=== PATIENT | male | born 1955 | race Caucasian/White ===

== ENCOUNTER 2019-07-25 13:03 | Emergency (ER) | payer MEDICARE, OTHER ==
[~2019-07-25] VITALS: Ht 187 cm; Wt 102.0 kg
[2019-07-25 13:08] VITALS: BP 147/78
--- OUTSIDE RECORDS SUMMARY | 2019-07-25 13:08 | XMS REPORT | Continuity of Care Document ---
Author Organization Unknown Address Unknown Phone Unavailable Allergies There is no data. Medications There is no data. Problems There is no data. Procedures There is no data. Results Test Result Range URIC ACID, SERUM - 07/14/18 12:19 URIC ACID 6.1 mg/dL 4.0-8.0 CBC w/MANUAL DIFF - 07/14/18 12:19 WHITE BLOOD CELL COUNT 7.5 Thousand/uL 3 .8-10.8 RED BLOOD CELL COUNT 4.26 Million/uL 4.2 0-5.80 HEMOGLOBIN 12.4 g/dL 13.2-17.1 HEMATOCRIT 38.5 % 38.5-50.0 MCV 90.4 fL 80.0-100.0 MCH 29.1 pg 27.0-33.0 MCHC 32.2 g/dL 32.0-36.0 RDW 13.2 % 11.0-15.0 PLATELET COUNT 257 Thousand/uL 140-400 MPV 9.8 fL 7.5-12.5 ABSOLUTE NEUTROPHILS 5460 cells/uL 1500- 7800 ABSOLUTE MONOCYTES 585 cells/uL 200-950 ABSOLUTE EOSINOPHILS 218 cells/uL 15-500 ABSOLUTE BASOPHILS 0 cells/uL 0-200 NEUTROPHILS 72.8 % NRG LYMPHOCYTES 13.6 % NRG MONOCYTES 7.8 % NRG EOSINOPHILS 2.9 % NRG BASOPHILS 0 % NRG ABSOLUTE BAND NEUTROPHILS 218 cells/uL 0 -750 ABSOLUTE LYMPHOCYTES 1020 cells/uL 850-3 900 BAND NEUTROPHILS 2.9 % NRG PLATELET ESTIMATION ADEQUATE ADEQUATE CBC MORPHOLOGY NORMAL COMMENT(S) NRG ESR/SED RATE - 07/14/18 12:19 SED RATE BY MODIFIED WESTERGREN 34 mm/h < OR = 20 CBC w/MANUAL DIFF - 07/24/18 15:07 WHITE BLOOD CELL COUNT 7.5 Thousand/uL 3 .8-10.8 RED BLOOD CELL COUNT 4.19 Million/uL 4.2 0-5.80 HEMOGLOBIN 12.2 g/dL 13.2-17.1 HEMATOCRIT 37.9 % 38.5-50.0 MCV 90.5 fL 80.0-100.0 MCH 29.1 pg 27.0-33.0 MCHC 32.2 g/dL 32.0-36.0 RDW 13.2 % 11.0-15.0 PLATELET COUNT 269 Thousand/uL 140-400 MPV 9.7 fL 7.5-12.5 ABSOLUTE NEUTROPHILS 5625 cells/uL 1500- 7800 ABSOLUTE MONOCYTES 75 cells/uL 200-950 ABSOLUTE EOSINOPHILS 158 cells/uL 15-500 ABSOLUTE BASOPHILS 158 cells/uL 0-200 NEUTROPHILS 75.0 % NRG LYMPHOCYTES 16.7 % NRG MONOCYTES 1.0 % NRG EOSINOPHILS 2.1 % NRG BASOPHILS 2.1 % NRG ABSOLUTE BAND NEUTROPHILS 233 cells/uL 0 -750 ABSOLUTE LYMPHOCYTES 1253 cells/uL 850-3 900 BAND NEUTROPHILS 3.1 % NRG PLATELET ESTIMATION ADEQUATE ADEQUATE CBC MORPHOLOGY NORMAL ESR/SED RATE - 07/24/18 15:07 SED RATE BY MODIFIED WESTERGREN 19 mm/h < OR = 20 RA (RHEUMATOID) FACTOR - 07/24/18 15:07 RHEUMATOID FACTOR <14 IU/mL <14 WOO - 07/24/18 15:07 WOO SCREEN, IFA NEGATIVE NEGATIVE LYME, TOTAL ANTIBODY/REFLEX WESTERN BLOT - 07/30/18 09:41 LYME AB SCREEN <0.90 index NRG ESR/SED RATE - 02/23/19 15:22 SED RATE BY MODIFIED WESTERGREN 9 mm/h < OR = 20 TESTOSTERONE, FREE AND TOTAL - 02/23/19 15:22 TESTOSTERONE, TOTAL, LC/MS/MS 128 ng/dL 250-1100 TESTOSTERONE, FREE 23.1 pg/mL 46.0-224.0 TESTOSTERONE,BIOAVAILABLE 42.5 ng/dL 110 .0-575.0 SEX HORMONE BINDING GLOBULIN 20 nmol/L 2 2-77 A1C - 02/23/19 15:22 HEMOGLOBIN A1c 5.1 % of total Hgb <5.7 VITAMIN B12/FOLATE, SERUM PANEL - 15:22 VITAMIN B12 >2000 pg/mL 200-1100 FOLATE, SERUM >24.0 ng/mL NRG Encounters ACCT No. Visit Date/Time Discharge Status Pt. Type Provider Facility Loc./Unit Complaint [id number] 03/26/2019 13:30:00 03/26/2019 23:59:5 9 [facility] Outpatient [facility] [id number] 02/23/2019 15:15:00 Document Registration [id number] 07/30/2018 10:00:00 Document Registration [id number] 07/24/2018 14:15:00 Document Registration [id number] 07/14/2018 11:40:00 Document Registration
--- OUTSIDE RECORDS SUMMARY | 2019-07-25 13:08 | XMS REPORT ---
Author Author Francisco BROWN [facility] MAIN Address [address] [place] [address] Care Team Providers Care Mammography Technologist Name Role Phone JAIMEE BROWN Unavailable PROBLEMS Type Condition ICD9-CM Code ARR36-ON Code Onset Dates Condition S tatus SNOMED Code Problem Situational depression F43.21 Active 63045588 Problem Hyperglyceridemia, pure E78.1 Active 000714684 Problem Other, mixed, or unspecified nondependent drug a buse, unspecified F19.10 Active 051133493 Problem Peyronie disease N48.6 Active 133 5005 Problem Exacerbation of Crohn''s disease with complication K50.919 Active 96977331 Problem Crohn''s disease with compli cation, unspecified gastrointestinal tract location K50.919 Active 81612089 Problem Other chronic pain G89.29 Active 8 5416655 Problem Left otitis externa H60.92 Active [id number] Problem Protein malnutrition E46 Active 12746798 Problem Vitamin B12 deficiency E53.8 Active 270996416 Problem Hypoglycemia E16.2 Active 1735495 03 Problem CVA (cerebral infarction) I63.9 Acti ve 064613361 Problem Chronic pain G89.29 Active 8918096 1 Problem 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 Act ag 12969631 Problem Peyronie's disease N48.6 Active 1 950580 ALLERGIES Substance Reaction Event Type Date Status Keflex rash Drug Allergy Apr, Active Cefazolin Sodium rash Drug Allergy Apr, Active Zolpidem Tartrate unknown Drug Allergy Apr, Active Butorphanol Tartrate unknown Drug Allergy Apr, Active Penicillin V Potassium swelling Drug Allergy Apr, Activ e Penicillin G Benzathine anaphylaxis Drug Allergy Apr, Acti ve Ofloxacin diarrhea Drug Allergy Apr, Active Morphine Sulfate unknown Drug Allergy Apr, Active Promethazine HCl unknown Drug Allergy Apr, Active Piperacillin Sod-Tazobactam So swelling Drug Allergy Apr, Active IBU unknown Drug Allergy Apr, Active ENCOUNTERS [facility] Date [facility] [address] [address] Feb, [facility] [place] [address] [address] Oct, Vitamin B12 deficiency E53.8 [facility] [address] [address] Oct, Crohn''s disease with complication, unsp ecified gastrointestinal tract location K50.919 ; Situational depression F43.21 and Onychomycosis of great toe B35.1 [facility] [place] [address] [address] Oct, Vitamin B12 deficiency E53.8 [facility] [address] [address] Sep, Vitamin B12 deficiency E53.[address] [address] Sep, Vitamin B12 deficiency E53.[address] for venous access device care Z45.2 [facility] [address] [address] Sep, [address] [address] Aug, [facility] [address] [address] Aug, [address] [address] Aug, Crohn''s disease with complication, unsp ecified gastrointestinal tract location K50.[address] [address] Aug, CVA (cerebral infarction) I63.[address] [address] Aug, Elevated sed rate R70.0 [facility] [address] [address] Aug, Vitamin B12 deficiency E53.8 and Crohn'' s disease with complication, unspecified gastrointestinal tract location K50.[address] [address] Jul, Arthralgia, unspecified joint M25.[address] [address] Jul, Elevated sed rate R70.0 and Chronic pain G89.[address] [address] Jul, Elevated sed rate R70.0 and Chronic pain G89.[address] [address] Jul, AK (actinic keratosis) L57.0 ; Elevated sed rate R70.0 ; Arthralgia, unspecified joint M25.50 ; Arthralgia of right wrist M25.531 and Vitamin B12 deficiency E53.[address] [address] Jul, Arthralgia of right wrist M25.[address] [address] Jul, Arthralgia of right wrist M25.[address] [address] June, Cellulitis of left lower extremity L03.1 16 ; Vitamin B12 deficiency E53.8 and Encounter for venous access device care Z45.[address] [address] June, Vitamin B12 deficiency E53.[address] [address] May, Exacerbation of Crohn''s disease with co mplication K50.[address] [address] May, [address] [address] May, CVA (cerebral infarction) I63.9 ; Perfor ation of left tympanic membrane H72.92 ; Basal cell carcinoma (BCC) of left side of nose C44.311 ; B12 deficiency E53.8 and Hyperglycemia R73.9 [facility] [address] [facility] [address] 18 Apr, 2018 Left otitis media H66.[address] [address] 15 Apr, 2018 Crohn''s disease with complication, unsp ecified gastrointestinal tract location K50.[address] [address] 13 Apr, 2018 Crohn''s disease with complication, unsp ecified gastrointestinal tract location K50.919 ; Other, mixed, or unspecified nondependent drug abuse, unspecified F19.10 ; Hypoglycemia E16.2 ; Hyperglyceridemia, pure E78.1 ; Orchitis and epididymitis, unspecified N45.3 ; Hypopotassemia E87.6 ; Prostatitis, unspecified N41.9 ; Anemia, unspecified type D64.9 ; Endocarditis, unspecified chronicity, unspecified endocarditis type I38 ; Abdominal pain, unspecified abdominal location R10.9 ; Situational depression F43.21 ; Vitamin B12 deficiency E53.8 ; Ileus K56.7 ; Protein malnutrition E46 ; Other chronic pain G89.29 ; Testosterone deficiency E34.9 ; Testicular pain N50.819 ; Exacerbation of Crohn''s disease with complication K50.919 ; Peyronie disease N48.6 and Elevated liver enzymes R74.8 IMMUNIZATIONS No Known Immunizations SOCIAL HISTORY Never Assessed REASON FOR VISIT left ear draining red, Pt presents today with drainage from left ear that starte d yesterday/ pt stated minor pain/ PLAN OF CARE Activity Details Follow Up prn Reason: VITAL SIGNS Height 73.5 in 2018-04-28 Weight 202 lbs 2018-04-28 Temperature 97.3 degrees Fahrenheit 2018-04-28 BMI 26.29 kg/m2 2018-04-28 Blood pressure systolic 142 mmHg 2018-04-28 Blood pressure diastolic 80 mmHg 2018-04-28 MEDICATIONS Medication Instructions Dosage Frequency Start Date End Date Duration S tatus Cholestyramine 4 GM/DOSE MIX AND TAKE 1 SCOOPFUL BY MOUTH TWICE DAILY DIRECTED 30 Not-Taking Spironolactone 50 MG Orally Once a day 1 tablet with food 24h 30 day(s) Active Questran Light 4 GM/DOSE Orally Twice a day 1 scoop 12h 30 day(s) Active Levothyroxine Sodium 25 MCG Orally Once a day 1 tablet on an empty stomach in the morning 24h 30 day(s) Active Azithromycin 250 MG Orally Once a day 2 tablets on the fi rst day, then 1 tablet daily for 4 days 24h Apr, 5 day(s) Active Cyanocobalamin 1000 MCG/ML Injection every 2 weeks 1 ml Apr, lifetime Active Lisinopril 5 MG Orally Once a day 1 tablet 24h 30 da y(s) Active Methadone HCl 10 MG/5ML Orally every 12 hrs 5 ml as needed 12h Active Effexor Active RESULTS No Results PROCEDURES Procedure Date Ordered Result Body Site [facility] VISIT NEW PATIENT April 28, 2018 INSTRUCTIONS MEDICATIONS ADMINISTERED No Known Medications MEDICAL (GENERAL) HISTORY Type Description Date Medical History CVA (cerebral infarction) Medical History Brain stem stroke syndrome Medical History Crohn''s disease with compli cation, unspecified gastrointestinal tract location Medical History Hypoglycemia Medical History Hyperglyceridemia, pure Medical History Situational depression Medical History Chronic pain Medical History Peyronie's disease Medical History Other, mixed, or unspecified nondependent drug abuse, unspecified Medical History Hypoglycemia Medical History Hyperglyceridemia, pure Medical History Protein malnutrition Surgical History tonsillectomy 1963 Surgical History testicle removal right Surgical History colon resection x6 Surgical History appendectomy 1976 Surgical History colon adhesion removal x5 Surgical History cholecystectomy 1988 Surgical History hernia inguinal repair (bilateral) 02/17 Surgical History insert non-tunnel cv cath 04/30/2008 Surgical History hernia repair 1963 Hospitalization History stroke Hospitalization History surgeries Hospitalization History crohns disease, several times Hospitalization History right ankle, possible infection
--- OUTSIDE RECORDS SUMMARY | 2019-07-25 13:08 | XMS REPORT ---
Author Author Francisco DAO [facility] Address [address] [place] [address] Care Team Providers Care Rn Homecare Name Role Phone HERBERT DAO Unavailable PROBLEMS Type Condition ICD9-CM Code SMD93-LS Code Onset Dates Condition S tatus SNOMED Code Problem Protein malnutrition E46 Active 36381955 Problem Crohn''s disease with compli cation, unspecified gastrointestinal tract location K50.919 Active 25924830 Problem Exacerbation of Crohn''s disease with complication K50.919 Active 97385638 Problem Peyronie disease N48.6 Active 133 5005 Problem Other, mixed, or unspecified nondependent drug a buse, unspecified F19.10 Active 034081835 Problem Hypoglycemia E16.2 Active 0404694 03 Problem Peyronie's disease N48.6 Active 1 318958 Problem Situational depression F43.21 Active 40500943 Problem Left otitis externa H60.92 Active 3074070057702963 Problem Hyperglyceridemia, pure E78.1 Active 242068387 Problem Other chronic pain G89.29 Active 8 4433091 Problem CVA (cerebral infarction) I63.9 Acti ve 478086377 Problem 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 Act ag 01194154 Problem Chronic pain G89.29 Active 8978275 1 ALLERGIES No Information ENCOUNTERS Encounter Location Date Diagnosis [address] [address] Aug, [address] [address] 24 Jul, 2018 Arthralgia, unspecified joint M25.[address] [address] Jul, Elevated sed rate R70.0 and Chronic pain G89.[address] [address] Jul, Elevated sed rate R70.0 and Chronic pain G89.[address] [address] Jul, [place] (actinic keratosis) L57.0 ; Elevated sed rate R70.0 ; Arthralgia, unspecified joint M25.50 ; Arthralgia of right wrist M25.531 and Vitamin B12 deficiency E53.[address] [address] Jul, Arthralgia of right wrist M25.[address] [address] Jul, Arthralgia of right wrist M25.[address] [address] June, Cellulitis of left lower extremity L03.1 16 ; Vitamin B12 deficiency E53.8 and Encounter for venous access device care Z45.[address] [address] June, Vitamin B12 deficiency E53.[address] [address] May, Exacerbation of Crohn''s disease with co mplication K50.[address] [address] May, [address] [address] May, CVA (cerebral infarction) I63.9 ; Perfor ation of left tympanic membrane H72.92 ; Basal cell carcinoma (BCC) of left side of nose C44.311 ; B12 deficiency E53.8 and Hyperglycemia R73.9 [facility] [address] [place] [address] Apr, Left otitis media H66.[address] [address] Apr, Crohn''s disease with complication, unsp ecified gastrointestinal tract location K50.9[address] [place] [address] 13 Apr, 2018 Crohn''s disease with complication, [...] N48.6 and Elevated liver enzymes R74.8 IMMUNIZATIONS Vaccine Route Administration Date Status B12, VITAMIN (UP TO 1000 MCG) IM Intramuscular April 25, 2018 A dministered SOCIAL HISTORY Never Assessed REASON FOR VISIT port flush/B12 PLAN OF CARE VITAL SIGNS MEDICATIONS Unknown Medications RESULTS No Results PROCEDURES Procedure Date Ordered Result Body Site [facility] April 25, 2018 THER/PROPH/DIAG INJ, SC/IM April 25, 2018 B12, VITAMIN (UP TO 1000 MCG) April 25, 2018 INSTRUCTIONS MEDICATIONS ADMINISTERED No Known Medications [...] Medical History Protein malnutrition Surgical History tonsillectomy Surgical History testicle removal right Surgical History colon resection x6 Surgical History appendectomy 1976 Surgical History colon adhesion removal x5 Surgical History cholecystectomy Hospitalization History stroke Hospitalization History surgeries Hospitalization History crohns disease, several times Hospitalization History right ankle, possible infection
--- OUTSIDE RECORDS SUMMARY | 2019-07-25 13:08 | XMS REPORT ---
Author Author Francisco DAO [facility] Address [address] [place] [address] Care Team Providers Care Manager Chinese Name Role Phone MALLY DAOWELL Unavailable PROBLEMS Type Condition ICD9-CM Code DNQ08-NU Code Onset Dates Condition S tatus SNOMED Code Problem Protein malnutrition E46 Active 50767931 Problem Crohn''s disease with compli cation, unspecified gastrointestinal tract location K50.919 Active 33363728 Problem Exacerbation of Crohn''s disease with complication K50.919 Active 11024655 Problem Situational depression F43.21 Active 76466767 Problem Hyperglyceridemia, pure E78.1 Active 252445726 Problem Other, mixed, or unspecified nondependent drug a buse, unspecified F19.10 Active 313999998 Problem Peyronie disease N48.6 Active 133 5005 Problem 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 Act ag 64773968 Problem Chronic pain G89.29 Active 4448882 1 Problem CVA (cerebral infarction) I63.9 Acti ve 712630396 Problem Type 2 diabetes mellitus wit h other specified complication, without long-term current use of insulin E11.69 Active 62868059 Problem Other chronic pain G89.29 Active 8 0784059 Problem Crohn's disease of small intestine without complications K50.00 Active 26201068 Problem Hypoglycemia E16.2 Active 9048057 03 Problem Peyronie's disease N48.6 Active 1 136787 Problem Left otitis externa H60.92 Active 1442825027965804 Problem Vitamin B12 deficiency E53.8 Active 437770296 Problem Moderate depressive disorder F32.9 A ctive 689320045 ALLERGIES Substance Reaction Event Type Date Status Ibuprofen rash Drug Allergy May, Active Cefazolin Sodium rash Drug Allergy May, Active Promethazine HCl unknown Drug Allergy May, Active Butorphanol Tartrate unknown Drug Allergy May, Active Penicillin G Benzathine anaphylaxis Drug Allergy May, Acti ve Ofloxacin diarrhea Drug Allergy May, Active Morphine Sulfate unknown Drug Allergy May, Active Keflex rash Drug Allergy May, Active Piperacillin Sod-Tazobactam So swelling Drug Allergy May, Active Penicillin V Potassium swelling Drug Allergy May, Activ e Zolpidem Tartrate unknown Drug Allergy May, Active ENCOUNTERS Encounter Location Date Diagnosis [address] [id number] [address] Aug, [address] [id number] [address] Jul, [address] [id number] [address] 14 Jun, 2019 Moderate depressive disorder F32.9 ; Pain of left eye H57.12 and Chronic pain G89.[address] [id number] [address] June, Vitamin B12 deficiency E53.8 and Encounter for care related to Port-a-Cath Z45.[address] [id number] [address] 06 Jun, 2019 CVA (cerebral infarction) I6 3.[address] [id number] [place] [address] 16 Apr, 2019 Vitamin B12 deficiency E53.8 and Encounter for venous access device care Z45.[address] [id number] [place] [address] 13 Mar, 2019 Vitamin B12 deficiency E53.8 and Encounter for venous access device care Z45.[address] [id number] [address] 10 Mar, [address] [id number] [place] [address] 07 Mar, 2019 CVA (cerebral infarction) I6 3.9 ; Moderate depressive disorder F32.9 and Chronic pain G89.[address] [id number] [place] [address] 04 Mar, 2019 CVA (cerebral infarction) I6 3.[address] [id number] [place] [address] Feb, Crohn's disease of small int estine without complications K50.00 ; Moderate depressive disorder F32.9 ; Vitamin B12 deficiency E53.8 ; Testosterone deficiency E34.9 ; Chronic pain G89.29 and Type 2 diabetes mellitus with other specified complication, without long-term current use of insulin E11.[address] [id number] [address] Feb, Hyperglycemia R73.9 ; Elevat ed sed rate R70.0 ; Vitamin B12 deficiency E53.8 and Testosterone deficiency E34.[address] [id number] [address] Feb, Encounter for venous access device care Z45.[address] [id number] [address] Jan, B12 deficiency E53.[address] [id number] [address] Dec, Vitamin B12 deficiency E53.8 ; Encounter for venous access device care Z45.2 and Encounter for immunization Z23 [address] [id number] [address] Dec, [address] [id number] [address] Nov, CVA (cerebral infarction) I6 3.[address] [id number] [place] [address] Nov, Vitamin B12 deficiency E53.8 ; Hyperglycemia R73.9 ; Testosterone deficiency E34.9 and Elevated sed rate R70.[address] [id number] [address] Nov, [facility] [address] [id number] [place] [address] Nov, Crohn''s disease with compli cation, unspecified gastrointestinal tract location K50.919 [facility] [address] [id number] [place] [address] Oct, Vitamin B12 deficiency E53.8 [facility] [address] [id number] [place] [address] Oct, Crohn''s disease with compli cation, unspecified gastrointestinal tract location K50.919 ; Situational depression F43.21 and Onychomycosis of great toe B35.1 [facility] [address] [id number] [place] [address] Oct, Vitamin B12 deficiency E53.8 [facility] [address] [id number] [place] [address] Sep, Vitamin B12 deficiency E53.8 [facility] [place] [address] [id number] [address] Sep, Vitamin B12 deficiency E53.8 and Encounter for venous access device care Z45.2 [facility] [address] [id number] [place] [address] Sep, [facility] [address] [id number] [place] [address] Aug, [facility] [address] [id number] [place] [address] Aug, [facility] [place] [address] 340[address] [id number] [address] Aug, Crohn''s disease with compli cation, unspecified gastrointestinal tract location K50.919 [facility] [address] [id number] [place] [address] Aug, CVA (cerebral infarction) I6 3.9 [facility] [address] [id number] [place] [address] Aug, Elevated sed rate R70.0 [facility] [place] [address] [id number] [address] Aug, Vitamin B12 deficiency E53.8 and Crohn''s disease with complication, unspecified gastrointestinal tract location K50.[address] [id number] [place] [address] Jul, Arthralgia, unspecified join t M25.[address] 340[address] [id number] [address] Jul, Elevated sed rate R70.0 and Chronic pain G89.29 [facility] [place] [address] 340[address] [id number] [address] Jul, Elevated sed rate R70.0 and Chronic pain G89.[address] 340[address] [id number] [address] Jul, AK (actinic keratosis) L57.0 ; Elevated sed rate R70.0 ; Arthralgia, unspecified joint M25.50 ; Arthralgia of right wrist M25.531 and Vitamin B12 deficiency E53.8 [facility] [place] R[facility] [address] 340[address] [id number] [place] [address] Jul, Arthralgia of right wrist M2 5.[address] 340[address] [id number] [address] Jul, Arthralgia of right wrist M2 5.[address] 340[address] [id number] [address] June, Cellulitis of left lower ext remity L03.116 ; Vitamin B12 deficiency E53.8 and Encounter for venous access device care Z45.2 [facility] [place] [address] 340[address] [id number] [address] June, Vitamin B12 deficiency E53.[address] [id number] [place] [address] May, Exacerbation of Crohn''s dis ease with complication K50.[address] [id number] [place] [address] May, [facility] [place] [facility] [address] [id number] [place] [address] May, CVA (cerebral infarction) I6 3.9 ; Perforation of left tympanic membrane H72.92 ; Basal cell carcinoma (BCC) of left side of nose C44.311 ; B12 deficiency E53.8 and Hyperglycemia R73.9 [facility] [place] WALK IN [facility] [address] [id number] [place] [address] Apr, Left otitis media H66.[address] 340[address] [id number] [place] [address] Apr, Crohn''s disease with compli cation, unspecified gastrointestinal tract location K50.[address] [id number] [place] [address] Apr, Crohn''s disease with compli cation, unspecified gastrointestinal tract location K50.919 ; Other, mixed, or unspecified nondependent drug abuse, unspecified F19.10 ; Hypoglycemia E16.2 ; Hyperglycerid emia, pure E78.1 ; Orchitis and epididymitis, unspecified [...] VITAMIN (UP TO 1000 MCG) IM Intramuscular May 12, 2018 A dministered SOCIAL HISTORY Never Assessed REASON FOR VISIT stroke f/u PLAN OF CARE Activity Details Follow Up 6 Months Reason:fu VITAL SIGNS Height 6'2" in 2018-05-12 Weight 198 lbs 2018-05-12 BMI 25.42 kg/m2 2018-05-12 Blood pressure systolic 136 mmHg 2018-05-12 Blood pressure diastolic 84 mmHg 2018-05-12 MEDICATIONS Medication Instructions Dosage Frequency Start Date End Date Duration S tatus Dilaudid 8 MG Orally 4 times a day 1 tablet as needed 6h Active Methadone HCl 10 MG Orally Once a day 1 tablet 24h Active Lisinopril 5 MG Orally Once a day 1 tablet 24h 30 da y(s) Active Levothyroxine Sodium 25 MCG Orally Once a day 1 tablet on an empty stomach in the morning 24h 30 day(s) Active Spironolactone 50 MG Orally Once a day 1 tablet with food 24h 30 day(s) Active Cyanocobalamin 1000 MCG/ML Injection every 2 weeks 1 ml Apr, lifetime Active Gabapentin 100 MG Orally Three times a day 1 capsule 8h 30 day(s) Active Temazepam 15 MG Orally Once a day 1-2 capsule at bedtime as needed 24h May, 30 days Active Questran Light 4 GM/DOSE Orally Twice a day 1 scoop 12h 30 day(s) Active Venlafaxine HCl ER 150 MG Orally Once a day 1 capsule with food 24h 30 day(s) Active RESULTS Name Result Date Reference Range A1C (IN HOUSE) A1C IN HOUSE 5.3 4.3 - 5.6 % Previous A1c Lot [id number] Exp date 01/2020 PROCEDURES Procedure Date Ordered Result Body Site GLYCATED HEMOGLOBIN TEST May 12, 2018 THER/PROPH/DIAG INJ, SC/IM May 12, 2018 B12, VITAMIN (UP TO 1000 MCG) May 12, 2018 [facility] VISIT ESTABLISHED PATIENT May 12, 2018 DESTROY BENIGN/PREMLG LESION May 12, 2018 LESION DESTRUCTION SINGLE (PREMALG) 2018-05-12 N/A INSTRUCTIONS MEDICATIONS ADMINISTERED No Known Medications MEDICAL [...] cath 04/30/2008 Surgical History hernia repair 1963 Surgical History cataract removal on both eyes 11/2018 Hospitalization History stroke Hospitalization History surgeries Hospitalization History crohns disease, several times Hospitalization History right ankle, possible infection
--- NOTE | 2019-07-25 13:33 | ED EENT ---
History of Present Illness General Chief Complaint: Eye Problems Stated Complaint: BLOOD IN RIGHT EYE Nursing Triage Note: ARRIVED VIA AMB WITH COMPLAINTS OF BLOOD SHOT RIGHT EYE THAT IS NOW LEAKING OUT THE SIDE OF THE EYE. DENIES INJURY. Source: patient Exam Limitations: no limitations History of Present Illness Date Seen by Provider: Jul 25, 2019 Time Seen by Provider: 13:30 Initial Comments To ER with reports of blood on the right eye. He states that he will have a blood vessel break on his eye about every 2 weeks. He has no discomfort and no visual changes. He had cataract surgery by Dr. Hines last year and has seen him a few times since then. He takes a baby aspirin daily. He takes prednisone daily for Crohn's disease. He has been using Plantain which is apparently a weed in his yard to help with pain and uses Wild Lettuce which he dehydrates and makes in to a tea to at home to help with. He denies any trauma to the eye, denies any coughing or straining or vomiting episodes. Timing/Duration: abrupt Severity: moderate Location: eye (R) Associated Symptoms: denies symptoms Allergies and Home Medications Allergies Coded Allergies: Penicillins (Verified Allergy, Severe, EDEMA, 07/25/19) adhesive tape (Verified Allergy, Severe, RASH, 07/25/19) cefazolin (Verified Allergy, Severe, RASH, 07/25/19) cephalexin (Verified Allergy, Severe, RASH, 07/25/19) morphine (Verified Allergy, Severe, EDEMA, 07/25/19) butabarbital (Verified Allergy, Unknown, 07/25/19) butorphanol (Verified Allergy, Unknown, 07/25/19) ibuprofen (Verified Allergy, Unknown, 07/25/19) piperacillin (Verified Allergy, Unknown, EDEMA, 07/25/19) promethazine (Verified Allergy, Unknown, 07/25/19) silicone (Verified Allergy, Unknown, 07/25/19) zolpidem (Verified Allergy, Unknown, 07/25/19) ofloxacin (Verified Adverse Reaction, Unknown, DIARRHEA, 07/25/19) Patient Home Medication List Home Medication List Reviewed: Yes Review of Systems Review of Systems Constitutional: see HPI Eyes: See HPI Ears: No Symptoms Reported Nose: no symptoms reported Mouth: no symptoms reported Throat: no symptoms reported Respiratory: no symptoms reported Cardiovascular: no symptoms reported Musculoskeletal: no symptoms reported Skin: no symptoms reported Past Ngnsffl-Kdadtc-Abovti Hx Patient Social History Recent Foreign Travel: No Contact w/Someone Who Travel: No Recent Infectious Disease Expo: No Physical Exam Vital Signs Vital Signs - First Documented 07/25/19 13:08 Temp 37.0 Pulse 84 Resp 16 B/P (MAP) 147/78 (101) Pulse Ox 94 O2 Delivery Room Air Height, Weight, BMI Height: '" Weight: lbs. oz. kg; 29.00 BMI Method: General Appearance: WD/WN, no apparent distress Eyes: right eye other (there is a large subconjunctival hemorrhage affecting all quadrants of the visualized low except for the cornea. There is no hyphema. There is negative ecchymosis to the lateral aspect of the upper eyelid. Again, he denies trauma or injury to the area.); bilateral eye PERRL, bilateral eye EOMI Mouth/Throat: normal mouth inspection, pharynx normal Neck: non-tender, full range of motion Respiratory: no respiratory distress, no accessory muscle use Neurologic/Psychiatric: alert, normal mood/affect, oriented x 3 Skin: normal color, warm/dry Progress/Results/Core Measures Results/Orders My Orders Orders - RONALD BAIRD APRN Cbc With Automated Diff (07/25/19 13:29) Protime With Inr (07/25/19 13:29) Partial Thromboplastin Time (07/25/19 13:29) Vital Signs/I&O 07/25/19 13:08 Temp 37.0 Pulse 84 Resp 16 B/P (MAP) 147/78 (101) Pulse Ox 94 O2 Delivery Room Air Blood Pressure Mean: 101 Departure Communication (Admissions) Spoke with Dr. Bojorquez from optometry, he agrees with the workup and plan of care. All Impression Primary Impression: Subconjunctival hemorrhage of right eye Disposition: HOME, SELF-CARE Condition: Stable Departure-Patient Inst. Decision time for Depature: 13:36 Referrals: MINERVA DISLA OD, MAXWELL MD (PCP/Family) Primary Care Physician Patient Instructions: Subconjunctival Hemorrhage Add. Discharge Instructions: 1. This is a subconjunctival hemorrhage and typically resolves in 2-3 weeks without long-term effects. I will have him follow-up with Dr. Disla. Call saturday for an appointment time. All discharge instructions reviewed with patient and/or family. Voiced understanding. RONALD BAIRD GROOVER AND STRIPER OPERATOR Jul 25, 2019 13:33
[2019-07-25 13:50] LABS: BASOPHILS % (AUTO) 0 % (0-10); EOSINOPHILS # (AUTO) 0.2 10^3/uL (0.0-0.3); EOSINOPHILS % (AUTO) 3 % (0-10); HEMATOCRIT 34 % (40-54); HEMOGLOBIN 11.2 G/DL (13.3-17.7); LYMPHOCYTES # (AUTO) 1.3 X 10^3 (1.0-4.0); LYMPHOCYTES % (AUTO) 26 % (12-44); MEAN CORPUSCULAR HEMOGLOBIN 32 PG (25-34); MEAN CORPUSCULAR HGB CONC 33 G/DL (32-36); MEAN CORPUSCULAR VOLUME 97 FL (80-99); MEAN PLATELET VOLUME 9.1 FL (7.4-10.4); MONOCYTES # (AUTO) 0.4 X 10^3 (0.0-1.0); MONOCYTES % (AUTO) 8 % (0-12); NEUTROPHILS # (AUTO) 3.3 X 10^3 (1.8-7.8); NEUTROPHILS % (AUTO) 63 % (42-75); PLATELET COUNT 192 10^3/uL (130-400); RED CELL DISTRIBUTION WIDTH 13.5 % (10.0-14.5); WHITE BLOOD COUNT 5.3 10^3/uL (4.3-11.0)
[2019-07-25 14:00] LABS: INR 0.9 (0.8-1.4)
== END 2019-07-25 14:14 | disposition home or self-care (01) ==
LOC: ER 13:04
DX: H11.31 Conjunctival hemorrhage, right eye (principal); K50.90 Crohn's disease, unspecified, without complications; Z79.52 Long term (current) use of systemic steroids; Z88.0 Allergy status to penicillin; Z88.8 Allergy status to other drugs, medicaments and biological substances; Z88.5 Allergy status to narcotic agent; Z88.1 Allergy status to other antibiotic agents; Z79.82 Long term (current) use of aspirin
CPT/HCPCS: 36415; 85025; 85610; 85730

== ENCOUNTER 2019-12-29 13:48 | Inpatient (IN) | payer MEDICARE ==
[~2019-12-29] VITALS: Ht 187.9 cm; Wt 97.1 kg
[2019-12-29] MEDS ORDERED: ONDANSETRON 4 MG/2 ML (SDV) Z0FRAN IVP ONE (14:00)
--- NOTE | 2019-12-29 14:24 | Diagnostic Imaging Report ---
INDICATION: Weakness. Abdominal pain. COMPARISON: None. FINDINGS: Single frontal view of the chest demonstrates normal heart size and pulmonary vascularity. Right-sided subclavian Port-A-Cath is noted with tip in the low SVC. The lungs are well aerated and clear. No large pleural effusion or pneumothorax is seen. The visualized osseous structures show multiple old posterolateral left rib fractures. IMPRESSION: 1. No acute cardiopulmonary process. Dictated by: Dictated on workstation # [id number]
[2019-12-29] MEDS: NS IV 1000 ML 1,000 ML IV SCH ×3 (14:52→23:52)
[2019-12-29 14:56] LABS: HEMATOCRIT 28 % (40-54); HEMOGLOBIN 9.2 G/DL (13.3-17.7); MEAN CORPUSCULAR HEMOGLOBIN 31 PG (25-34); WHITE BLOOD COUNT 5.8 10^3/uL (4.3-11.0)
[2019-12-29 14:57] LABS: BASOPHILS % (AUTO) 0 % (0-10); EOSINOPHILS % (AUTO) 3 % (0-10); LYMPHOCYTES % (AUTO) 14 % (12-44); MEAN CORPUSCULAR HGB CONC 33 G/DL (32-36); MEAN CORPUSCULAR VOLUME 95 FL (80-99); MEAN PLATELET VOLUME 9.8 FL (7.4-10.4); MONOCYTES % (AUTO) 7 % (0-12); NEUTROPHILS % (AUTO) 77 % (42-75); PLATELET COUNT 257 10^3/uL (130-400)
[2019-12-29 14:58] LABS: EOSINOPHILS # (AUTO) 0.2 10^3/uL (0.0-0.3); LYMPHOCYTES # (AUTO) 0.8 X 10^3 (1.0-4.0); MONOCYTES # (AUTO) 0.4 X 10^3 (0.0-1.0); NEUTROPHILS # (AUTO) 4.5 X 10^3 (1.8-7.8)
[2019-12-29 15:04] LABS: BILIRUBIN,URINE NEGATIVE (NEGATIVE); CLARITY,URINE CLEAR; COLOR,URINE YELLOW; GLUCOSE, URINE (UA) NEGATIVE (NEGATIVE); KETONES,URINE NEGATIVE (NEGATIVE); LEUKOCYTE ESTERASE ,URINE NEGATIVE (NEGATIVE); NITRITE,URINE NEGATIVE (NEGATIVE); PH,URINE 5.5 (5-9); PROTEIN,URINE 1+ (NEGATIVE); RBC,URINE 0-2 /HPF; SQUAMOUS EPITHELIAL CELL,UR RARE /HPF
[2019-12-29 15:10] LABS: POTASSIUM 5.2 MMOL/L (3.6-5.0); SODIUM 141 MMOL/L (135-145)
[2019-12-29 15:11] LABS: ALKALINE PHOSPHATASE 110 U/L (40-136); BILIRUBIN,TOTAL 0.4 MG/DL (0.1-1.0); BUN/CREATININE RATIO 16; CARBON DIOXIDE 20 MMOL/L (21-32); CHLORIDE 110 MMOL/L (98-107); CREATININE SERUM 3.04 MG/DL (0.60-1.30); GFR ESTIMATED 21; GLUCOSE 109 MG/DL (70-105); MAGNESIUM 1.3 MG/DL (1.6-2.4)
[2019-12-29 15:12] LABS: ALANINE AMINOTRANSFERASE 8 U/L (0-55); ALBUMIN 4.4 GM/DL (3.2-4.5); LIPASE 64 U/L (8-78); TOTAL PROTEIN 7.1 GM/DL (6.4-8.2)
--- NOTE | 2019-12-29 15:57 | Diagnostic Imaging Report ---
PROCEDURE: CT abdomen and pelvis without contrast. TECHNIQUE: Multiple contiguous axial images were obtained through the abdomen and pelvis without the use of intravenous contrast. Auto Exposure Controls were utilized during the CT exam to meet ALARA standards for radiation dose reduction. INDICATION: Abdominal pain and history of small bowel obstruction. COMPARISON: No prior studies are available for comparison. FINDINGS: Lung bases demonstrate some scarring or atelectasis in the left lower lobe. Liver is unremarkable. Gallbladder is surgically absent. There is no biliary ductal dilatation. Pancreas and spleen are unremarkable. No adrenal mass is detected. No renal calculi are seen. There is no hydronephrosis. Postsurgical changes in the anterior midabdomen are seen involving the transverse colon. Bowel loops do not appear to be appreciably dilated. No definite obstruction is seen. There is moderate stool in the colon, consistent with constipation. There is no free fluid or fluid collection identified. Bony structures are unremarkable. IMPRESSION: Moderate stool, suggestive of constipation. No other significant abnormality is identified. Dictated by: Dictated on workstation # [id number]
[2019-12-29] MEDS ORDERED: NS IV 1000 ML 1,000 ML IV SCH ×3 (16:15→19:30)
--- NOTE | 2019-12-29 16:23 | ED Abdominal Pain ---
General Chief Complaint: Abdominal/GI Problems Stated Complaint: N/V Nursing Triage Note: Patient presents to the ED with c/o nausea, vomiting, diarrhea, and confusion. He reports that he started becoming nauseous and vomited last night. He states that he has become more confused and she thinks he is dehydrated. Sepsis Screen: No Definite Risk Source of Information: Patient Exam Limitations: No Limitations History of Present Illness Date Seen by Provider: Dec 29, 2019 Time Seen by Provider: 14:30 Initial Comments Patient is a 64-year-old male with history of multiple small bowel obstructions and bowel resection who presents with nausea vomiting and diarrhea with increased confusion starting greater than 12 hours ago. Patient states he is nauseated constantly has had difficulty keeping food and fluid down and that when he does EDS liquid diarrhea. He denies dizziness lightheadedness chest pain palpitations and shortness of breath. States he feels weak and fatigued when standing. No fevers chills, sweats. No known COVID exposures. Patient states current symptoms feel different than previous bowel obstructions. Timing/Duration: 12-24 Hours Severity/Quality: Moderate Location: Generalized Abdomen Radiation: No Radiation Modifying Factors: Improves With Vomiting Associated Symptoms: Nausea/Vomiting Allergies and Home Medications Allergies Coded Allergies: Penicillins (Verified Allergy, Severe, EDEMA, 07/25/19) adhesive tape (Verified Allergy, Severe, RASH, 07/25/19) cefazolin (Verified Allergy, Severe, RASH, 07/25/19) cephalexin (Verified Allergy, Severe, RASH, 07/25/19) morphine (Verified Allergy, Severe, EDEMA, 07/25/19) butabarbital (Verified Allergy, Unknown, 07/25/19) butorphanol (Verified Allergy, Unknown, 07/25/19) ibuprofen (Verified Allergy, Unknown, 07/25/19) piperacillin (Verified Allergy, Unknown, EDEMA, 07/25/19) promethazine (Verified Allergy, Unknown, 07/25/19) silicone (Verified Allergy, Unknown, 07/25/19) zolpidem (Verified Allergy, Unknown, 07/25/19) ofloxacin (Verified Adverse Reaction, Unknown, DIARRHEA, 07/25/19) Patient Home Medication List Home Medication List Reviewed: Yes Review of Systems Review of Systems Constitutional: see HPI EENTM: See HPI Respiratory: See HPI Cardiovascular: See HPI Gastrointestinal: See HPI Genitourinary: See HPI Musculoskeletal: no symptoms reported Skin: see HPI Psychiatric/Neurological: See HPI Endocrine: See HPI Hematologic/Lymphatic: See HPI All Other Systems Reviewed Negative Unless Noted: Yes Past Lpugbqy-Tmfdls-Etwhjd Hx Past Med/Social Hx: Reviewed Nursing Past Med/Soc Hx Patient Social History Alcohol Use: Denies Use Recreational Drug Use: No Smoking Status: Never a Smoker 2nd Hand Smoke Exposure: No Recent Foreign Travel: No Contact w/Someone Who Travel: No Recent Infectious Disease Expo: No Recent Hopitalizations: No Physical Abuse: No Sexual Abuse: No Mistreated: No Fear: No Seasonal Allergies Seasonal Allergies: No Past Medical History Surgeries: Yes (X11 ABDOMIAL, EYE) Respiratory: No Cardiac: Yes (BLOD CLOT, PERICARDITIS) Neurological: Yes (BRAIN STEM STROKE) Genitourinary: No Gastrointestinal: Yes Crohns Disease Musculoskeletal: No Endocrine: No HEENT: No Cancer: No Psychosocial: No Integumentary: No Blood Disorders: No Physical Exam Vital Signs Vital Signs - First Documented 12/29/19 13:50 Temp 36.9 Pulse 67 Resp 16 B/P (MAP) 151/73 (99) Pulse Ox 99 O2 Delivery Room Air Capillary Refill : Less Than 3 Seconds Height/Weight/BMI Height: '" Weight: lbs. oz. 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 II-XII nml as tested, no motor/sensory deficits, alert, oriented x 3 Skin: normal color Focused Exam Sepsis Stage: Ruled Out Progress/Results/Core Measures Results/Orders Lab Results Laboratory Tests Test 12/29/19 14:35 Range/Units White Blood Count 5.8 4.3-11.0 10^3/uL Red Blood Count 2.98 L 4.35-5.85 10^6/uL Hemoglobin 9.2 L 13.3-17.7 G/DL Hematocrit 28 L 40-54 % Mean Corpuscular Volume 95 80-99 FL Mean Corpuscular Hemoglobin 31 25-34 PG Mean Corpuscular Hemoglobin Concent 33 32-36 G/DL Red Cell Distribution Width 13.2 10.0-14.5 % Platelet Count 257 130-400 10^3/uL Mean Platelet Volume 9.8 7.4-10.4 FL Immature Granulocyte % (Auto) 0 % Neutrophils (%) (Auto) 77 H 42-75 % Lymphocytes (%) (Auto) 14 12-44 % Monocytes (%) (Auto) 7 0-12 % Eosinophils (%) (Auto) 3 0-10 % Basophils (%) (Auto) 0 0-10 % Neutrophils # (Auto) 4.5 1.8-7.8 X 10^3 Lymphocytes # (Auto) 0.8 L 1.0-4.0 X 10^3 Monocytes # (Auto) 0.4 0.0-1.0 X 10^3 Eosinophils # (Auto) 0.2 0.0-0.3 10^3/uL Basophils # (Auto) 0.0 0.0-0.1 10^3/uL Immature Granulocyte # (Auto) 0.0 0.0-0.1 10^3/uL Urine Color YELLOW Urine Clarity CLEAR Urine pH 5.5 5-9 Urine Specific [place] 1.025 H 1.016-1.022 Urine Protein 1+ H NEGATIVE Urine Glucose (UA) NEGATIVE NEGATIVE Urine Ketones NEGATIVE NEGATIVE Urine Nitrite NEGATIVE NEGATIVE Urine Bilirubin NEGATIVE NEGATIVE Urine Urobilinogen 0.2 < = 1.0 MG/DL Urine Leukocyte Esterase NEGATIVE NEGATIVE Urine RBC (Auto) 1+ H NEGATIVE Urine RBC 0-2 /HPF Urine WBC NONE /HPF Urine Squamous Epithelial Cells RARE /HPF Urine Crystals NONE /LPF Urine Bacteria NONE /HPF Urine Casts NONE /LPF Urine Mucus NEGATIVE /LPF Urine Culture Indicated NO Sodium Level 141 135-145 MMOL/L Potassium Level 5.2 H 3.6-5.0 MMOL/L Chloride Level 110 H 98-107 MMOL/L Carbon Dioxide Level 20 L 21-32 MMOL/L Anion Gap 11 5-14 MMOL/L Blood Urea Nitrogen 50 H 7-18 MG/DL Creatinine 3.04 H 0.60-1.30 MG/DL Estimat Glomerular Filtration Rate 21 BUN/Creatinine Ratio 16 Glucose Level 109 H 70-105 MG/DL Calcium Level 9.0 8.5-10.1 MG/DL Corrected Calcium 8.7 8.5-10.1 MG/DL Magnesium Level 1.3 L 1.6-2.4 MG/DL Total Bilirubin 0.4 0.1-1.0 MG/DL Aspartate Amino Transf (AST/SGOT) 11 5-34 U/L Alanine Aminotransferase (ALT/SGPT) 8 0-55 U/L Alkaline Phosphatase 110 40-136 U/L Troponin I < 0.30 <0.30 NG/ML Total Protein 7.1 6.4-8.2 GM/DL Albumin 4.4 3.2-4.5 GM/DL Lipase 64 8-78 U/L My Orders Orders - SREE TALAVERA DO Cbc With Automated Diff (12/29/19 13:51) Comprehensive Metabolic Panel (12/29/19 13:51) Lipase (12/29/19 13:51) Ua Culture If Indicated (12/29/19 13:51) Chest 1 View Ap/Pa Only (12/29/19 13:51) Ondansetron Injection (Zofran Injectio (12/29/19 14:00) Ns Iv 1000 Ml (Sodium Chloride 0.9%) (12/29/19 14:00) Magnesium (12/29/19 13:52) Thyroid Stimulating Hormone (12/29/19 13:52) Troponin I Fs (12/29/19 13:52) Ekg Tracing (12/29/19 13:52) Ct Abdomen/Pelvis Wo (12/29/19 15:04) Ns Iv 1000 Ml (Sodium Chloride 0.9%) (12/29/19 16:15) Ns Iv 1000 Ml (Sodium Chloride 0.9%) (12/29/19 16:15) Medications Given in ED Current Medications Medications Dose Ordered Sig/Ceasar Route Start Time Stop Time Status Last Admin Dose Admin Ondansetron HCl 4 mg ONCE ONCE IVP 12/29/19 14:00 12/29/19 14:01 DC 12/29/19 14:52 4 MG Vital Signs/I&O 12/29/19 13:50 Temp 36.9 Pulse 67 Resp 16 B/P (MAP) 151/73 (99) Pulse Ox 99 O2 Delivery Room Air Blood Pressure Mean: 99 Departure Communication (Admissions) Patient with vomiting and poor oral intake with findings of acute kidney injury and hyperkalemia. IV fluids given the ED. Vital signs stable we'll admit to the hospitalist service for further evaluation and treatment. Impression Primary Impression: Acute kidney injury Additional Impressions: Hyperkalemia Nausea vomiting and diarrhea Disposition: ADMITTED INPATIENT Condition: Stable Admissions Decision to Admit Reason: Admit from ER (General) Transfer Transfer Reason: Exceeds level of care Time Spoke to Accepting Phy: 16:[address] Bhakta Transfer Time: 16:29 Departure-Patient Inst. Referrals: SELFHERBERT MD (PCP/Family) Primary Care Physician SREE TALAVERA DO Dec 29, 2019 16:23
[2019-12-29] MEDS ORDERED: CATHETER FLUSH 10 ML SYR IV PRN (19:30)
[2019-12-29] MEDS ORDERED: ONDANSETRON 4 MG/2 ML (SDV) Z0FRAN IV PRN (19:30)
[2019-12-29] MEDS ORDERED: BISACODYL 10 MG SUPP (DULCOLAX) PR PRN (20:45)
[2019-12-29] MEDS ORDERED: CALCIUM CARBONATE 500 MG (TUMS) TAB.CHEW PO PRN (20:45)
[2019-12-29] MEDS ORDERED: DOCUSATE SODIUM 100 MG (COLACE) CAP PO PRN (20:45)
[2019-12-29] MEDS ORDERED: ALPRAZolam 0.25 MG (XANAX) TAB PO PRN (20:45)
[2019-12-29] MEDS ORDERED: HYDROcodone/APAP 5 MG/325 MG (LORTAB) TAB PO PRN (20:45)
[2019-12-29] MEDS ORDERED: MELATONIN 3 MG TABLET PO PRN (20:45)
[2019-12-29] MEDS ORDERED: diphenhydrAMINE 25 MG TAB (BENADRYL) PO PRN (20:45)
[2019-12-29] MEDS ORDERED: ENOXAPARIN 40 MG/0.4 ML (LOVENOX) SYR SC SCH (20:45)
[2019-12-29] MEDS ORDERED: ACETAMINOPHEN 500 MG TAB (TYLENOL) PO PRN (20:45)
--- NOTE | 2019-12-29 21:00 | NUR ---
ALERTED DR ROMERO TO PT C/O PAIN, WITH NO PAIN MEDICATION NOTED ON EMAR, SHE PUT IN ORDERS FOR PAIN MEDS. PT STATES HE TAKES 8MG OF HYDROMORPHONE HCL Q6HR PRN AT HOME FOR PAIN. I RECHECKED FOR CORRECT DOSING WITH PT WELL EXTERNAL MEDICATION REFILL LIST. PT STATES HIS PAIN FROM CHRON'S DX IS SEVERE AND THAT HIS DR HAS WORKED FOR A LONG TIME WITH HIM TO GET A CORRECT DOSING REGIMEN TO STAY ON TOP OF HIS CHRONIC PAIN.
[2019-12-29] MEDS: SENNA W/DOCUSATE (SENOKOT S) TABLET PO SCH (22:39)
[2019-12-29 23:50] VITALS: BP 123/58
[2019-12-30] VITALS (10 sets, daily range): BP systolic 118–154; BP diastolic 60–77
[2019-12-30] MEDS: fentaNYL INJECTION 100 MCG/2 ML AMP IVP PRN ×5 (01:48→21:46)
[2019-12-30] MEDS: ONDANSETRON 4 MG/2 ML (SDV) Z0FRAN IVP PRN ×4 (01:49→21:46)
--- NOTE | 2019-12-30 03:15 | NUR ---
PT NOTED TO BE CALLING OUT FOR HELP AT THIS TIME. PT WAS IN HIS BED CALLING OUT "HELP ME, HELP ME DADDY." THIS NURSE TRIED TO REORIENT PT. PT CONTINUED TO HOLLER OUT. THIS NURSE AROUSED THE PT BY GENTLY SHAKING PT SHOULDER, PT AWOKE AND STATED "I MUST HAVE BEEN HAVING A BAD DREAM." FENTANYL 50MCG HAD BEEN ADMINISTERED PRIOR TO THIS EVENT. WILL WATCH FOR ADVERSE SIDE EFFECTS OF MEDICATION AND PASS ONTO DAYSHIFT NURSE.
[2019-12-30] MEDS: NS IV 1000 ML 1,000 ML IV SCH ×2 (03:37→10:12)
[2019-12-30 03:54] LABS: BASOPHILS % (AUTO) 0 % (0-10); EOSINOPHILS # (AUTO) 0.1 10^3/uL (0.0-0.3); EOSINOPHILS % (AUTO) 2 % (0-10); HEMATOCRIT 23 % (40-54); HEMOGLOBIN 7.5 g/dL (13.3-17.7); LYMPHOCYTES # (AUTO) 0.7 10^3/uL (1.0-4.0); LYMPHOCYTES % (AUTO) 13 % (12-44); MEAN CORPUSCULAR HEMOGLOBIN 31 pg (25-34); MEAN CORPUSCULAR HGB CONC 32 g/dL (32-36); MEAN CORPUSCULAR VOLUME 98 fL (80-99); MEAN PLATELET VOLUME 10.2 fL (9.0-12.2); MONOCYTES # (AUTO) 0.5 10^3/uL (0.0-1.0); MONOCYTES % (AUTO) 9 % (0-12); NEUTROPHILS # (AUTO) 3.9 10^3/uL (1.8-7.8); NEUTROPHILS % (AUTO) 75 % (42-75); PLATELET COUNT 198 10^3/uL (130-400); WHITE BLOOD COUNT 5.1 10^3/uL (4.3-11.0)
[2019-12-30 04:10] LABS: ALBUMIN 3.5 GM/DL (3.2-4.5); CHLORIDE 117 MMOL/L (98-107); POTASSIUM 4.3 MMOL/L (3.6-5.0); SODIUM 143 MMOL/L (135-145)
[2019-12-30 04:12] LABS: CALCIUM 7.5 MG/DL (8.5-10.1)
[2019-12-30 04:13] LABS: GLUCOSE 130 MG/DL (70-105); TOTAL PROTEIN 5.6 GM/DL (6.4-8.2)
[2019-12-30 04:14] LABS: CARBON DIOXIDE 16 MMOL/L (21-32)
[2019-12-30 04:15] LABS: BILIRUBIN,TOTAL 0.4 MG/DL (0.1-1.0)
[2019-12-30 04:16] LABS: ALKALINE PHOSPHATASE 74 U/L (40-136)
[2019-12-30 04:17] LABS: BUN/CREATININE RATIO 16; CREATININE SERUM 2.46 MG/DL (0.60-1.30); GFR ESTIMATED 27
[2019-12-30 04:19] LABS: ALANINE AMINOTRANSFERASE < 6 U/L (0-55)
[2019-12-30] MEDS: SENNA W/DOCUSATE (SENOKOT S) TABLET PO SCH ×2 (09:00→20:47)
[2019-12-30] MEDS: HYDROmorphone (DILAUDID) 4 MG TAB PO PRN (09:10)
[2019-12-30] MEDS ORDERED: LISI-556 PO (10:07)
[2019-12-30] MEDS ORDERED: AZAT50TA16 PO (10:07)
[2019-12-30] MEDS ORDERED: PEG15DRO9 OU (10:07)
[2019-12-30] MEDS ORDERED: MULT-1136 PO (10:07)
[2019-12-30] MEDS ORDERED: VENL150C98 PO (10:07)
[2019-12-30] MEDS ORDERED: TERB250T16 PO (10:07)
[2019-12-30] MEDS ORDERED: METH10TA2 PO (10:07)
[2019-12-30] MEDS ORDERED: HYDR8TAB PO (10:07)
[2019-12-30] MEDS ORDERED: TEMA15CA PO (10:07)
[2019-12-30] MEDS ORDERED: CHOL378P PO (10:07)
[2019-12-30] MEDS ORDERED: SPIR50TA4 PO (10:07)
[2019-12-30] MEDS ORDERED: VENL75CA93 PO (10:07)
[2019-12-30] MEDS ORDERED: ACET325C7 PO (10:07)
[2019-12-30] MEDS ORDERED: LEVO25TA5 PO (10:07)
[2019-12-30] MEDS ORDERED: PREG75CA75 PO (10:07)
--- NOTE | 2019-12-30 10:13 | NUR ---
SPOKE WITH THE PT, WENT THRU THE EXT MED HISTORY, CALL[facility] AND GOT A MED LIST AND CALLED [facility] TO COMPLETE THE MED REC THE FOLLOWING ARE FILL DATES NOT SHOWN ON THE EXT MED HISTORY: 11-12-2019 VENLAFAXINE ER 75MG #90/90DS 12-10-2019 TEMAZEPAM 15MG #56/28DS 12-21-2019 CHOLESTYRAMINE 4GM # 1CAN 12-22-2019 TERBINAFINE 250MG #90/90DS 12-24-2019 LYRICA 75MG #90/30DS 12-24-2019 VENLAFAXINE [id number] #90/90DS THE FOLLOWING MEDS WERE FILLED AT [facility] AND THEY DO SHOW ON THE EXT MED HISTORY AND LOOK TO BE PAST DUE- HOWEVER [facility] FILLED THEM IN MAY FOR THEN JUNE FOR 90 DAY SUPPLIES EACH TIME: LISINOPRIL 5MG LEVOTHYROXINE 25MCG SPIRONOLACTONE 50MG ALL THE ABOVE WERE FILLED ON 05-19-2019 #90 AND THEN 06-22-2019 #90 OTC MEDS: MTV TYLENOL VISINE DRY EYE DROPS
[2019-12-30] MEDS ORDERED: NS IV 500 ML 500 ML IV SCH ×2 (11:03→11:15)
[2019-12-30] MEDS ORDERED: NS IV 1000 ML 1,000 ML IV SCH (11:03)
[2019-12-30] MEDS ORDERED: TEMAZEPAM 15 MG (RESTORIL) CAP PO PRN (11:15)
[2019-12-30] MEDS ORDERED: CHOLESTYRAMINE 4 GM (QUESTRAN LITE, PREVALITE) PKT PO PRN (11:30)
[2019-12-30] MEDS ORDERED: ACETAMINOPHEN 325 MG TABLET PO PRN (11:30)
[2019-12-30] MEDS ORDERED: ARTIFICAL TEARS 0.4 ML UNIT DOSE (REFRESH PLUS) OU PRN (11:30)
[2019-12-30] MEDS: IRON SUCROSE 200 MG/10 ML (VENOFER) VIAL IV SCH (12:35)
[2019-12-30] MEDS: PREGABALIN 75 MG (LYRICA) CAP PO SCH ×2 (12:36→20:48)
[2019-12-30] MEDS: METHADONE 10 MG (DOLOPHINE) TAB PO SCH ×3 (12:37→23:32)
--- NOTE | 2019-12-30 13:17 | History & Physical-Hospitalist ---
ALBINA MURRAY MED STUDENT 12/30/19 1317: History of Present Illness HPI/Chief Complaint Francisco Espinoza is a 64 year old white male who presented to the ED with nausea, vomiting, diarrhea, and worsening confusion. His stated he had become increasingly confused over night. He has a history of recurrent small dion obstructions and bowel resections as a result of crohns disease. He states that these symptoms he's experiencing currently are different from symptoms he's had with previous admissions for SBO. He reports having difficulty keeping liquids and solids down for several days. He reports that he's had worsening diarrhea over the course of the last 3 weeks and isn't sure if he's been passing blood in his stools. He has not tried any medications at home for the nausea, vomiting, or diarrhea. He also reports that he's been under extreme stress lately as one of his son's murdered somebody recently. Currently he complains of diffuse a bdominal pain with palpation and right lower quadrant pain with deep palpation. He rates his abdominal pain at a 8/10 currently and describes it as constant/achy. He denies fevers, chills, shaking, SOB, chest pain, blurry vision, and headaches. Source: patient, RN/MD Exam Limitations: no limitations Date Seen 12/30/19 Time Seen by a Provider: 08:30 Attending Physician Cami Romero DO PCP Ben Grace MD Referring Physician Date of Admission Dec 29, 2019 at 19:00 Home Medications & Allergies Home Medications Reviewed patient Home Medication Reconciliation performed by pharmacy medication reconciliations bicycle technician and/or nursing. Patients Allergies have been reviewed. Allergies Allergies Coded Allergies Penicillins (Verified Allergy, Severe, EDEMA, 07/25/19) adhesive tape (Verified Allergy, Severe, RASH, 07/25/19) cefazolin (Verified Allergy, Severe, RASH, 07/25/19) cephalexin (Verified Allergy, Severe, RASH, 07/25/19) morphine (Verified Allergy, Severe, EDEMA, takes Hydromorphone at home, 12/30/19) butabarbital (Verified Allergy, Unknown, 07/25/19) butorphanol (Verified Allergy, Unknown, 07/25/19) ibuprofen (Verified Allergy, Unknown, 07/25/19) piperacillin (Verified Allergy, Unknown, EDEMA, 07/25/19) promethazine (Verified Allergy, Unknown, 07/25/19) silicone (Verified Allergy, Unknown, 07/25/19) zolpidem (Verified Allergy, Unknown, 07/25/19) ofloxacin (Verified Adverse Reaction, Unknown, DIARRHEA, 07/25/19) Past Qhhjqnb-Wddssz-Hcibdr Hx Past Med/Social Hx: Reviewed Nursing Past Med/Soc Hx Patient Social History Marrital Status: Number of Children: 3 Number of living children: 3 Employed/Student: unemployed (Disability for 30 years plus) Alcohol Use: Denies Use Recreational Drug Use: No Smoking Status: Never a Smoker 2nd Hand Smoke Exposure: No Recent Foreign Travel: No Contact w/other who traveled: No Recent Hopitalizations: No Recent Infectious Disease Expo: No Immunizations Up To Date Date of Influenza Vaccine: Nov 13, 2018 Seasonal Allergies Seasonal Allergies: No Past Medical History Surgeries: Appendectomy, Bowel Surgery, Eye Surgery, Gallbladder Respiratory: Pulmonary Embolism Currently Using CPAP: No Currently Using BIPAP: No Neurological: Stroke (brainstem CVA 2 years ago) Gastrointestinal: Crohns Disease, Obstructive Bowel Endocrine: Hypothyroidsim HEENT: Cataract Loss of Vision: Denies Hearing Impairment: Denies History of Blood Disorders: No Family History Asthma (DAD) Review of Systems Constitutional: no symptoms reported; No chills, No diaphoresis, No fever EENTM: no symptoms reported; No hearing loss, No blurred vision, No double vision Respiratory: no symptoms reported; No cough, No dyspnea on exertion, No hemoptysis, No short of breath Cardiovascular: no symptoms reported; No chest pain, No edema, No palpitations Gastrointestinal: RLQ, see HPI, abdominal pain, diarrhea; No hematemesis; nausea, vomiting Genitourinary: no symptoms reported; No decreased output, No discharge, No dysuria, No frequency Musculoskeletal: no symptoms reported; No back pain, No joint pain Skin: no symptoms reported; No pruritus, No rash Psychiatric/Neurological: No Symptoms Reported; Denies Depressed, Denies Headache, Denies Numbness; Pre-Existing Deficit (loss of pain and temp sensatio right side body s/p stroke) All Other Systems Reviewed Negative Unless Noted: Yes Physical Exam Physical Exam Vital Signs Vital Signs - First Documented 12/29/19 13:50 Temp 36.9 Pulse 67 Resp 16 B/P (MAP) 151/73 (99) Pulse Ox 99 O2 Delivery Room Air Capillary Refill : Less Than 3 Seconds Height, Weight, BMI Height: '" Weight: lbs. oz. kg; 27.50 BMI Method: General Appearance: No Apparent Distress, WD/WN Eyes: Bilateral Eye EOMI HEENT: PERRL/EOMI, Pharynx Normal Neck: Full Range of Motion, Non Tender Respiratory: Chest Non Tender, Lungs Clear, Normal Breath Sounds, No Accessory Muscle Use Cardiovascular: Regular Rate, Rhythm, Normal Peripheral Pulses Gastrointestinal: Normal Bowel Sounds, Soft; No Guarding, No Rebound; Tenderness (diffusely tender to palpation. RLQ worse with deep palpation) Rectal: Deferred Back: Normal Inspection, No Vertebral Tenderness Extremity: Normal Capillary Refill, Non Tender, No Calf Tenderness Neurologic/Psychiatric: Alert, Oriented x3, No Motor/Sensory Deficits, Normal Mood/Affect Skin: Normal Color, Warm/Dry Lymphatic: No Adenopathy Results Results/Procedures Labs Laboratory Tests 12/29/19 14:35 12/30/19 03:40 Patient resulted labs reviewed. Assessment/Plan Admission Diagnosis Nausea, vomiting, diarrhea Acute kidney injury hyperkalemia Admission Status: Inpatient Order (span 2 midnights) Reason for Inpatient Admission: Pt. requiring Intravenouus fluids, antiemetics, pain meds, and fluid and electrolyte imbalance Assessment and Plan Nausea Vomiting Diarrhea OUSMANE Hyperkalemia-resolved Anemia Crohn's disease H/O SBO's S/P bowel resections Hypothyroidism 1. Normal saline at 100ml/hr 2. Continue home meds 3. General surgery consult- drop in H an H 4. Antiemetics for nausea/vomiting 5. lovenox dvt prophylaxis 6. Iron sucrose IV 7. Transfuse 1 unit PRBC for Hgb of 7.5 Clinical Quality Measures DVT/VTE Risk/Contraindication: Risk Factor Score Per Nursin RFS Level Per Nursing on Admit: 4+=Very High CAMI ROMERO DO 12/31/19 0606: History of Present Illness HPI/Chief Complaint CC: Abdominal pain with acute renal failure HPI: This is a 64yoWM history of chronic abdominal pain with Crohns takes Dilaudid 8mg TID for pain who presents to the hospital with acute renal failure with creatinine of 3.04, Hgb 9.0 and abdominal pain with nausea and vomiting. CT scan did not show any evidence of any type of small bowel obstruction but he has had multiple resection in the past and bowel obstruction. Dr. Stuart has been consulted, he feels like he is in a Crohns flare, will initiate some steroids and Hgb dropped to 7.5 with IV fluids with Creatinine of 2.46 improved so I will give him one unit of blood. Overall he feels about the same but he is producing urine. Past Mpoeitf-Ihnigl-Zorlpz Hx Past Med/Social Hx: Reviewed Nursing Past Med/Soc Hx, Reviewed and Corrections made Review of Systems Constitutional: see HPI Physical Exam Physical Exam General Appearance: No Apparent Distress, Chronically ill Respiratory: Lungs Clear Cardiovascular: Regular Rate, Rhythm Neurologic/Psychiatric: Alert, Oriented x3, No Motor/Sensory Deficits, Normal Mood/Affect Assessment/Plan Admission Diagnosis Assessment: ARF Anemia Crohn's flare PLan: Transfuse IVF Monitor output Admission Status: Inpatient Order (span 2 midnights) Reason for Inpatient Admission: severe anemia with arf Diagnosis/Problems Diagnosis/Problems (1) Acute kidney injury Status: Acute (2) Nausea vomiting and diarrhea Status: Acute (3) Hyperkalemia Status: Acute Supervisory-Addendum Brief Verification & Attestation Participated in pt care: history, MDM, physical Personally performed: exam, history, MDM, supervision of care Care discussed with: Medical Student Procedures: n/a Results interpretation: Verified all documentation Verification and Attestation of Medical Student E/M Service A medical student performed and documented this service in my presence. I reviewed and verified all information documented by the medical student and made modifications to such information, when appropriate. I personally performed the physical exam and medical decision making. Cami Romero, Dec 31, 2019,06:03 ALBINA MURRAY MED STUDENT Dec 30, 2019 13:17 CAMI ROMERO DO Dec 31, 2019 06:06
--- NOTE | 2019-12-30 20:10 | Consultation - Surgery ---
History of Present Illness History of Present Illness Patient Consulted On(wily/time) 12/30/19 11:04 Date Seen by Provider: Dec 30, 2019 Time Seen by Provider: 11:04 History of Present Illness Consult is requested by Dr. 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 Patient states he usually is on Humira. Patient has flar eups from time to time which consist of abdominal pain and diarrhea he states. Patient states for about the last 3 weeks he has been having diarrhea multiple bowel movements per day. He does not believe there is any blood in his stools but not sure. He states he has a cramping pain in the lower abdomen but also all over the abdomen that he rates at 8 out of 10. Nothing really seems to make it better. Nothing really seems to make it worse that he knows of. Patient also with nausea and vomiting. He could tell he was getting dehydrated between the nausea vomiting diarrhea he states. Due to his continued and worsening symptoms patient went to the emergency department for evaluation. Patient feeling fatigued and weak. Currently he states he is feeling a little bit better. He had a CT scan which was mostly consistent with constipation. Allergies and Home Medications Allergies Coded Allergies: Penicillins (Verified Allergy, Severe, EDEMA, 07/25/19) adhesive tape (Verified Allergy, Severe, RASH, 07/25/19) cefazolin (Verified Allergy, Severe, RASH, 07/25/19) cephalexin (Verified Allergy, Severe, RASH, 07/25/19) morphine (Verified Allergy, Severe, EDEMA, takes Hydromorphone at home, 12/30/19) butabarbital (Verified Allergy, Unknown, 07/25/19) butorphanol (Verified Allergy, Unknown, 07/25/19) ibuprofen (Verified Allergy, Unknown, 07/25/19) piperacillin (Verified Allergy, Unknown, EDEMA, 07/25/19) promethazine (Verified Allergy, Unknown, 07/25/19) silicone (Verified Allergy, Unknown, 07/25/19) zolpidem (Verified Allergy, Unknown, 07/25/19) ofloxacin (Verified Adverse Reaction, Unknown, DIARRHEA, 07/25/19) Home Medications Acetaminophen 325 Mg Capsule, 650 MG PO Q8H PRN for PAIN-MILD (1-4), (Reported) Azathioprine 50 Mg Tablet, 50 MG PO DAILY, (Reported) Cholestyramine (with Sugar) 378 Gm Powder, 4 GM PO BID PRN for DIARRHEA, (Reported) Hydromorphone HCl 8 Mg Tablet, 8 MG PO Q6H PRN for PAIN-SEVERE (8-10), (Reported) Levothyroxine Sodium 25 Mcg Tablet, 25 MCG PO DAILY, (Reported) Lisinopril 5 Mg Tablet, 5 MG PO DAILY, (Reported) Methadone HCl 10 Mg Tablet, 10 MG PO Q6- 8H, (Reported) Multivitamin 1 Each Tablet, 1 EACH PO DAILY, (Reported) Peg 400/Hypromellose/Glycerin 15 Ml Drops, 2 DROPS OU PRN PRN for DRY EYES, (Reported) Pregabalin 75 Mg Capsule, 75 MG PO TID, (Reported) Spironolactone 50 Mg Tablet, 50 MG PO DAILY, (Reported) Temazepam 15 Mg Capsule, 15-30 MG PO HS PRN for SLEEP, (Reported) Terbinafine HCl 250 Mg Tablet, 250 MG PO DAILY, (Reported) Venlafaxine HCl 75 Mg Cap.er.24h, 75 MG PO DAILY, (Reported) TAKES 75MG +150MG TO EQUAL 225MG DAILY Venlafaxine HCl 150 Mg Cap.er.24h, 150 MG PO DAILY, (Reported) TAKES 75MG +150MG TO EQUAL 225MG DAILY Patient Home Medication List Home Medication List Reviewed: Yes Past Tprrgqd-Tgrccx-Wjdvpc Hx Patient Social History Alcohol Use: Denies Use Recreational Drug Use: No Smoking Status: Never a Smoker 2nd Hand Smoke Exposure: No Recent Foreign Travel: No Contact w/Someone Who Travel: No Recent Infectious Disease Expo: No Recent Hopitalizations: No Immunizations Up To Date Date of Influenza Vaccine: Nov 13, 2018 Seasonal Allergies Seasonal Allergies: No Surgeries History of Surgeries: Yes (X11 ABDOMIAL, EYE) Surgeries: Appendectomy, Bowel Surgery, Eye Surgery, Gallbladder Respiratory History of Respiratory Disorde: No Cardiovascular History of Cardiac Disorders: Yes (BLOD CLOT, PERICARDITIS) Neurological History of Neurological Disord: Yes (BRAIN STEM STROKE) Neurological Disorders: Stroke (brainstem CVA 2 years ago) Genitourinary History of Genitourinary Disor: No Gastrointestinal History of Gastrointestinal Di: Yes Gastrointestinal Disorders: Crohns Disease, Obstructive Bowel Musculoskeletal History of Musculoskeletal Dis: No Endocrine History of Endocrine Disorders: No Endocrine Disorders: Hypothyroidsim HEENT History of HEENT Disorders: No HEENT Disorders: Cataract Loss of Vision: Denies Hearing Impairment: Denies Cancer History of Cancer: No Psychosocial History of Psychiatric Problem: No Integumentary History of Skin or Integumenta: No Blood Transfusions History of Blood Disorders: No Reviewed Nursing Assessment Reviewed/Agree w Nursing PMH: Yes Family Medical History Significant Family History: Asthma (DAD) Review of Systems-General Constitutional: No fever; weakness EENTM: No hearing loss, No ear pain Respiratory: No cough, No dyspnea on exertion Cardiovascular: No chest pain, No edema Gastrointestinal: abdominal pain (Diffuse) Genitourinary: No decreased output, No discharge Musculoskeletal: No back pain, No joint pain Skin: No change in color, No change in hair/nails Psychiatric/Neurological: Denies Anxiety, Denies Depressed, Denies Emotional Problems All Other Systems Reviewed Negative Unless Noted: Yes (Negative excepted noted.) Physical Exam-General Problems Physical Exam Vital Signs Vital Signs - First Documented 12/29/19 13:50 Temp 36.9 Pulse 67 Resp 16 B/P (MAP) 151/73 (99) Pulse Ox 99 O2 Delivery Room Air Capillary Refill : Less Than 3 Seconds General Appearance: WD/WN, no apparent distress HEENT: PERRL/EOMI, normal ENT inspection Neck: non-tender, supple Respiratory: chest non-tender, no respiratory distress, no accessory muscle use Cardiovascular: regular rate, rhythm, no edema, no JVD Gastrointestinal: soft; No guarding, No rebound; tenderness (Minimal discomfort with palpation which is diffuse) Rectal: deferred Back: no CVA tenderness, no vertebral tenderness Extremities: normal range of motion, non-tender, normal inspection Neurologic/Psychiatric: frame and scrap crusher II-XII nml as tested, no motor/sensory deficits, alert, normal mood/affect, oriented x 3 Skin: normal color, warm/dry Lymphatic: no adenopathy Data Review Labs Laboratory Tests 12/30/19 03:40: White Blood Count 5.1, Red Blood Count 2.40L, Hemoglobin 7.5L, Hematocrit 23L, Mean Corpuscular Volume 98, Mean Corpuscular Hemoglobin 31, Mean Corpuscular Hemoglobin Concent 32, Red Cell Distribution Width 12.9, Platelet Count 198, Mean Platelet Volume 10.2, Immature Granulocyte % (Auto) 0, Neutrophils (%) (Auto) 75, Lymphocytes (%) (Auto) 13, Monocytes (%) (Auto) 9, Eosinophils (%) (Auto) 2, Basophils (%) (Auto) 0, Neutrophils # (Auto) 3.9, Lymphocytes # (Auto) 0.7L, Monocytes # (Auto) 0.5, Eosinophils # (Auto) 0.1, Basophils # (Auto) 0.0, Immature Granulocyte # (Auto) 0.0, Sodium Level 143, Potassium Level 4.3, Chloride Level 117H, Carbon Dioxide Level 16L, Anion Gap 10, Blood Urea Nitrogen 39H, Creatinine 2.46H, Estimat Glomerular Filtration Rate 27, BUN/Creatinine Ratio 16, Glucose Level 130H, Calcium Level 7.5L, Corrected Calcium 7.9L, Total Bilirubin 0.4, Aspartate Amino Transf (AST/SGOT) 10, Alanine Aminotransferase (ALT/SGPT) < 6, Alkaline Phosphatase 74, Total Protein 5.6L, Albumin 3.5 Assessment/Plan Assessment/Plan Assessment/Plan Nausea/Vomiting/Diarrhea OUSMANE Hyperkalemia Anemia Crohn's disease H/O SBO's S/P bowel resections Follow hemoglobin transfuse as needed We will continue fluid resuscitation. Crohn's is symptoms do not resolve he states similar episodes of flareups of Crohn's like this, will consider starting steroids if symptoms do not improve Symptomatic control No surgical intervention at this time Clinical Quality Measures DVT/VTE Risk/Contraindication: Risk Factor Score Per Nursin RFS Level Per Nursing on Admit: 4+=Very High DOLLY FORD DO Dec 30, 2019 20:10
[2019-12-31] MEDS: fentaNYL INJECTION 100 MCG/2 ML AMP IVP PRN (02:52)
[2019-12-31 04:06] VITALS: BP 128/74
[2019-12-31 05:54] LABS: BASOPHILS % (AUTO) 0 % (0-10); EOSINOPHILS # (AUTO) 0.2 10^3/uL (0.0-0.3); EOSINOPHILS % (AUTO) 3 % (0-10); HEMATOCRIT 26 % (40-54); HEMOGLOBIN 8.4 g/dL (13.3-17.7); LYMPHOCYTES # (AUTO) 1.1 10^3/uL (1.0-4.0); LYMPHOCYTES % (AUTO) 19 % (12-44); MEAN CORPUSCULAR HEMOGLOBIN 31 pg (25-34); MEAN CORPUSCULAR HGB CONC 33 g/dL (32-36); MEAN CORPUSCULAR VOLUME 95 fL (80-99); MEAN PLATELET VOLUME 10.1 fL (9.0-12.2); MONOCYTES # (AUTO) 0.6 10^3/uL (0.0-1.0); MONOCYTES % (AUTO) 10 % (0-12); NEUTROPHILS # (AUTO) 3.9 10^3/uL (1.8-7.8); NEUTROPHILS % (AUTO) 67 % (42-75); PLATELET COUNT 189 10^3/uL (130-400); WHITE BLOOD COUNT 5.9 10^3/uL (4.3-11.0)
[2019-12-31 06:14] LABS: ALBUMIN 3.6 GM/DL (3.2-4.5); BILIRUBIN,TOTAL 0.6 MG/DL (0.1-1.0); CALCIUM 7.9 MG/DL (8.5-10.1); CREATININE SERUM 2.45 MG/DL (0.60-1.30); POTASSIUM 4.4 MMOL/L (3.6-5.0); TOTAL PROTEIN 5.7 GM/DL (6.4-8.2)
[2019-12-31] MEDS: LEVOTHYROXINE 25 MCG (LEVOTHROID) TAB PO SCH (06:20)
[2019-12-31] MEDS: MULTIVIT W/MINERALS TAB (THERAGRAN M) PO SCH (06:21)
[2019-12-31] MEDS: METHADONE 10 MG (DOLOPHINE) TAB PO SCH ×3 (06:21→18:07)
[2019-12-31 08:00] VITALS: BP 115/57
--- NOTE | 2019-12-31 08:33 | NUR ---
SCHEDULED HEP 5000 Q8H PLACED ON HOLD AT THIS TIME PER DR ROMERO. AWAITING OB STOOL COLLECTION FROM PATIENT. PATIENT EDUCATED ON SAMPLE NEED AND PURPOSE. VERBALIZED UNDERSTANDING. DENIES NEEDS OR C/O AT THIS TIME. STATES HE FEELS 'MUCH STRONGER' TODAY AFTER RECEIVING BLOOD TRANSFUSION YESTERDAY. CONT TO MONITOR.
[2019-12-31] MEDS ORDERED: NON-FORMULARY MEDICATION 1 EA EA (Venlafaxine HCl (Venlafaxine HCl ER) 150 MG) PO SCH (09:00)
[2019-12-31] MEDS: PREGABALIN 75 MG (LYRICA) CAP PO SCH ×3 (09:19→21:15)
[2019-12-31] MEDS: azaTHIOprine (IMURAN) 50 MG TAB PO SCH (09:19)
[2019-12-31] MEDS: VENlafaxine XR 75 MG (EFFEXOR XR) CAP PO SCH (09:19)
--- NOTE | 2019-12-31 09:22 | NUR ---
ZOFRAN FOR C/O NAUSEA. PATIENT REPORTS NOT HAD NAUSEA SINCE LAST NIGHT. REFUSED STOOL SOFTENERS AT THIS TIME. HYDROCODONE GIVEN FOR C/O PAIN 5/10 IN ABDOMINAL REGION; NOTHING NEW, CHRONIC PAIN PATIENT REPORTED. CONT TO MONITOR.
[2019-12-31] MEDS: SENNA W/DOCUSATE (SENOKOT S) TABLET PO SCH ×2 (09:27→21:16)
--- NOTE | 2019-12-31 10:00 | NUR ---
ZOFRAN EFFECTIVE. PATIENT HAD MODERATE BROWN, FORMED STOOL. SAMPLE SENT TO LAB. DENIES NEEDS OR C/O
[2019-12-31] MEDS: LACTATED RINGERS 1,000 ML IV SCH ×2 (11:20→21:38)
[2019-12-31] MEDS: TERBINAFINE 250 MG (LamISIL) TABLET PO SCH (11:21)
--- NOTE | 2019-12-31 11:33 | Progress Note - Hospitalist ---
ALBINA MURRAY MED STUDENT 12/31/19 1133: Subjective HPI/CC On Admission Date Seen by Provider: Dec 31, 2019 Time Seen by Provider: 08:45 CC: Abdominal pain with acute renal failure HPI: This is a 64yoWM history of chronic abdominal pain with Crohns takes Dilaudid 8mg TID for pain who presents to the hospital with acute renal failure with creatinine of 3.04, Hgb 9.0 and abdominal pain with nausea and vomiting. CT scan did not show any evidence of any type of small bowel obstruction but he has had multiple resection in the past and bowel obstruction. Dr. Stuart has been consulted, he feels like he is in a Crohns flare, will initiate some steroids and Hgb dropped to 7.5 with IV fluids with Creatinine of 2.46 improved so I will give him one unit of blood. Overall he feels about the same but he is producing urine. Subjective/Events-last exam Patient reports feeling quite improved today. He's denying any abdominal pain or right leg pain. States the pain meds are working "wonders". He denies having any more episodes of diarrhea and that his last BM was yesterday morning. Tolerating po intake well without vomiting, some mild nausea reported though. Review of Systems General: No Chills, No Night Sweats; Fatigue HEENT: No Head Aches, No Visual Changes Pulmonary: No Dyspnea, No Cough Cardiovascular: No: Chest Pain, Palpitations, Orthopnea Gastrointestinal: Nausea; No: Vomiting, Abdominal Pain, Diarrhea Genitourinary: No Dysuria, No Frequency Musculoskeletal: No: neck pain, back pain Neurological: No: Weakness, Numbness Objective Exam Vital Signs Vital Signs Date Time Temp Pulse Resp B/P (MAP) Pulse Ox O2 Delivery O2 Flow Rate FiO2 12/31/19 08:00 36.7 59 16 115/57 (76) 95 Room Air Capillary Refill : Less Than 3 Seconds General Appearance: No Apparent Distress, WD/WN HEENT: PERRL/EOMI, Pharynx Normal Neck: Full Range of Motion, Normal Inspection, Non Tender Respiratory: Chest Non Tender, Lungs Clear, No Accessory Muscle Use, No Respiratory Distress, Decreased Breath Sounds Cardiovascular: Regular Rate, Rhythm, Normal Peripheral Pulses Gastrointestinal: Normal Bowel Sounds, Non Tender, Soft; No Distended, No Guarding, No Rebound, No Tenderness Rectal: Deferred Back: Normal Inspection, No Vertebral Tenderness; No Muscle Spasm Extremity: Normal Capillary Refill, Non Tender, No Calf Tenderness, No Pedal Edema Neurologic/Psychiatric: Alert, Oriented x3, No Motor/Sensory Deficits, Normal Mood/Affect Skin: Normal Color, Warm/Dry Lymphatic: No Adenopathy Results/Procedures Lab Laboratory Tests 12/31/19 05:45 Patient resulted labs reviewed. Assessment/Plan Assessment and Plan Assess & Plan/Chief Complaint Nausea- continues but improved Vomiting- resolved Diarrhea- resolved OUSMANE Hyperkalemia-resolved Anemia Crohn's disease H/O SBO's S/P bowel resections Hypothyroidism 1. Lactated ringers at 100ml/hr 2. Continue home meds 3. Order renal ultrasound today- for acute renal failure 4. Antiemetics for nausea/vomiting 5. Iron sucrose IV 6. Follow hemoglobin and hematocrit 7. General surgery following 8. Plan for discharge tomorrow possibly with close followup appt to trend creatinine. Clinical Quality Measures DVT/VTE Risk/Contraindication: Risk Factor Score Per Nursin RFS Level Per Nursing on Admit: 4+=Very High CAMI ROMERO DO 01/01/20 0456: Subjective Subjective/Events-last exam Pt feels pretty good Urinary output is good Will restart IV fluids because creatinine is 2.4 and back in August it was 0.97 Renal ultrasound will also be obtained Holding Heparin due to severe anemia No abdominal pain Appetite is increased Hgb 8.4 after one unit of blood Getting IV iron infusion Review of Systems General: Fatigue Objective Exam General Appearance: No Apparent Distress, WD/WN, Chronically ill Respiratory: Lungs Clear Cardiovascular: Regular Rate, Rhythm Assessment/Plan Assessment and Plan Assess & Plan/Chief Complaint CHeck renal USG Monitor creat Supervisory-Addendum Brief Verification & Attestation Participated in pt care: history, MDM, physical Personally performed: exam, history, MDM, supervision of care Care discussed with: Medical Student Procedures: n/a Results interpretation: Verified all documentation Verification and Attestation of Medical Student E/M Service A medical student performed and documented this service in my presence. I reviewed and verified all information documented by the medical student and made modifications to such information, when appropriate. I personally performed the physical exam and medical decision making. Cami Romero Jan 01, 2020,04:54 ALBINA MURRAY MED STUDENT Dec 31, 2019 11:33 CAMI ROMERO DO Jan 01, 2020 04:56
[2019-12-31 12:00] VITALS: BP 130/58
--- NOTE | 2019-12-31 12:52 | NUR ---
DR FORD NOTIFIED OF HEMOCCULT STOOL. GI PROPHYLAXIS MEDICATION ORDERED AT THIS TIME. PATIENT EDUCATED. DENIES NEEDS OR C/O . CONT TO MONITOR.
[2019-12-31] MEDS ORDERED: FAMOTIDINE 20 MG (PEPCID) TABLET ONE (13:02)
--- NOTE | 2019-12-31 13:25 | NUR ---
DESPITE EDUCATION ON MEDICATION AND PHYSICIAN ORDER, PATIENT REFUSED PEPCID. DR FORD NOTIFIED.
--- NOTE | 2019-12-31 14:29 | NUR ---
RD ASSESSMENT PMHx: PE; stroke; Crohn's disease; obstructive bowel; hx of bowel resections; PT INTERACTION: Pt was awake and pleasant during nutrition assessment. Note pt has AMS, per chart review. Pt states current appetite is "better this morning." Note avg PO intake 100% x1d, per chart review. Pt states following a low-fiber diet at home, and has no issues with chewing/swallowing food. Note pt has dentures, but is not wearing them. Pt states recent issues with nausea, vomiting, and diarrhea. Note last BM was 12/29, and pt currently on bowel regimen of senna BID, per chart review. Pt states recent wt fluctuations "about 10# up and down." Note recent 11# wt loss x5mon, per chart review. ABNORMAL NUTRITION-RELATED LAB VALUES LOW: Ca 7.9; Pro 5.7; HIGH: Cl 115; BUN 37; cr 2.45; Est. kcal needs: 3421-9685 kcal | 20-25 kcal/kg Est. Pro needs: 78-97 g Pro | 0.8-1.0 g Pro/kg PES STATEMENT: Given current PO intake, no nutrition diagnosis at this time (NO-1.1). INTERVENTION: Continue with current diet order of Regular diet. Offered to alter diet consistency as pt does not have dentures in, but pt declined at this time. DC current supplementation order of Ensure Enlive with meals TID. Pt is currently consuming >75% meals. Will continue to follow and reassess as pt needs, intake, and status change. Price Mistry, MS RD LD
--- NOTE | 2019-12-31 14:53 | Progress Note - Surgery ---
LAVELLE ACOSTA MED STUDENT 12/31/19 1453: Subjective Date Seen by a Provider: Dec 31, 2019 Time Seen by a Provider: 07:00 Subjective/Events-last exam Pt states his pain is improved and has not had diarrhea since yesterday morning. Hemoglobin is 8.4 today from 7.5. Transfused 1 unit yesterday. Objective Exam Vital Signs Date Time Temp Pulse Resp B/P (MAP) Pulse Ox O2 Delivery O2 Flow Rate FiO2 12/31/19 12:00 36.4 70 16 130/58 (82) 96 Room Air 12/31/19 08:00 36.7 59 16 115/57 (76) 95 Room Air 12/31/19 07:56 Room Air 12/31/19 04:06 36.2 74 21 128/74 (92) 100 Room Air 12/30/19 23:46 36.8 70 20 145/73 (97) 100 Room Air 12/30/19 20:40 36.1 63 18 148/77 98 Room Air 12/30/19 20:40 36.1 63 18 148/77 (100) 98 Room Air 12/30/19 20:10 Room Air 12/30/19 18:43 36.1 75 20 154/74 98 Room Air 12/30/19 18:20 36.6 80 20 152/70 100 Room Air 12/30/19 18:13 36.6 80 20 152/70 (97) 100 Room Air 12/30/19 15:52 36.4 77 20 132/60 (84) 97 Room Air I & O 12/31/19 07:00 Intake Total 3305 ml Output Total 2750 ml Balance 555 ml Capillary Refill : Less Than 3 Seconds General Appearance: No Apparent Distress, WD/WN HEENT: PERRL/EOMI, Normal ENT Inspection Neck: Normal Inspection, Non Tender Respiratory: Chest Non Tender, No Accessory Muscle Use, No Respiratory Distress Cardiovascular: Regular Rate, Rhythm, No Edema Gastrointestinal: non tender, soft; No guarding, No rebound Extremity: Non Tender, No Calf Tenderness, No Pedal Edema Neurologic/Psychiatric: Alert, Oriented x3, No Motor/Sensory Deficits, Normal Mood/Affect Skin: Warm/Dry, Pallor Lymphatic: No Adenopathy Results Lab Laboratory Tests 12/31/19 05:45: White Blood Count 5.9, Red Blood Count 2.71L, Hemoglobin 8.4L, Hematocrit 26L, Mean Corpuscular Volume 95, Mean Corpuscular Hemoglobin 31, Mean Corpuscular Hemoglobin Concent 33, Red Cell Distribution Width 13.6, Platelet Count 189, Mean Platelet Volume 10.1, Immature Granulocyte % (Auto) 1, Neutrophils (%) (Auto) 67, Lymphocytes (%) (Auto) 19, Monocytes (%) (Auto) 10, Eosinophils (%) (Auto) 3, Basophils (%) (Auto) 0, Neutrophils # (Auto) 3.9, Lymphocytes # (Auto) 1.1, Monocytes # (Auto) 0.6, Eosinophils # (Auto) 0.2, Basophils # (Auto) 0.0, Immature Granulocyte # (Auto) 0.0, Sodium Level 143, Potassium Level 4.4, Chloride Level 115H, Carbon Dioxide Level 18L, Anion Gap 10, Blood Urea Nitrogen 37H, Creatinine 2.45H, Estimat Glomerular Filtration Rate 27, BUN/Creatinine Ratio 15, Glucose Level 90, Calcium Level 7.9L, Corrected Calcium 8.2L, Total Bilirubin 0.6, Aspartate Amino Transf (AST/SGOT) 10, Alanine Aminotransferase (ALT/SGPT) 8, Alkaline Phosphatase 78, Total Protein 5.7L, Albumin 3.6 12/31/19 10:16: Stool Occult Blood Immunoassay POSITIVEH 12/31/19 13:16: Lab Scanned Report Transfusion Reaction Form Assessment/Plan Assessment/Plan Assessment/Plan Nausea/Vomiting/Diarrhea OUSMANE Hyperkalemia-improved Anemia Crohn's disease H/O SBO's S/P bowel resections Follow hemoglobin transfuse as needed We will continue fluid resuscitation. Pt states similar episodes of flareups of Crohn's like this, will consider starting steroids if symptoms do not improve Symptomatic control No surgical intervention at this time Clinical Quality Measures DVT/VTE Risk/Contraindication: Risk Factor Score Per Nursin RFS Level Per Nursing on Admit: 4+=Very High DOLLY STUART DO 12/31/192209: Subjective Subjective/Events-last exam Feeling better today. No diarrhea. Minimal nausea appearing feeling stronger after receiving 1 unit of packed red blood cells yesterday. Abdominal pain has improved. No new complaints. Denies fever sweats chills shortness of breath or chest pain. Objective Exam General Appearance: No Apparent Distress, WD/WN HEENT: PERRL/EOMI, Normal ENT Inspection Neck: Normal Inspection, Non Tender Respiratory: Chest Non Tender, No Accessory Muscle Use, No Respiratory Distress Cardiovascular: Regular Rate, Rhythm, No Edema Gastrointestinal: non tender, soft; No guarding, No rebound Extremity: Non Tender, No Calf Tenderness Neurologic/Psychiatric: Alert, Oriented x3, No Motor/Sensory Deficits, Normal Mood/Affect Skin: Warm/Dry, Pallor Lymphatic: No Adenopathy Assessment/Plan Assessment/Plan Assessment/Plan Nausea/Vomiting/Diarrhea OUSMANE Hyperkalemia-improved Anemia Crohn's disease H/O SBO's S/P bowel resections Follow hemoglobin transfuse as needed, feeling better after 1 unit PRBC We will continue fluid resuscitation due to acute kidney injury Pt states similar episodes of flareups of Crohn's like this, will consider starting steroids if symptoms do not improve Symptomatic control No surgical intervention at this time Supervisory-Addendum Brief Verification & Attestation Participated in pt care: history, MDM, physical Personally performed: exam, history, MDM, supervision of care Care discussed with: Medical Student Procedures: n/a Results interpretation: Verified all documentation Verification and Attestation of Medical Student E/M Service A medical student performed and documented this service in my presence. I reviewed and verified all information documented by the medical student and made modifications to such information, when appropriate. I personally performed the physical exam and medical decision making. Dolly Stuart, Dec 31, 2019,22:10 LAVELLE ACOSTA MED STUDENT Dec 31, 2019 14:53 DOLLY STUART DO Dec 31, 2019 22:10
--- NOTE | 2019-12-31 15:04 | Diagnostic Imaging Report ---
PROCEDURE: US Renal Bilateral. TECHNIQUE: Multiple real-time grayscale images were obtained over the kidneys in various projections bilaterally. INDICATION: Renal failure. Right kidney measures 13.4 x 5.4 x 5.4 cm and the left kidney measures 11.9 x 5.2 x 6.3 cm. Cortical thickness and echogenicity is normal. No calculi are seen. There is no hydronephrosis. Prevoid bladder volume is 224 mL. Postvoid volume is 4 mL. The right ureteral jet was not visualized. Left ureteral jet is visualized. IMPRESSION: Unremarkable renal and bladder ultrasound. Dictated by: Dictated on workstation # [id number]
[2019-12-31 15:38] VITALS: BP 132/70
[2019-12-31 19:26] VITALS: BP 152/73
[2019-12-31] MEDS ORDERED: FAMOTIDINE 20 MG (PEPCID) TABLET PO SCH ×2 (21:00)
[2019-12-31] MEDS: ONDANSETRON 4 MG/2 ML (SDV) Z0FRAN IVP PRN (21:15)
--- NOTE | 2019-12-31 21:16 | NUR ---
NOTING PATIENTS REFUSAL OF PEPCID, THIS NURSE EXPLAINED TO PT THE REASONING FOR TAKING PEPCID MEDICATION, PT AWARE OF OCCULT BLOOD IN STOOL, CONTINUES TO REFUSE PEPCID MEDICATION, STATES REASONING FOR REFUSING MEDICATION HE "KNOWS HOW IT MAKES ME FEEL" PT REFUSED MEDICATION.
[2019-12-31 23:39] VITALS: BP 129/82
[2020-01-01] MEDS: METHADONE 10 MG (DOLOPHINE) TAB PO SCH ×3 (00:36→12:19)
[2020-01-01 04:45] VITALS: BP 145/83
[2020-01-01 05:39] LABS: HEMOGLOBIN 8.1 g/dL (13.3-17.7); MEAN PLATELET VOLUME 10.3 fL (9.0-12.2); WHITE BLOOD COUNT 5.1 10^3/uL (4.3-11.0)
[2020-01-01 05:58] LABS: ALBUMIN 3.4 GM/DL (3.2-4.5); CHLORIDE 113 MMOL/L (98-107); POTASSIUM 4.3 MMOL/L (3.6-5.0); SODIUM 144 MMOL/L (135-145)
[2020-01-01 06:00] LABS: CALCIUM 7.6 MG/DL (8.5-10.1)
[2020-01-01 06:01] LABS: GLUCOSE 81 MG/DL (70-105); TOTAL PROTEIN 5.5 GM/DL (6.4-8.2)
[2020-01-01 06:02] LABS: CARBON DIOXIDE 21 MMOL/L (21-32)
[2020-01-01 06:03] LABS: BILIRUBIN,TOTAL 0.4 MG/DL (0.1-1.0)
[2020-01-01 06:04] LABS: ALKALINE PHOSPHATASE 71 U/L (40-136)
[2020-01-01 06:05] LABS: GFR ESTIMATED 30
[2020-01-01 06:06] LABS: BUN/CREATININE RATIO 15
[2020-01-01 06:07] LABS: ALANINE AMINOTRANSFERASE < 6 U/L (0-55)
[2020-01-01] MEDS: LEVOTHYROXINE 25 MCG (LEVOTHROID) TAB PO SCH (06:40)
[2020-01-01] MEDS: MULTIVIT W/MINERALS TAB (THERAGRAN M) PO SCH (06:40)
[2020-01-01] MEDS: LACTATED RINGERS 1,000 ML IV SCH (07:21)
[2020-01-01 08:00] VITALS: BP 137/62
[2020-01-01] MEDS: VENlafaxine XR 75 MG (EFFEXOR XR) CAP PO SCH (09:01)
[2020-01-01] MEDS: azaTHIOprine (IMURAN) 50 MG TAB PO SCH (09:01)
[2020-01-01] MEDS: PREGABALIN 75 MG (LYRICA) CAP PO SCH (09:01)
[2020-01-01] MEDS: IRON SUCROSE 200 MG/10 ML (VENOFER) VIAL IV SCH (09:01)
[2020-01-01] MEDS: TERBINAFINE 250 MG (LamISIL) TABLET PO SCH (09:01)
[2020-01-01] MEDS: HYDROmorphone (DILAUDID) 4 MG TAB PO PRN ×3 (09:03→15:11)
[2020-01-01] MEDS: SENNA W/DOCUSATE (SENOKOT S) TABLET PO SCH (09:03)
--- NOTE | 2020-01-01 10:55 | Progress Note ---
ALBINA MURRAY MED STUDENT 01/01/20 1055: Progress Note Hospital Course: Francisco Espinoza is a 64 year old white male who presented to the ED on December 28 with nausea, vomiting, diarrhea, and increasing confusion. He was found to have acute renal failure with a creatinine level of 3.04 and hyperkalemia. He has a history of long standing crohn's disease, multiple bowel resections, and multiple admissions for bowel obstructions. He was subsequently admitted to the medical floor. CT abd/pelvis showed moderate burden of stool, suggestive of constipation. General surgery was consulted for a drop in the hemoglobin and hematocrit and following along, no surgical intervention necessary. He was transfused with 1 unit prbc this hospital stay. He was resuscitated with intravenous fluids, pain management was instituted for the abdominal pain, and was given antiemetics for the nausea. His creatinine has decreased to 2.20 today. He has been hemodynamically stable the entire hospital course and will be discharged to home today with close followup on an outpatient basis with his pcp as he needs close monitoring of kidney function. CAMI ROMERO DO 01/02/20 0612: Supervisory-Addendum Brief Verification & Attestation Participated in pt care: history, MDM, physical Personally performed: exam, history, MDM, supervision of care Care discussed with: Medical Student Procedures: n/a Results interpretation: Verified all documentation Verification and Attestation of Medical Student E/M Service A medical student performed and documented this service in my presence. I reviewed and verified all information documented by the medical student and made modifications to such information, when appropriate. I personally performed the physical exam and medical decision making. Cami Romero, Jan 02, 2020,06:12 ALBINA MURRAY MED STUDENT Jan 01, 2020 10:55 CAMI ROMERO DO Jan 02, 2020 06:12
[2020-01-01] MEDS ORDERED: FAMO20TA5 PO (11:42)
--- NOTE | 2020-01-01 11:43 | Discharge Summary ---
Discharge Summary Hospital Course Was the Problem List Reviewed?: Yes Problems/Dx: (1) Acute kidney injury Status: Acute (2) Nausea vomiting and diarrhea Status: Acute (3) Hyperkalemia Status: Acute Hospital Course Date of Admission: Dec 29, 2019 at 19:00 Admission Diagnosis : Family Physician/Provider: Ben Grace MD Date of Discharge: 01/01/20 Discharge Diagnosis: ARF, Crohn's flare, severe anemia Hospital Course: Hospital Course per medical student: Francisco Espinoza is a 64 year old white male who presented to the ED on December 28 with nausea, vomiting, diarrhea, and increasing confusion. He was found to have acute renal failure with a creatinine level of 3.04 and hyperkalemia. He has a history of long standing crohn's disease, multiple bowel resections, and multiple admissions for bowel obstructions. He was subsequently admitted to the medical floor. CT abd/pelvis showed moderate burden of stool, suggestive of constipation. General surgery was consulted for a drop in the hemoglobin and hematocrit and following along, no surgical intervention necessary. He was transfused with 1 unit prbc this hospital stay. He was resuscitated with in travenous fluids, pain management was instituted for the abdominal pain, and was given antiemetics for the nausea. His creatinine has decreased to 2.20 today. He has been hemodynamically stable the entire hospital course and will be discharged to home today with close followup on an outpatient basis with his pcp as he needs close monitoring of kidney function. ALBINA MURRAY MED STUDENT Labs and Pending Lab Test: Laboratory Tests 12/31/19 13:16: Lab Scanned Report Transfusion Reaction Form 01/01/20 05:20: White Blood Count 5.1, Red Blood Count 2.64L, Hemoglobin 8.1L, Hematocrit 25L, Mean Corpuscular Volume 95, Mean Corpuscular Hemoglobin 31, Mean Corpuscular Hemoglobin Concent 32, Red Cell Distribution Width 13.3, Platelet Count 159, Nisa n Platelet Volume 10.3, Sodium Level 144, Potassium Level 4.3, Chloride Level 113H, Carbon Dioxide Level 21, Anion Gap 10, Blood Urea Nitrogen 34H, Creatinine 2.20H, Estimat Glomerular Filtration Rate 30, BUN/Creatinine Ratio 15, Glucose Level 81, Calcium Level 7.6L, Corrected Calcium 8.1L, Total Bilirubin 0.4, Aspartate Amino Transf (AST/SGOT) 10, Alanine Aminotransferase (ALT/SGPT) < 6, Alkaline Phosphatase 71, Total Protein 5.5L, Albumin 3.4 Home Meds Active Famotidine 20 Mg Tablet 20 Mg PO Q24H Reported Terbinafine HCl 250 Mg Tablet 250 Mg PO DAILY Visine Dry Eye Relief Drop (Peg 400/Hypromellose/Glycerin) 15 Ml Drops 2 Drops OU PRN PRN Tylenol (Acetaminophen) 325 Mg Capsule 650 Mg PO Q8H PRN Multivitamin 1 Each Tablet 1 Each PO DAILY Spironolactone 50 Mg Tablet 50 Mg PO DAILY Venlafaxine HCl ER (Venlafaxine HCl) 150 Mg Cap.er.24h 150 Mg PO DAILY TAKES 75MG +150MG TO EQUAL 225MG DAILY Venlafaxine HCl ER (Venlafaxine HCl) 75 Mg Cap.er.24h 75 Mg PO DAILY TAKES 75MG +150MG TO EQUAL 225MG DAILY Cholestyramine Powder (Cholestyramine (with Sugar)) 378 Gm Powder 4 Gm PO BID PRN Levothyroxine Sodium 25 Mcg Tablet 25 Mcg PO DAILY Pregabalin 75 Mg Capsule 75 Mg PO TID Lisinopril 5 Mg Tablet 5 Mg PO DAILY Temazepam 15 Mg Capsule 15-30 Mg PO HS PRN Imuran (Azathioprine) 50 Mg Tablet 50 Mg PO DAILY Hydromorphone HCl 8 Mg Tablet 8 Mg PO Q6H PRN Methadone HCl 10 Mg Tablet 10 Mg PO Q6- 8H MDD 50MG Assessment/Pt Instructions [facility] next week for kidney check Discharge Planning: <30 minutes discharge planning Discharge Instructions Discharge Diet: No Restrictions Activity as Tolerated: Yes Discharge Physical Examination Vital Signs Vital Signs Date Time Temp Pulse Resp B/P (MAP) Pulse Ox O2 Delivery O2 Flow Rate FiO2 01/01/20 09:03 36.6 01/01/20 08:00 Room Air 01/01/20 08:00 61 18 137/62 (87) 97 General Appearance: No Apparent Distress, WD/WN, Chronically ill Allergies: Coded Allergies: Penicillins (Verified Allergy, Severe, EDEMA, 07/25/19) adhesive tape (Verified Allergy, Severe, RASH, 07/25/19) cefazolin (Verified Allergy, Severe, RASH, 07/25/19) cephalexin (Verified Allergy, Severe, RASH, 07/25/19) morphine (Verified Allergy, Severe, EDEMA, takes Hydromorphone at home, 12/30/19) butabarbital (Verified Allergy, Unknown, 07/25/19) butorphanol (Verified Allergy, Unknown, 07/25/19) ibuprofen (Verified Allergy, Unknown, 07/25/19) piperacillin (Verified Allergy, Unknown, EDEMA, 07/25/19) promethazine (Verified Allergy, Unknown, 07/25/19) silicone (Verified Allergy, Unknown, 07/25/19) zolpidem (Verified Allergy, Unknown, 07/25/19) ofloxacin (Verified Adverse Reaction, Unknown, DIARRHEA, 07/25/19) Discharge Summary Date of Admission Dec 29, 2019 at 19:00 Date of Discharge Discharge Date: Jan 01, 2020 Admission Diagnosis Assessment: ARF Anemia Crohn's flare PLan: Transfuse IVF Monitor output Discharge Diagnosis CHeck renal USG Monitor creat (1) Acute kidney injury Status: Acute (2) Nausea vomiting and diarrhea Status: Acute (3) Hyperkalemia Status: Acute Clinical Quality Measures DVT/VTE Risk/Contraindication: Risk Factor Score Per Nursin RFS Level Per Nursing on Admit: 4+=Very High INGE ROMERO DO Jan 01, 2020 11:43
[2020-01-01 12:00] VITALS: BP 148/67
--- NOTE | 2020-01-01 13:08 | Progress Note - Surgery ---
Subjective Date Seen by a Provider: Jan 01, 2020 Time Seen by a Provider: 13:04 Subjective/Events-last exam Feeling better. Still some diarrhea, but overall feeling better. Tolerating diet. Pain undercontrol. Denies fever sweats chills shortness of breath or chest pain. Objective Exam Vital Signs Date Time Temp Pulse Resp B/P (MAP) Pulse Ox O2 Delivery O2 Flow Rate FiO2 01/01/20 12:00 35.4 58 18 148/67 (94) 95 Room Air 01/01/20 09:03 36.6 01/01/20 08:00 Room Air 01/01/20 08:00 36.1 61 18 137/62 (87) 97 Room Air 01/01/20 04:45 36.2 65 19 145/83 (103) 92 Room Air 12/31/19 23:39 36.5 60 18 129/82 (98) 94 Room Air 12/31/19 19:55 Room Air 12/31/19 19:26 36.2 62 16 152/73 (99) 95 Room Air 12/31/19 15:38 36.4 66 18 132/70 (90) 96 Room Air I & O 01/01/20 07:00 Intake Total 2580 ml Output Total 2400 ml Balance 180 ml Capillary Refill : Less Than 3 Seconds General Appearance: No Apparent Distress, WD/WN, Chronically ill HEENT: PERRL/EOMI, Normal ENT Inspection Neck: Normal Inspection, Non Tender Respiratory: Lungs Clear Cardiovascular: Regular Rate, Rhythm Gastrointestinal: non tender, soft; No guarding, No rebound Extremity: Non Tender, No Calf Tenderness Neurologic/Psychiatric: Alert, Oriented x3, No Motor/Sensory Deficits, Normal Mood/Affect Skin: Warm/Dry, Pallor Lymphatic: No Adenopathy Results Lab Laboratory Tests 12/31/19 13:16: Lab Scanned Report Transfusion Reaction Form 01/01/20 05:20: White Blood Count 5.1, Red Blood Count 2.64L, Hemoglobin 8.1L, Hematocrit 25L, Mean Corpuscular Volume 95, Mean Corpuscular Hemoglobin 31, Mean Corpuscular Hemoglobin Concent 32, Red Cell Distribution Width 13.3, Platelet Count 159, Mean Platelet Volume 10.3, Sodium Level 144, Potassium Level 4.3, Chloride Level 113H, Carbon Dioxide Level 21, Anion Gap 10, Blood Urea Nitrogen 34H, Creatinine 2.20H, Estimat Glomerular Filtration Rate 30, BUN/Creatinine Ratio 15, Glucose Level 81, Calcium Level 7.6L, Corrected Calcium 8.1L, Total Bilirubin 0.4, Aspartate Amino Transf (AST/SGOT) 10, Alanine Aminotransferase (ALT/SGPT) < 6, Alkaline Phosphatase 71, Total Protein 5.5L, Albumin 3.4 Assessment/Plan Assessment/Plan Assessment/Plan Nausea/Vomiting/Diarrhea OUSMANE Hyperkalemia-improved Anemia Crohn's disease H/O SBO's S/P bowel resections Follow hemoglobin transfuse as needed, feeling better after 1 unit PRBC continue fluid resuscitation due to acute kidney injury Pt states similar episodes of flareups of Crohn's like this, will consider starting steroids if symptoms do not improve Symptomatic control Would recommend follow up with his GI doctor in No surgical intervention at this time Clinical Quality Measures DVT/VTE Risk/Contraindication: Risk Factor Score Per Nursin RFS Level Per Nursing on Admit: 4+=Very High DOLLY FORD DO Jan 01, 2020 13:08
--- NOTE | 2020-01-01 13:24 | Progress Note - Surgery ---
LAVELLE ACOSTA MED STUDENT 01/01/20 1324: Subjective Date Seen by a Provider: Jan 01, 2020 Time Seen by a Provider: 07:20 Subjective/Events-last exam Denies N/V, still having minimal diffuse abdominal pain that he says is normal for him. Says he had diarrhea yesterday, but is able to eat okay. Hgb today is 8.1, yesterday was 8.4. Objective Exam Vital Signs Date Time Temp Pulse Resp B/P (MAP) Pulse Ox O2 Delivery O2 Flow Rate FiO2 01/01/20 12:00 35.4 58 18 148/67 (94) 95 Room Air 01/01/20 09:03 36.6 01/01/20 08:00 Room Air 01/01/20 08:00 36.1 61 18 137/62 (87) 97 Room Air 01/01/20 04:45 36.2 65 19 145/83 (103) 92 Room Air 12/31/19 23:39 36.5 60 18 129/82 (98) 94 Room Air 12/31/19 19:55 Room Air 12/31/19 19:26 36.2 62 16 152/73 (99) 95 Room Air 12/31/19 15:38 36.4 66 18 132/70 (90) 96 Room Air I & O 01/01/20 07:00 Intake Total 2580 ml Output Total 2400 ml Balance 180 ml Capillary Refill : Less Than 3 Seconds General Appearance: No Apparent Distress, WD/WN, Chronically ill HEENT: PERRL/EOMI, Normal ENT Inspection Neck: Normal Inspection, Supple Respiratory: Chest Non Tender, No Accessory Muscle Use, No Respiratory Distress Cardiovascular: Regular Rate, Rhythm, No Edema Gastrointestinal: soft; No guarding, No rebound; other (mild diffuse tenderness) Extremity: Non Tender, No Calf Tenderness Neurologic/Psychiatric: Alert, Oriented x3, No Motor/Sensory Deficits, Normal Mood/Affect Skin: Warm/Dry, Pallor Lymphatic: No Adenopathy Results Lab Laboratory Tests 01/01/20 05:20: White Blood Count 5.1, Red Blood Count 2.64L, Hemoglobin 8.1L, Hematocrit 25L, Mean Corpuscular Volume 95, Mean Corpuscular Hemoglobin 31, Mean Corpuscular Hemoglobin Concent 32, Red Cell Distribution Width 13.3, Platelet Count 159, Mean Platelet Volume 10.3, Sodium Level 144, Potassium Level 4.3, Chloride Level 113H, Carbon Dioxide Level 21, Anion Gap 10, Blood Urea Nitrogen 34H, Creatinine 2.20H, Estimat Glomerular Filtration Rate 30, BUN/Creatinine Ratio 15, Glucose Level 81, Calcium Level 7.6L, Corrected Calcium 8.1L, Total Bilirubin 0.4, Aspartate Amino Transf (AST/SGOT) 10, Alanine Aminotransferase (ALT/SGPT) < 6, Alkaline Phosphatase 71, Total Protein 5.5L, Albumin 3.4 Assessment/Plan Assessment/Plan Assessment/Plan Nausea/Vomiting/Diarrhea OUSMANE Hyperkalemia-improved Anemia Crohn's disease H/O SBO's S/P bowel resections Feeling better after 1 unit PRBC continue fluid resuscitation due to acute kidney injury Pt states similar episodes of flareups of Crohn's like this, will consider starting steroids if symptoms do not improve Symptomatic control Would recommend follow up with his GI doctor in No surgical intervention at this time, stable for discharge from surgical perspective Clinical Quality Measures DVT/VTE Risk/Contraindication: Risk Factor Score Per Nursin RFS Level Per Nursing on Admit: 4+=Very High DOLLY FORD DO 01/01/20 1519: Assessment/Plan Assessment/Plan Assessment/Plan SEE MY NOTE Supervisory-Addendum Brief Verification & Attestation Participated in pt care: history, MDM, physical Personally performed: exam, history, MDM, supervision of care Care discussed with: Medical Student Procedures: n/a Results interpretation: Verified all documentation see my note LAVELLE ACOSTA MED STUDENT Jan 01, 2020 13:24 DOLLY FORD DO Jan 01, 2020 15:19
[2020-01-01 15:59] VITALS: BP 141/72
== END 2020-01-01 16:30 | disposition home or self-care (01) | DRG 386 ==
LOC: ER FS 13:48 → EDUNIT# 13:48 → ER FS 18:10 → 4TH 19:00
PROVIDERS: ADMIT Internal Medicine; ATTEND Internal Medicine
DX: K50.90 Crohn's disease, unspecified, without complications (principal); N17.9 Acute kidney failure, unspecified; K59.00 Constipation, unspecified; D64.9 Anemia, unspecified; E87.5 Hyperkalemia; R11.2 Nausea with vomiting, unspecified; E03.9 Hypothyroidism, unspecified; R41.0 Disorientation, unspecified; Z86.711 Personal history of pulmonary embolism; Z86.79 Personal history of other diseases of the circulatory system; Z86.73 Personal history of transient ischemic attack (TIA), and cerebral infarction without residual deficits
CPT/HCPCS: 36415; 71045; 74176; 76770; 80053; 81000; 82274; 83540; 83690; 83735; 84443; 84484; 85025; 85027; 86850; 86900; 86901; 86920; 93005; 96361; 96374

== ENCOUNTER 2020-01-20 10:09 | Observation (INO) | payer MEDICARE ==
[~2020-01-20] VITALS: Ht 187.9 cm; Wt 96.1 kg
[~2020-01-20 10:09] MED LIST: ACET325C7 PO; AZAT50TA16 PO; CHOL378P PO; FAMO20TA5 PO; HYDR8TAB PO; LEVO25TA5 PO; LISI-556 PO; METH10TA2 PO; MULT-1136 PO; PEG15DRO9 OU; PREG75CA75 PO; SPIR50TA4 PO; TEMA15CA PO; TERB250T16 PO; VENL150C98 PO; VENL75CA93 PO
--- NOTE | 2020-01-20 10:53 | ED Abdominal Pain ---
General Chief Complaint: Abdominal/GI Problems Stated Complaint: GEN WEAKNESS; NAUSEA Nursing Triage Note: Has had generalized abdominal pain since Saturday that is worsening. Is weak and nauseous. Last BM 2 days ago. Has hx of kidney problems and was in hospital last month for dehydration. Has hx of anemia requiring blood transfusions and thinks his hemoglobin may be low again. Hx of Crohn's disease. Denies blood in stool, fevers, or respiratory symptoms. Took dilauded and methadone at 0200 this morning for pain. Sepsis Screen: No Definite Risk Source of Information: Patient History of Present Illness Date Seen by Provider: Jan 20, 2020 Time Seen by Provider: 10:53 Initial Comments 64-year-old male presenting with complaints of generalized abdominal pain since Saturday that has been worsening. He feels weak and nauseated. He states his last bowel movement was 2 days ago. He has been having decreased oral intake because of the nausea. He denies any actual vomiting. He states that he has had decreased urine output. He denies any dark tarry stools or blood in his stool. He was concerned that he was losing blood again because he felt weak and had similar symptoms when he was admitted December 28 and required a blood transfusion. he feels dizzy when standing and changing positions. He states that the abdominal pain is diffuse and crampy. He did take a dose of Dilaudid and methadone around 2 AM to try and help with his symptoms. He states that this helps a little bit with this pain but he was still having pain so he came in today. Allergies and Home Medications Allergies Coded Allergies: Penicillins (Verified Allergy, Severe, EDEMA, 07/25/19) adhesive tape (Verified Allergy, Severe, RASH, 07/25/19) cefazolin (Verified Allergy, Severe, RASH, 07/25/19) cephalexin (Verified Allergy, Severe, RASH, 07/25/19) morphine (Verified Allergy, Severe, EDEMA, takes Hydromorphone at home, 12/30/19) butabarbital (Verified Allergy, Unknown, 07/25/19) butorphanol (Verified Allergy, Unknown, 07/25/19) ibuprofen (Verified Allergy, Unknown, 07/25/19) piperacillin (Verified Allergy, Unknown, EDEMA, 07/25/19) promethazine (Verified Allergy, Unknown, 07/25/19) silicone (Verified Allergy, Unknown, 07/25/19) zolpidem (Verified Allergy, Unknown, 07/25/19) ofloxacin (Verified Adverse Reaction, Unknown, DIARRHEA, 07/25/19) Home Medications Acetaminophen 325 Mg Capsule, 650 MG PO Q8H PRN for PAIN-MILD (1-4), (Reported) Azathioprine 50 Mg Tablet, 50 MG PO DAILY, (Reported) Cholestyramine (with Sugar) 378 Gm Powder, 4 GM PO BID PRN for DIARRHEA, (Reported) Famotidine 20 Mg Tablet, 20 MG PO Q24H Prescribed by: INGE ROMERO on 01/01/20 1142 Hydromorphone HCl 8 Mg Tablet, 8 MG PO Q6H PRN for PAIN-SEVERE (8-10), (Reported) Levothyroxine Sodium 25 Mcg Tablet, 25 MCG PO DAILY, (Reported) Lisinopril 5 Mg Tablet, 5 MG PO DAILY, (Reported) Methadone HCl 10 Mg Tablet, 10 MG PO Q6- 8H, (Reported) Multivitamin 1 Each Tablet, 1 EACH PO DAILY, (Reported) Peg 400/Hypromellose/Glycerin 15 Ml Drops, 2 DROPS OU PRN PRN for DRY EYES, (Reported) Pregabalin 75 Mg Capsule, 75 MG PO TID, (Reported) Spironolactone 50 Mg Tablet, 50 MG PO DAILY, (Reported) Temazepam 15 Mg Capsule, 15-30 MG PO HS PRN for SLEEP, (Reported) Terbinafine HCl 250 Mg Tablet, 250 MG PO DAILY, (Reported) Venlafaxine HCl 75 Mg Cap.er.24h, 75 MG PO DAILY, (Reported) TAKES 75MG +150MG TO EQUAL 225MG DAILY Venlafaxine HCl 150 Mg Cap.er.24h, 150 MG PO DAILY, (Reported) TAKES 75MG +150MG TO EQUAL 225MG DAILY Patient Home Medication List Home Medication List Reviewed: Yes Review of Systems Review of Systems Constitutional: see HPI; No chills; dizziness; No fever; malaise EENTM: No Symptoms Reported Respiratory: Denies Cough, Denies Shortness of Air Cardiovascular: Denies Chest Pain Gastrointestinal: See HPI Genitourinary: See HPI; Denies Burning Musculoskeletal: no symptoms reported Skin: No rash Psychiatric/Neurological: Denies Headache; Weakness (general) Endocrine: Intolerance to Cold Hematologic/Lymphatic: Easy Bleeding, Easy Bruising Past Itpkquq-Qkzkgr-Wdelvr Hx Past Med/Social Hx: Reviewed Nursing Past Med/Soc Hx Patient Social History Alcohol Use: Denies Use Recreational Drug Use: No 2nd Hand Smoke Exposure: No Recent Foreign Travel: No Contact w/Someone Who Travel: No Recent Infectious Disease Expo: No Recent Hopitalizations: No Physical Abuse: No Sexual Abuse: No Mistreated: No Fear: No Immunizations Up To Date Date of Influenza Vaccine: Nov 13, 2018 Seasonal Allergies Seasonal Allergies: No Past Medical History Surgeries: Yes (X11 ABDOMIAL, EYE) Appendectomy, Bowel Surgery, Eye Surgery, Gallbladder Respiratory: No Currently Using CPAP: No Currently Using BIPAP: No Cardiac: Yes (BLOD CLOT, PERICARDITIS) Neurological: Yes (BRAIN STEM STROKE) Stroke Genitourinary: No Gastrointestinal: Yes Crohns Disease, Obstructive Bowel Musculoskeletal: No Endocrine: No Hypothyroidsim HEENT: No Cataract Loss of Vision: Denies Hearing Impairment: Denies Cancer: No Psychosocial: No Integumentary: No Blood Disorders: No Family Medical History Asthma Physical Exam Vital Signs Vital Signs - First Documented 01/20/20 10:23 Temp 36.6 Pulse 77 Resp 14 B/P (MAP) 152/59 (90) Pulse Ox 99 Capillary Refill : Less Than 3 Seconds Height/Weight/BMI Height: '" Weight: lbs. oz. kg; 27.00 BMI Method: General Appearance: mild distress HEENT: PERRL/EOMI, pharynx normal Neck: supple, normal inspection Respiratory: chest non-tender, lungs clear, normal breath sounds, no respiratory distress, no accessory muscle use Cardiovascular: normal peripheral pulses, regular rate, rhythm Gastrointestinal: soft, no pulsatile mass, abnormal bowel sounds (hypoactive); No guarding, No rebound; tenderness (diffuse mild) Rectal: deferred Extremities: normal range of motion, normal capillary refill Neurologic/Psychiatric: visual specialist II-XII nml as tested, alert, oriented x 3 Skin: normal color, warm/dry Images 1 - diffuse abdominal tenderness. No rebound or guarding Progress/Results/Core Measures Results/Orders Lab Results Laboratory Tests Test 01/20/20 11:03 01/20/20 11:13 Range/Units White Blood Count 5.4 4.3-11.0 10^3/uL Red Blood Count 2.79 L 4.35-5.85 10^6/uL Hemoglobin 8.6 L 13.3-17.7 G/DL Hematocrit 26 L 40-54 % Mean Corpuscular Volume 93 80-99 FL Mean Corpuscular Hemoglobin 31 25-34 PG Mean Corpuscular Hemoglobin Concent 33 32-36 G/DL Red Cell Distribution Width 13.2 10.0-14.5 % Platelet Count 165 130-400 10^3/uL Mean Platelet Volume 10.2 7.4-10.4 FL Immature Granulocyte % (Auto) 0 % Neutrophils (%) (Auto) 77 H 42-75 % Lymphocytes (%) (Auto) 16 12-44 % Monocytes (%) (Auto) 6 0-12 % Eosinophils (%) (Auto) 1 0-10 % Basophils (%) (Auto) 0 0-10 % Neutrophils # (Auto) 4.1 1.8-7.8 X 10^3 Lymphocytes # (Auto) 0.9 L 1.0-4.0 X 10^3 Monocytes # (Auto) 0.3 0.0-1.0 X 10^3 Eosinophils # (Auto) 0.0 0.0-0.3 10^3/uL Basophils # (Auto) 0.0 0.0-0.1 10^3/uL Immature Granulocyte # (Auto) 0.0 0.0-0.1 10^3/uL Sodium Level 139 135-145 MMOL/L Potassium Level 5.0 3.6-5.0 MMOL/L Chloride Level 105 98-107 MMOL/L Carbon Dioxide Level 21 21-32 MMOL/L Anion Gap 13 5-14 MMOL/L Blood Urea Nitrogen 32 H 7-18 MG/DL Creatinine 2.06 H 0.60-1.30 MG/DL Estimat Glomerular Filtration Rate 33 BUN/Creatinine Ratio 16 Glucose Level 102 70-105 MG/DL Calcium Level 8.7 8.5-10.1 MG/DL Corrected Calcium 8.5 8.5-10.1 MG/DL Total Bilirubin 0.5 0.1-1.0 MG/DL Aspartate Amino Transf (AST/SGOT) 9 5-34 U/L Alanine Aminotransferase (ALT/SGPT) 6 0-55 U/L Alkaline Phosphatase 106 40-136 U/L Total Protein 6.5 6.4-8.2 GM/DL Albumin 4.2 3.2-4.5 GM/DL Lipase 34 8-78 U/L Urine Color YELLOW Urine Clarity CLEAR Urine pH 5.5 5-9 Urine Specific [place] >1.030 1.016-1.022 Urine Protein 1+ H NEGATIVE Urine Glucose (UA) NEGATIVE NEGATIVE Urine Ketones NEGATIVE NEGATIVE Urine Nitrite NEGATIVE NEGATIVE Urine Bilirubin NEGATIVE NEGATIVE Urine Urobilinogen 0.2 < = 1.0 MG/DL Urine Leukocyte Esterase NEGATIVE NEGATIVE Urine RBC (Auto) 1+ H NEGATIVE Urine RBC 2-5 H /HPF Urine WBC NONE /HPF Urine Crystals NONE /LPF Urine Bacteria NONE /HPF Urine Casts NONE /LPF Urine Mucus NEGATIVE /LPF Urine Culture Indicated NO My Orders Orders - ALFONSO ACKERMAN MD Comprehensive Metabolic Panel (01/20/20 10:39) Lipase (01/20/20 10:39) Ua Culture If Indicated (01/20/20 10:39) Ed Iv/Invasive Line Start (01/20/20 10:39) Cbc With Automated Diff (01/20/20 10:39) Ns Iv 1000 Ml (Sodium Chloride 0.9%) (01/20/20 11:30) Hydromorphone Injection (Dilaudid Inject (01/20/20 11:30) Ondansetron Injection (Zofran Injectio (01/20/20 11:30) Ct Abdomen/Pelvis Wo (01/20/20 11:27) Medications Given in ED Current Medications Medications Dose Ordered Sig/Ceasar Route Start Time Stop Time Status Last Admin Dose Admin Hydromorphone HCl 0.5 mg ONCE ONCE IVP 01/20/20 11:30 01/20/20 11:31 DC 01/20/20 12:05 0.5 MG Ondansetron HCl 4 mg ONCE ONCE IVP 01/20/20 11:30 01/20/20 11:31 DC 01/20/20 12:06 4 MG Vital Signs/I&O 01/20/20 10:23 Temp 36.6 Pulse 77 Resp 14 B/P (MAP) 152/59 (90) Pulse Ox 99 Blood Pressure Mean: 90 Progress Progress Note #1: Progress Note check basic labs and CT scan. Since his access is through a port will not be abl e to do an IV contrast study, plus his last GFR and Cr were elevated anyway. Give IVF for hydration, Dilaudid 0.5 mg IV, Zofran 4 mg IV. Progress Note #2: Progress Note labs appear stable from his last discharge. His hemoglobin is 8.6 and creatinine 2.0. His urine does appear concentrated with an elevated specific gravity greater than 1.030. The CT scan came back showing constipation with evidence of some mild ileus. Discussed with the patient and since he is not tolerating oral very well Will discuss with the hospitalist on-call for [facility] about admission to hydrate and make sure he is tolerating oral as well as having his bowels move before discharge to home. Concerned that if he went home at this point that he could not tolerate oral and ended up with a bowel distraction or worsening dehydration and worsening renal function. I placed a call to Dr. Sosa at [phone] and left a message for her to call me back. Progress Note #3: Time: 13:18 Progress Note 1318 d/w Dr. Sosa and she accepted pt for admit for hydration and to ensure he is having bowel movements and tolerating po Diagnostic Imaging Diagonstic Imaging: CT Plain Films/CT/US/NM/MRI: abdomen, pelvis Comments [facility], [place] NAME: MIRNA RAMIREZ [facility] REC#: [id number] PT STATUS: REG ER : 1955 PHYSICIAN: ALFONSO ACKERMAN MD ADMIT DATE: 01/20/20/ER FS Draft Date of Exam:01/20/20 CT ABDOMEN/PELVIS WO PROCEDURE: CT abdomen and pelvis without contrast. TECHNIQUE: Multiple contiguous axial images were obtained through the abdomen and pelvis without the use of intravenous contrast. Auto Exposure Controls were utilized during the CT exam to meet ALARA standards for radiation dose reduction. INDICATION: Diffuse abdominal pain, nausea, history of Crohn's disease and multiple surgeries. COMPARISON: 12/29/2019. FINDINGS: There is chronic scarring/atelectasis in the lateral left lung base. The heart is normal in size. The liver demonstrates no focal lesions. The spleen appears normal. The pancreas is normal. The adrenal glands appear normal. The kidneys demonstrate no calculi or hydronephrosis. Cholecystectomy clips are noted. Anastomotic sutures are seen in the bowel. Marked stool is seen in the colon and rectum beginning at the descending colon. There are a few prominent loops of small bowel in the left abdomen. There is a mild amount of mesenteric edema. No fluid collections are seen on this noncontrast exam. There is mild atherosclerosis. There is a small fat-containing right inguinal hernia. There are degenerative changes in the spine. No free air is seen. IMPRESSION: 1. Marked stool in the colon, please correlate with history of constipation. 2. Mildly prominent loops of small bowel in the left abdomen, may represent an ileus. No definite transition point or obstruction is seen. Mild mesenteric edema may be reactive to inflammatory change given the patient's history. Dictated on workstation # [id number] Dict: 01/20/20 1157 Trans: 01/20/20 1206 [id number] Interpreted by: KRYSTEN MCKINNEY MD Electronically signed by: Departure Communication (Admissions) Time/Spoke to Admitting Phy: 13:[address] Sosa and will admit the patient for hydration and make sure that he is tolerating oral as well as having his bowels move. Will order a single dose of MiraLAX on arrival to the hospital to try and help with starting his bowels moving. Impression Primary Impression: Ileus Additional Impressions: Dehydration Chronic renal failure Qualified Codes: N18.3 - Chronic kidney disease, stage 3 (moderate) Disposition: 30 STILL A PATIENT Condition: Stable Admissions Decision to Admit Reason: Admit from ER (General) Decision to Admit/Date: Jan 20, 2020 Time/Decision to Admit Time: 13:18 Departure-Patient Inst. Referrals: HERBERT DAO MD (PCP/Family) Primary Care Physician ALFONSO ACKERMAN MD Jan 20, 2020 10:53
[2020-01-20 11:23] LABS: CLARITY,URINE CLEAR; COLOR,URINE YELLOW; PH,URINE 5.5 (5-9)
[2020-01-20 11:24] LABS: BILIRUBIN,URINE NEGATIVE (NEGATIVE); GLUCOSE, URINE (UA) NEGATIVE (NEGATIVE); KETONES,URINE NEGATIVE (NEGATIVE); LEUKOCYTE ESTERASE ,URINE NEGATIVE (NEGATIVE); NITRITE,URINE NEGATIVE (NEGATIVE); PROTEIN,URINE 1+ (NEGATIVE)
[2020-01-20 11:24] LABS: HEMATOCRIT 26 % (40-54); HEMOGLOBIN 8.6 G/DL (13.3-17.7); MEAN CORPUSCULAR HEMOGLOBIN 31 PG (25-34); MEAN CORPUSCULAR HGB CONC 33 G/DL (32-36); MEAN CORPUSCULAR VOLUME 93 FL (80-99); WHITE BLOOD COUNT 5.4 10^3/uL (4.3-11.0)
[2020-01-20 11:25] LABS: BASOPHILS % (AUTO) 0 % (0-10); EOSINOPHILS % (AUTO) 1 % (0-10); LYMPHOCYTES # (AUTO) 0.9 X 10^3 (1.0-4.0); LYMPHOCYTES % (AUTO) 16 % (12-44); MEAN PLATELET VOLUME 10.2 FL (7.4-10.4); MONOCYTES # (AUTO) 0.3 X 10^3 (0.0-1.0); MONOCYTES % (AUTO) 6 % (0-12); NEUTROPHILS # (AUTO) 4.1 X 10^3 (1.8-7.8); NEUTROPHILS % (AUTO) 77 % (42-75); PLATELET COUNT 165 10^3/uL (130-400)
[2020-01-20 11:29] LABS: ALBUMIN 4.2 GM/DL (3.2-4.5); BILIRUBIN,TOTAL 0.5 MG/DL (0.1-1.0); CALCIUM 8.7 MG/DL (8.5-10.1); CREATININE SERUM 2.06 MG/DL (0.60-1.30); TOTAL PROTEIN 6.5 GM/DL (6.4-8.2)
[2020-01-20] MEDS ORDERED: HYDROmorphone 2 MG/ML VIAL (DILAUDID) IVP ONE (11:30)
[2020-01-20] MEDS ORDERED: ONDANSETRON 4 MG/2 ML (SDV) Z0FRAN IVP ONE ×2 (11:30→14:45)
[2020-01-20] MEDS ORDERED: NS IV 1000 ML 1,000 ML IV SCH (11:30)
--- NOTE | 2020-01-20 12:07 | Diagnostic Imaging Report ---
PROCEDURE: CT abdomen and pelvis without contrast. TECHNIQUE: Multiple contiguous axial images were obtained through the abdomen and pelvis without the use of intravenous contrast. Auto Exposure Controls were utilized during the CT exam to meet ALARA standards for radiation dose reduction. INDICATION: Diffuse abdominal pain, nausea, history of Crohn's disease and multiple surgeries. COMPARISON: 12/29/2019. FINDINGS: There is chronic scarring/atelectasis in the lateral left lung base. The heart is normal in size. The liver demonstrates no focal lesions. The spleen appears normal. The pancreas is normal. The adrenal glands appear normal. The kidneys demonstrate no calculi or hydronephrosis. Cholecystectomy clips are noted. Anastomotic sutures are seen in the bowel. Marked stool is seen in the colon and rectum beginning at the descending colon. There are a few prominent loops of small bowel in the left abdomen. There is a mild amount of mesenteric edema. No fluid collections are seen on this noncontrast exam. There is mild atherosclerosis. There is a small fat-containing right inguinal hernia. There are degenerative changes in the spine. No free air is seen. IMPRESSION: 1. Marked stool in the colon, please correlate with history of constipation. 2. Mildly prominent loops of small bowel in the left abdomen, may represent an ileus. No definite transition point or obstruction is seen. Mild mesenteric edema may be reactive to inflammatory change given the patient's history. Dictated by: Dictated on workstation # [id number]
[2020-01-20] MEDS ORDERED: LISI-556 PO (16:34)
[2020-01-20] MEDS ORDERED: SPIR50TA PO (16:34)
[2020-01-20] MEDS ORDERED: ONDANSETRON 4 MG/2 ML (SDV) Z0FRAN IVP PRN (16:45)
[2020-01-20 17:14] VITALS: BP 160/79
[2020-01-20] MEDS: NS IV 1000 ML 1,000 ML IV SCH (17:21)
--- NOTE | 2020-01-20 18:05 | History & Physical ---
TELLY GOMEZ MED STUDENT 01/20/20 5005: History of Present Illness History of Present Illness Reason for visit/HPI CC: Abdominal Pain HPI: Francisco presented to the [place] [facility] today with a chief complaint of abdominal pain. He stated that the pain started on Saturday. Pt stated that this pain is different than the pain that he normally has with his Crohn's disease. Pt described the pain as "clawing" and rated his pain at 5/10. He stated that the pain has increased in intensity since Saturday, but has not increased in frequency. He also stated that the pain seems to come and go and that it is over the whole abdomen. The pain is better with pain medications, he took methadone and dilaudid last night because he was in so much pain. The pain is worse when he is trying to move around in bed, or when he lays on his back. Date of Admission Jan 20, 2020 at 15:43 Date Seen by a Provider: Jan 20, 2020 Time Seen by a Provider: 17:00 I consulted on this patient on 01/20/20 18:00 Attending Physician Moody Garcia MD Admitting Physician Ben Grace MD Consult Allergies and Home Medications Allergies Coded Allergies: Penicillins (Verified Allergy, Severe, EDEMA, 07/25/19) adhesive tape (Verified Allergy, Severe, RASH, 07/25/19) cefazolin (Verified Allergy, Severe, RASH, 07/25/19) cephalexin (Verified Allergy, Severe, RASH, 07/25/19) morphine (Verified Allergy, Severe, EDEMA, takes Hydromorphone at home, 12/30/19) butabarbital (Verified Allergy, Unknown, 07/25/19) butorphanol (Verified Allergy, Unknown, 07/25/19) ibuprofen (Verified Allergy, Unknown, 07/25/19) piperacillin (Verified Allergy, Unknown, EDEMA, 07/25/19) promethazine (Verified Allergy, Unknown, 07/25/19) silicone (Verified Allergy, Unknown, 07/25/19) zolpidem (Verified Allergy, Unknown, 07/25/19) ofloxacin (Verified Adverse Reaction, Unknown, DIARRHEA, 07/25/19) Home Medications Acetaminophen 325 Mg Capsule, 650 MG PO Q8H PRN for PAIN-MILD (1-4), (Reported) Azathioprine 50 Mg Tablet, 50 MG PO DAILY, (Reported) Cholestyramine (with Sugar) 378 Gm Powder, 4 GM PO BID PRN for DIARRHEA, (Reported) Famotidine 20 Mg Tablet, 20 MG PO Q24H Prescribed by: INGE ROMERO on 01/01/20 1142 Hydromorphone HCl 8 Mg Tablet, 8 MG PO Q6H PRN for PAIN-SEVERE (8-10), (Reported) Levothyroxine Sodium 25 Mcg Tablet, 25 MCG PO DAILY, (Reported) Lisinopril 5 Mg Tablet, 5 MG PO DAILY, (Reported) Methadone HCl 10 Mg Tablet, 10 MG PO Q6- 8H, (Reported) Multivitamin 1 Each Tablet, 1 EACH PO DAILY, (Reported) Peg 400/Hypromellose/Glycerin 15 Ml Drops, 2 DROPS OU PRN PRN for DRY EYES, (R eported) Pregabalin 75 Mg Capsule, 75 MG PO TID, (Reported) Temazepam 15 Mg Capsule, 15-30 MG PO HS PRN for SLEEP, (Reported) Terbinafine HCl 250 Mg Tablet, 250 MG PO DAILY, (Reported) Venlafaxine HCl 75 Mg Cap.er.24h, 75 MG PO DAILY, (Reported) TAKES 75MG +150MG TO EQUAL 225MG DAILY Venlafaxine HCl 150 Mg Cap.er.24h, 150 MG PO DAILY, (Reported) TAKES 75MG +150MG TO EQUAL 225MG DAILY Past Getjajl-Ykdpiu-Pvnckg Hx Patient Social History Employed/Student: retired Alcohol Use: Denies Use Recreational Drug Use: No Smoking Status: Never a Smoker 2nd Hand Smoke Exposure: No Recent Foreign Travel: No Contact w/other who traveled: No Recent Hopitalizations: No Recent Infectious Disease Expo: No Immunizations Up To Date Date of Pneumonia Vaccine: Jan 19, 2017 Date of Influenza Vaccine: Nov 14, 2019 Seasonal Allergies Seasonal Allergies: No Surgeries Yes (X11 ABDOMIAL, EYE) Appendectomy, Bowel Surgery, Eye Surgery, Gallbladder Respiratory Yes Pulmonary Embolism Currently Using CPAP: No Currently Using BIPAP: No Cardiovascular Yes (BLOD CLOT, PERICARDITIS) 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, 2018) Genitourinary No Gastrointestinal Yes Crohns Disease, Obstructive Bowel Musculoskeletal No Endocrine History of Endocrine Disorders: Yes Endocrine Disorders: Hypothyroidsim HEENT History of HEENT Disorders: No HEENT Disorders: Cataract Loss of Vision: Denies Hearing Impairment: Denies Cancer No Psychosocial History of Psychiatric Problem: No Integumentary History of Skin or Integumenta: No Blood Transfusions History of Blood Disorders: No Family Medical History Significant Family History: Asthma Review of Systems Constitutional: No chills, No diaphoresis, No dizziness, No fever EENTM: No blurred vision, No vision loss Respiratory: No cough, No hemoptysis, No short of breath Cardiovascular: No chest pain, No palpitations Gastrointestinal: abdominal pain (all four quadrants ), constipation; No hematemesis; nausea; No vomiting Genitourinary: no symptoms reported Musculoskeletal: No joint pain, No joint swelling Physical Exam Vital Signs Vital Signs - First Documented 01/20/20 01/20/20 10:23 16:24 Temp 36.6 Pulse 77 Resp 14 B/P (MAP) 152/59 (90) Pulse Ox 99 O2 Delivery Room Air Capillary Refill : Less Than 3 Seconds Height, Weight, BMI Height: '" Weight: lbs. oz. kg; 27.21 BMI Method: General Appearance: WD/WN, Mild Distress HEENT: PERRL/EOMI; No Scleral Icterus (L), No Scleral Icterus (R) Neck: Full Range of Motion, Normal Inspection, Supple; No Lymphadenopathy (L), No Lymphadenopathy (R); Tender Lateral (L) Respiratory: Chest Non Tender, Lungs Clear, Normal Breath Sounds, No Accessory Muscle Use, No Respiratory Distress Cardiovascular: Regular Rate, Rhythm, No Edema, No Murmur, Normal Peripheral Pulses Gastrointestinal: Normal Bowel Sounds, Soft, Tenderness Extremity: Normal Capillary Refill, Normal Inspection, No Pedal Edema Neurologic/Psychiatric: Alert, Oriented x3, Sensory Deficit (No pain and temperature on R body and L face ) Skin: Normal Color, Warm/Dry; No Diaphoresis Lymphatic: No Adenopathy Assessment/Plan Assessment and Plan Problems: (1) Ileus Status: Acute Assessment & Plan: 01/19- Clear liquid diet, start Miralax. If patient starts vomiting, proceed to NPO status. (2) Abdominal pain Status: Acute Qualifiers: Qualified Codes: R10.84 - Generalized abdominal pain Assessment & Plan: 01/19- Continue home medications with appropriate renal dosing adjustments for methadone, pregabalin and dilaudid. (3) Dehydration Status: Acute Assessment & Plan: 01/19- IV fluids, NaCl running 125 MLS/hr. Monitor electrolyte levels with BMP (4) Crohn disease Assessment & Plan: 01/19- Monitor for possible Crohn's flare. Continue home medications with appropriate renal dosing adjustments as needed. (5) Acute kidney injury Status: Acute Assessment & Plan: 01/19- Appropriate renal dosing of all home medications, IV fluids (6) Anemia Status: Chronic Qualifiers: Qualified Codes: D64.9 - Anemia, unspecified Assessment & Plan: 01/19- Continue to monitor hemoglobin levels with CBC. Most likely anemia due to chronic disease. Monitor for acute blood loss. (7) DVT prophylaxis Status: Acute Assessment & Plan: 01/19- Start Lovenox injections. Clinical Quality Measures DVT/VTE Risk/Contraindication: Risk Factor Score Per Nursin RFS Level Per Nursing on Admit: 4+=Very High MOODY GARCIA MD 01/20/20 2111: History of Present Illness History of Present Illness Reason for visit/HPI Pt noted he had diarrhea and was taking cholestyramine for the last few days. Allergies and Home Medications Allergies Coded Allergies: Penicillins (Verified Allergy, Severe, EDEMA, 07/25/19) adhesive tape (Verified Allergy, Severe, RASH, 07/25/19) cefazolin (Verified Allergy, Severe, RASH, 07/25/19) cephalexin (Verified Allergy, Severe, RASH, 07/25/19) morphine (Verified Allergy, Severe, EDEMA, takes Hydromorphone at home, 12/30/19) butabarbital (Verified Allergy, Unknown, 07/25/19) butorphanol (Verified Allergy, Unknown, 07/25/19) ibuprofen (Verified Allergy, Unknown, 07/25/19) piperacillin (Verified Allergy, Unknown, EDEMA, 07/25/19) promethazine (Verified Allergy, Unknown, 07/25/19) silicone (Verified Allergy, Unknown, 07/25/19) zolpidem (Verified Allergy, Unknown, 07/25/19) ofloxacin (Verified Adverse Reaction, Unknown, DIARRHEA, 07/25/19) Home Medications Acetaminophen 325 Mg Capsule, 650 MG PO Q8H PRN for PAIN-MILD (1-4), (Reported) Azathioprine 50 Mg Tablet, 50 MG PO DAILY, (Reported) Cholestyramine (with Sugar) 378 Gm Powder, 4 GM PO BID PRN for DIARRHEA, (Reported) Famotidine 20 Mg Tablet, 20 MG PO Q24H Prescribed by: INGE ROMERO on 01/01/20 1142 Hydromorphone HCl 8 Mg Tablet, 8 MG PO Q6H PRN for PAIN-SEVERE (8-10), (Reported) Levothyroxine Sodium 25 Mcg Tablet, 25 MCG PO DAILY, (Reported) Lisinopril 5 Mg Tablet, 5 MG PO DAILY, (Reported) Methadone HCl 10 Mg Tablet, 10 MG PO Q6- 8H, (Reported) Multivitamin 1 Each Tablet, 1 EACH PO DAILY, (Reported) Peg 400/Hypromellose/Glycerin 15 Ml Drops, 2 DROPS OU PRN PRN for DRY EYES, (Reported) Pregabalin 75 Mg Capsule, 75 MG PO TID, (Reported) Temazepam 15 Mg Capsule, 15-30 MG PO HS PRN for SLEEP, (Reported) Terbinafine HCl 250 Mg Tablet, 250 MG PO DAILY, (Reported) Venlafaxine HCl 75 Mg Cap.er.24h, 75 MG PO DAILY, (Reported) TAKES 75MG +150MG TO EQUAL 225MG DAILY Venlafaxine HCl 150 Mg Cap.er.24h, 150 MG PO DAILY, (Reported) TAKES 75MG +150MG TO EQUAL 225MG DAILY Patient Home Medication List Home Medication List Reviewed: Yes Physical Exam General Appearance: WD/WN Respiratory: Lungs Clear, Normal Breath Sounds Cardiovascular: Regular Rate, Rhythm, No Edema, No Murmur Gastrointestinal: Normal Bowel Sounds, Soft, Tenderness Extremity: No Pedal Edema Neurologic/Psychiatric: Alert, Normal Mood/Affect Skin: Normal Color, Warm/Dry Assessment/Plan Admission Diagnosis Admission Status: Observation Supervisory-Addendum Brief Verification & Attestation Participated in pt care: history, MDM, physical Personally performed: exam, history, MDM Care discussed with: Medical Student Procedures: n/a I personally repeated the history and physical exam (see my physical exam documentation) and the history is the same as that documented by the medical student. I directed the plan of care as documented. He had iron studies done out patient which showed normal TIBC, iron and ferritin in the summer, elevated ferritin in December, suspect anemia of chronic disease, but did also have hemoccult positive stool outpatient- possibly chronic related to Crohn's. Monitor anemia closely with enoxaparin use. OUSMANE noted at hospitalization in December, reportedly normal kidney function prior, after last hospitalization had Cr still at above 2 outpatient a couple of weeks ago. Unclear if he has new CKD versus persistent acute kidney injury. If not improving with fluids, will need further work-up for CKD. Confirmed home pain medication doses as those reported here and those on his outpatient EMR did not match, and he reports these are prescribed by Dr. Mejia although his PCP is Dr. Grace. TELLY GOMEZ MED STUDENT Jan 20, 2020 18:05 MOODY GARCIA MD Jan 20, 2020 21:11
[2020-01-20] MEDS ORDERED: TEMAZEPAM 15 MG (RESTORIL) CAP PO PRN (18:15)
[2020-01-20] MEDS ORDERED: FAMOTIDINE 20 MG (PEPCID) TABLET PO SCH (18:15)
[2020-01-20] MEDS ORDERED: ENOXAPARIN 40 MG/0.4 ML (LOVENOX) SYR SC SCH (18:30)
[2020-01-20] MEDS: PREGABALIN 75 MG (LYRICA) CAP PO SCH (18:47)
[2020-01-20] MEDS: HYDROmorphone (DILAUDID) 4 MG TAB PO PRN (18:48)
[2020-01-20 19:10] VITALS: BP 149/78
[2020-01-20] MEDS ORDERED: PREGABALIN 75 MG (LYRICA) CAP PO SCH (21:00)
[2020-01-20] MEDS: METHADONE 10 MG (DOLOPHINE) TAB PO SCH (21:52)
[2020-01-21] MEDS: NS IV 1000 ML 1,000 ML IV SCH ×2 (00:14→08:02)
[2020-01-21 00:24] VITALS: BP 146/76
[2020-01-21 03:08] VITALS: BP 133/73
[2020-01-21] MEDS: HYDROmorphone (DILAUDID) 4 MG TAB PO PRN (05:56)
[2020-01-21 06:30] LABS: BASOPHILS % (AUTO) 1 % (0-10); EOSINOPHILS # (AUTO) 0.1 10^3/uL (0.0-0.3); EOSINOPHILS % (AUTO) 3 % (0-10); HEMATOCRIT 25 % (40-54); HEMOGLOBIN 7.8 g/dL (13.3-17.7); LYMPHOCYTES # (AUTO) 1.1 10^3/uL (1.0-4.0); LYMPHOCYTES % (AUTO) 25 % (12-44); MEAN CORPUSCULAR HEMOGLOBIN 31 pg (25-34); MEAN CORPUSCULAR HGB CONC 32 g/dL (32-36); MEAN CORPUSCULAR VOLUME 98 fL (80-99); MEAN PLATELET VOLUME 10.1 fL (9.0-12.2); MONOCYTES # (AUTO) 0.3 10^3/uL (0.0-1.0); MONOCYTES % (AUTO) 8 % (0-12); NEUTROPHILS # (AUTO) 2.6 10^3/uL (1.8-7.8); NEUTROPHILS % (AUTO) 63 % (42-75); PLATELET COUNT 142 10^3/uL (130-400); WHITE BLOOD COUNT 4.2 10^3/uL (4.3-11.0)
[2020-01-21 06:46] LABS: ALBUMIN 3.7 GM/DL (3.2-4.5); BILIRUBIN,TOTAL 0.7 MG/DL (0.1-1.0); CALCIUM 7.9 MG/DL (8.5-10.1); CREATININE SERUM 2.02 MG/DL (0.60-1.30); POTASSIUM 4.6 MMOL/L (3.6-5.0); TOTAL PROTEIN 5.5 GM/DL (6.4-8.2)
[2020-01-21] MEDS ORDERED: VENlafaxine XR 75 MG (EFFEXOR XR) CAP PO SCH ×2 (07:00→09:00)
[2020-01-21] MEDS ORDERED: MULTIVIT W/MINERALS TAB (THERAGRAN M) PO SCH (07:00)
[2020-01-21 07:40] VITALS: BP 121/74
[2020-01-21] MEDS ORDERED: polyethylene glycoL POWDER 17 GM (MIRALAX) PACK PO NR (08:00)
[2020-01-21] MEDS: METHADONE 10 MG (DOLOPHINE) TAB PO SCH ×2 (08:03→12:46)
[2020-01-21] MEDS: PREGABALIN 75 MG (LYRICA) CAP PO SCH (08:03)
[2020-01-21] MEDS ORDERED: SPIRONOLACTONE 50 MG PO SCH (09:00)
[2020-01-21] MEDS ORDERED: LEVOTHYROXINE 25 MCG (LEVOTHROID) TAB PO SCH (09:00)
[2020-01-21] MEDS ORDERED: azaTHIOprine (IMURAN) 50 MG TAB PO SCH (09:00)
[2020-01-21] MEDS ORDERED: lisINopril 5 MG (PRINIVIL) TABLET PO SCH (09:00)
--- NOTE | 2020-01-21 09:02 | Progress Note ---
Subjective Subjective Date Seen by Provider: Jan 21, 2020 Time Seen by Provider: 07:45 Francisco states that his pain is doing better today, but that he is much more nauseous. He stated that his current pain is the pain he normally has with the Crohn's disease. He is not having any of the clawing pain that brought him to the ER yesterday. He stated that his gut feels like it is being spastic. He had three loose bowel movements last night. Denies any bleeding with those bowel movements. Denies fevers, chills, vomiting, hematochezia, melena and constipation. Review of Systems General: No Chills; Fatigue HEENT: No Visual Changes Pulmonary: No Dyspnea, No Cough Cardiovascular: No: Chest Pain, Palpitations Gastrointestinal: Nausea, Abdominal Pain (Generalized), Diarrhea; No: Vomiting, Constipation, Melena, Hematochezia Genitourinary: No Frequency, No Incontinence Objective Exam Vital Signs Vital Signs - First Documented 01/20/20 01/20/20 10:23 16:24 Temp 36.6 Pulse 77 Resp 14 B/P (MAP) 152/59 (90) Pulse Ox 99 O2 Delivery Room Air Capillary Refill : Less Than 3 Seconds General Appearance: No Apparent Distress, WD/WN HEENT: PERRL/EOMI; No Scleral Icterus (L), No Scleral Icterus (R) Neck: Normal Inspection, Non Tender, Supple; No Lymphadenopathy (L), No Lymphadenopathy (R) Respiratory: Chest Non Tender, Lungs Clear, Normal Breath Sounds, No Accessory Muscle Use Cardiovascular: Regular Rate, Rhythm, No Edema, No Murmur, Normal Peripheral Pulses Gastrointestinal: Normal Bowel Sounds, Soft, Tenderness (Generalized ) Extremity: Normal Capillary Refill, No Pedal Edema Neurologic/Psychiatric: Alert, Oriented x3, Normal Mood/Affect Skin: Normal Color, Warm/Dry Lymphatic: No Adenopathy Results Lab Laboratory Tests 01/20/20 11:03: White Blood Count 5.4, Red Blood Count 2.79L, Hemoglobin 8.6L, Hematocrit 26L, Mean Corpuscular Volume 93, Mean Corpuscular Hemoglobin 31, Mean Corpuscular Hemoglobin Concent 33, Red Cell Distribution Width 13.2, Platelet Count 165, Mean Platelet Volume 10.2, Immature Granulocyte % (Auto) 0, Neutrophils (%) (Auto) 77H, Lymphocytes (%) (Auto) 16, Monocytes (%) (Auto) 6, Eosinophils (%) (Auto) 1, Basophils (%) (Auto) 0, Neutrophils # (Auto) 4.1, Lymphocytes # (Auto) 0.9L, Monocytes # (Auto) 0.3, Eosinophils # (Auto) 0.0, Basophils # (Auto) 0.0, Immature Granulocyte # (Auto) 0.0, Sodium Level 139, Potassium Level 5.0, Chloride Level 105, Carbon Dioxide Level 21, Anion Gap 13, Blood Urea Nitrogen 32H, Creatinine 2.06H, Estimat Glomerular Filtration Rate 33, BUN/Creatinine Ratio 16, Glucose Level 102, Calcium Level 8.7, Corrected Calcium 8.5, Total Bilirubin 0.5, Aspartate Amino Transf (AST/SGOT) 9, Alanine Aminotransferase (ALT/SGPT) 6, Alkaline Phosphatase 106, Total Protein 6.5, Albumin 4.2, Lipase 34 01/20/20 11:13: Urine Color YELLOW, Urine Clarity CLEAR, Urine pH 5.5, Urine Specific [place] > 1.030, Urine Protein 1+H, Urine Glucose (UA) NEGATIVE, Urine Ketones NEGATIVE, Urine Nitrite NEGATIVE, Urine Bilirubin NEGATIVE, Urine Urobilinogen 0.2, Urine Leukocyte Esterase NEGATIVE, Urine RBC (Auto) 1+H, Urine RBC 2-5H, Urine WBC NONE, Urine Crystals NONE, Urine Bacteria NONE, Urine Casts NONE, Urine Mucus NEGATIVE, Urine Culture Indicated NO 01/21/20 06:10: White Blood Count 4.2L, Red Blood Count 2.52L, Hemoglobin 7.8L, Hematocrit 25L, Mean Corpuscular Volume 98, Mean Corpuscular Hemoglobin 31, Mean Corpuscular Hemoglobin Concent 32, Red Cell Distribution Width 13.2, Platelet Count 142, Mean Platelet Volume 10.1, Immature Granulocyte % (Auto) 0, Neutrophils (%) (Auto) 63, Lymphocytes (%) (Auto) 25, Monocytes (%) (Auto) 8, Eosinophils (%) (Auto) 3, Basophils (%) (Auto) 1, Neutrophils # (Auto) 2.6, Lymphocytes # (Auto) 1.1, Monocytes # (Auto) 0.3, Eosinophils # (Auto) 0.1, Basophils # (Auto) 0.0, Immature Granulocyte # (Auto) 0.0, Sodium Level 143, Potassium Level 4.6, Chlo ride Level 112H, Carbon Dioxide Level 22, Anion Gap 9, Blood Urea Nitrogen 25H, Creatinine 2.02H, Estimat Glomerular Filtration Rate 34, BUN/Creatinine Ratio 12, Glucose Level 92, Calcium Level 7.9L, Corrected Calcium 8.1L, Total Bilirubin 0.7, Aspartate Amino Transf (AST/SGOT) 7, Alanine Aminotransferase (ALT/SGPT) 8, Alkaline Phosphatase 80, Total Protein 5.5L, Albumin 3.7 Assessment/Plan Assessment/Plan Problems: (1) Ileus Assessment & Plan: 01/19- Clear liquid diet, start Miralax. If patient starts vomiting, proceed to NPO status. (2) Abdominal pain Qualifiers: Qualified Codes: R10.84 - Generalized abdominal pain Assessment & Plan: 01/19- Continue home medications with appropriate renal dosing adjustments for methadone, pregabalin and dilaudid. (3) Dehydration Assessment & Plan: 01/19- IV fluids, NaCl running 125 MLS/hr. Monitor electrolyt e levels with BMP (4) Crohn disease Assessment & Plan: 01/19- Monitor for possible Crohn's flare. Continue home medications with appropriate renal dosing adjustments as needed. (5) Acute kidney injury Assessment & Plan: 01/19- Appropriate renal dosing of all home medications, IV fluids (6) Anemia Qualifiers: Qualified Codes: D64.9 - Anemia, unspecified Assessment & Plan: 01/19- Continue to monitor hemoglobin levels with CBC. Most likely anemia due to chronic disease. Monitor for acute blood loss. (7) DVT prophylaxis Assessment & Plan: 01/19- Start Lovenox injections. Clinical Quality Measures DVT/VTE Risk/Contraindication: Risk Factor Score Per Nursin RFS Level Per Nursing on Admit: 4+=Very High TELLY GOMEZ MED STUDENT Jan 21, 2020 09:02
[2020-01-21 11:35] VITALS: BP 128/60
--- NOTE | 2020-01-21 13:09 | Discharge Summary ---
TELLY GOMEZ MED STUDENT 01/21/20 1309: Diagnosis/Chief Complaint Date of Admission Jan 20, 2020 at 15:43 Date of Discharge Discharge Date: Jan 21, 2020 Admission Diagnosis Admission Diagnosis Abdominal Pain Discharge Diagnosis Abdominal Pain Reason Hospital Visit CC: Abdominal Pain HPI: Francisco presented to the [place] ER today with a chief complaint of abdominal pain. He stated that the pain started on Saturday. Pt stated that this pain is different than the pain that he normally has with his Crohn's disease. Pt described the pain as "clawing" and rated his pain at 5/10. He stated that the pain has increased in intensity since Saturday, but has not increased in frequency. He also stated that the pain seems to come and go and that it is over the whole abdomen. The pain is better with pain medications, he took methadone and dilaudid last night because he was in so much pain. The pain is worse when he is trying to move around in bed, or when he lays on his back. Discharge Summary Hospital Course Hospital Course Francisco presented to the [place] ED yesterday (01/20/20) with a chief complaint of abdominal pain. He was admitted inpatient to [facility]. He was evaluated and started on Miralax and IV fluids, in addition to his current home medications. During the night, he had multiple bowel movements and by the morning of January 20, his acute abdominal pain had resolved. Francisco stated that the only pain he had felt like the normal chronic pain that he has with his Crohn's disease. He is advised to see his primary care provider regarding follow up and management of his Acute Kidney Injury. Labs Laboratory Tests 01/20/20 11:03: Red Blood Count 2.79L, Hemoglobin 8.6L, Hematocrit 26L, Neutrophils (%) (Auto) 77H, Lymphocytes # (Auto) 0.9L, Blood Urea Nitrogen 32H, Creatinine 2.06H 01/20/20 11:13: Urine Protein 1+H, Urine RBC (Auto) 1+H, Urine RBC 2-5H 01/21/20 06:10: Red Blood Count 2.52L, Hemoglobin 7.8L, Hematocrit 25L, Blood Urea Nitrogen 25H, Creatinine 2.02H, White Blood Count 4.2L, Chloride Level 112H, Calcium Level 7.9L, Corrected Calcium 8.1L, Total Protein 5.5L Procedures None. Discharge Physical Examination Allergies: Coded Allergies: Penicillins (Verified Allergy, Severe, EDEMA, 07/25/19) adhesive tape (Verified Allergy, Severe, RASH, 07/25/19) cefazolin (Verified Allergy, Severe, RASH, 07/25/19) cephalexin (Verified Allergy, Severe, RASH, 07/25/19) morphine (Verified Allergy, Severe, EDEMA, takes Hydromorphone at home, 12/30/19) butabarbital (Verified Allergy, Unknown, 07/25/19) butorphanol (Verified Allergy, Unknown, 07/25/19) ibuprofen (Verified Allergy, Unknown, 07/25/19) piperacillin (Verified Allergy, Unknown, EDEMA, 07/25/19) promethazine (Verified Allergy, Unknown, 07/25/19) silicone (Verified Allergy, Unknown, 07/25/19) zolpidem (Verified Allergy, Unknown, 07/25/19) ofloxacin (Verified Adverse Reaction, Unknown, DIARRHEA, 07/25/19) Vitals & I&Os Vital Signs Date Time Temp Pulse Resp B/P (MAP) Pulse Ox O2 Delivery O2 Flow Rate FiO2 01/21/20 11:35 35.9 69 12 128/60 (82) 94 Room Air General Appearance: Oriented X3, Cooperative HEENT: PERRLA, EOMI Respiratory: Clear to Auscultation, Normal Air Movement Cardiovascular: Regular Rate, No Murmurs Abdominal: Normal Bowel Sounds, Soft, Other (Tenderness with palpation ) Extremities: No Cyanosis, No Edema, Normal Pulses Discharge Home Medications Reviewed and agree with Discharge Medication list on patient's Discharge Instruction sheet Instructions to Patient/Family Please see electronic discharge instructions given to patient. Clinical Quality Measures Admission Status Admission Dx Abdominal Pain Admission Status: Observation DVT/VTE Risk/Contraindication: VTE Addressed: Yes VTE Present on Admission: No Risk Factor Score Per Nursin RFS Level Per Nursing on Admit: 4+=Very High MOODY GARCIA MD 01/24/20 0856: Discharge Summary Discharge Physical Examination Allergies: Coded Allergies: Penicillins (Verified Allergy, Severe, EDEMA, 07/25/19) adhesive tape (Verified Allergy, Severe, RASH, 07/25/19) cefazolin (Verified Allergy, Severe, RASH, 07/25/19) cephalexin (Verified Allergy, Severe, RASH, 07/25/19) morphine (Verified Allergy, Severe, EDEMA, takes Hydromorphone at home, 12/30/19) butabarbital (Verified Allergy, Unknown, 07/25/19) butorphanol (Verified Allergy, Unknown, 07/25/19) ibuprofen (Verified Allergy, Unknown, 07/25/19) piperacillin (Verified Allergy, Unknown, EDEMA, 07/25/19) promethazine (Verified Allergy, Unknown, 07/25/19) silicone (Verified Allergy, Unknown, 07/25/19) zolpidem (Verified Allergy, Unknown, 07/25/19) ofloxacin (Verified Adverse Reaction, Unknown, DIARRHEA, 07/25/19) Supervisory-Addendum Brief Verification & Attestation Participated in pt care: history, MDM, physical Personally performed: exam, history, MDM Care discussed with: Medical Student Procedures: n/a I did my own history and exam which match those documented by the medical student. Abnormal creatinine is still persistent since last admit, needs further work-up outpatient. TELLY GOMEZ MED STUDENT Jan 21, 2020 13:09 MOODY GARCIA MD Jan 24, 2020 08:56
--- NOTE | 2020-01-21 14:14 | NUR ---
"RD ASSESSMENT PMHx: PE; stroke; Crohn's disease; obstructive bowel; hypothyroidism; PT INTERACTION: Pt was awake and pleasant during nutrition assessment. Pt states current appetite is not good, and has been this way for about 3-4d. Note avg PO intake 38% x2meal, per chart review. Pt states following a low-fiber diet at home, and has some issues with chewing/swallowing food. Pt states some recent issues with nausea, constipation, and diarrhea. Note last BM was 01/20, and pt not currently on bowel regimen per chart review. Pt states recent wt loss, but unsure of amount/timeframe. Note recent 13# wt loss x6mon, per chart review. ABNORMAL NUTRITION-RELATED LAB VALUES LOW: Ca 7.9; Pro 5.5; HIGH: Cl 112; BUN 25; cr 2.02; Est. kcal needs: 5659-2482 kcal | 20-25 kcal/kg Est. Pro needs: 77-96 g Pro | 0.8-1.0 g Pro/kg PES STATEMENT: Inadequate oral intake (NI-2.1) related to loss of appetite, nausea, constipation, and diarrhea, as evidenced by pt interview, and avg PO intake 38% x2meal. INTERVENTION: Continue with current diet order of Clear Liquid diet. Pt may benefit from diet advancement, when medically able and as tolerated. Add Ensure Clear to meals TID, for increased kcal intake. Provides 250 kcal and 8 g Pro per serving. Will continue to follow and reassess as pt needs, intake, and status change. Winston GOMES, MS RD [phone] cell"
[2020-01-21 14:15] VITALS: BP 128/60
== END 2020-01-21 14:15 | disposition home or self-care (01) ==
LOC: EDUNIT# 10:09 → ER FS 10:13 → 4TH 15:43
PROVIDERS: ADMIT Family Medicine; ATTEND Family Medicine
DX: R10.84 Generalized abdominal pain (principal); K56.7 Ileus, unspecified; E86.0 Dehydration; K50.90 Crohn's disease, unspecified, without complications; I26.99 Other pulmonary embolism without acute cor pulmonale; E03.9 Hypothyroidism, unspecified; J45.909 Unspecified asthma, uncomplicated; D64.9 Anemia, unspecified; N17.9 Acute kidney failure, unspecified; N18.30 Chronic kidney disease, stage 3 unspecified; D63.1 Anemia in chronic kidney disease; Z91.048 Other nonmedicinal substance allergy status; Z79.899 Other long term (current) drug therapy; Z88.1 Allergy status to other antibiotic agents; Z88.5 Allergy status to narcotic agent; Z88.8 Allergy status to other drugs, medicaments and biological substances; Z88.0 Allergy status to penicillin
CPT/HCPCS: 36415; 74176; 80053 ×2; 81000; 83690; 85025 ×2; 99284; G0378

== ENCOUNTER 2020-04-20 08:35 | Emergency (ER) | payer MEDICARE ==
[~2020-04-20] VITALS: Ht 187.9 cm; Wt 92.9 kg
[~2020-04-20 08:35] MED LIST changes: -LISI-556 PO; +LISI-729 PO; +SPIR50TA PO
--- NOTE | 2020-04-20 08:52 | ED General ---
History of Present Illness Date Seen by Provider: Apr 20, 2020 Time Seen by Provider: 08:50 Initial Comments 64-year-old male sent in for "acute renal failure" patient had an appointment with his physician yesterday and found to have acute on chronic renal failure. Patient himself does not provide much information. Patient has a history of Crohn's disease. He does not state where he is making urine. He seems mildly confused. I am unsure of his baseline. Patient with no acute complaints stated Allergies and Home Medications Allergies Coded Allergies: Penicillins (Verified Allergy, Severe, EDEMA, 07/25/19) adhesive tape (Verified Allergy, Severe, RASH, 07/25/19) cefazolin (Verified Allergy, Severe, RASH, 07/25/19) cephalexin (Verified Allergy, Severe, RASH, 07/25/19) morphine (Verified Allergy, Severe, EDEMA, takes Hydromorphone at home, 12/30/19) butabarbital (Verified Allergy, Unknown, 07/25/19) butorphanol (Verified Allergy, Unknown, 07/25/19) ibuprofen (Verified Allergy, Unknown, 07/25/19) piperacillin (Verified Allergy, Unknown, EDEMA, 07/25/19) promethazine (Verified Allergy, Unknown, 07/25/19) silicone (Verified Allergy, Unknown, 07/25/19) zolpidem (Verified Allergy, Unknown, 07/25/19) ofloxacin (Verified Adverse Reaction, Unknown, DIARRHEA, 07/25/19) Home Medications Acetaminophen 325 Mg Capsule, 650 MG PO Q8H PRN for PAIN-MILD (1-4), (Reported) Azathioprine 50 Mg Tablet, 50 MG PO DAILY, (Reported) Famotidine 20 Mg Tablet, 20 MG PO Q24H Prescribed by: INGE ROMERO on 01/01/20 1142 Hydromorphone HCl 8 Mg Tablet, 8 MG PO Q6H PRN for PAIN-SEVERE (8-10), (Reported) Levothyroxine Sodium 25 Mcg Tablet, 25 MCG PO DAILY, (Reported) Lisinopril 5 Mg Tablet, 5 MG PO DAILY, (Reported) Methadone HCl 10 Mg Tablet, 10 MG PO Q6- 8H, (Reported) Multivitamin 1 Each Tablet, 1 EACH PO DAILY, (Reported) Peg 400/Hypromellose/Glycerin 15 Ml Drops, 2 DROPS OU PRN PRN for DRY EYES, (Reported) Pregabalin 75 Mg Capsule, 75 MG PO TID, (Reported) Temazepam 15 Mg Capsule, 15-30 MG PO HS PRN for SLEEP, (Reported) Terbinafine HCl 250 Mg Tablet, 250 MG PO DAILY, (Reported) Venlafaxine HCl 75 Mg Cap.er.24h, 75 MG PO DAILY, (Reported) TAKES 75MG +150MG TO EQUAL 225MG DAILY Venlafaxine HCl 150 Mg Cap.er.24h, 150 MG PO DAILY, (Reported) TAKES 75MG +150MG TO EQUAL 225MG DAILY Patient Home Medication List Home Medication List Reviewed: Yes Review of Systems Review of Systems Constitutional: see HPI EENTM: no symptoms reported Respiratory: no symptoms reported Cardiovascular: no symptoms reported Gastrointestinal: no symptoms reported Genitourinary: no symptoms reported Musculoskeletal: no symptoms reported Skin: no symptoms reported Past Taxutou-Gwpant-Ggzrrd Hx Past Med/Social Hx: Reviewed Nursing Past Med/Soc Hx Patient Social History 2nd Hand Smoke Exposure: No Recent Hopitalizations: No Immunizations Up To Date Date of Pneumonia Vaccine: Jan 19, 2017 Date of Influenza Vaccine: Nov 14, 2019 Seasonal Allergies Seasonal Allergies: No Past Medical History Surgeries: Yes (X11 ABDOMIAL, EYE) Appendectomy, Bowel Surgery, Eye Surgery, Gallbladder Respiratory: Yes Currently Using CPAP: No Currently Using BIPAP: No Cardiac: Yes (BLOD CLOT, PERICARDITIS) Neurological: Yes (BRAIN STEM STROKE) Stroke Genitourinary: No Gastrointestinal: Yes Crohns Disease, Obstructive Bowel Musculoskeletal: No Endocrine: Yes Hypothyroidsim HEENT: No Cataract Loss of Vision: Denies Hearing Impairment: Denies Cancer: No Psychosocial: No Integumentary: No Blood Disorders: No Family Medical History Asthma Physical Exam Vital Signs Vital Signs - First Documented 04/20/20 08:36 Temp 36.1 Pulse 93 Resp 20 B/P (MAP) 125/51 (75) Pulse Ox 100 O2 Delivery Room Air Capillary Refill : Height, Weight, BMI Height: '" Weight: lbs. oz. 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 Norm as Tested, Other (Patient seems mildly lethargic and confused but am unsure of baseline) Progress/Results/Core Measures Suspected Sepsis SIRS Temperature: Pulse: Respiratory Rate: Laboratory Tests 04/20/20 08:55: White Blood Count 8.7 Blood Pressure / Mean: Laboratory Tests 04/20/20 08:55: Creatinine 9.64H, Platelet Count 261, Total Bilirubin 0.3 Results/Orders Lab Results Laboratory Tests Test 04/20/20 08:55 04/20/20 11:00 Range/Units White Blood Count 8.7 4.3-11.0 10^3/uL Red Blood Count 2.49 L 4.35-5.85 10^6/uL Hemoglobin 7.9 L 13.3-17.7 G/DL Hematocrit 25 L 40-54 % Mean Corpuscular Volume 98 80-99 FL Mean Corpuscular Hemoglobin 32 25-34 PG Mean Corpuscular Hemoglobin Concent 32 32-36 G/DL Red Cell Distribution Width 13.2 10.0-14.5 % Platelet Count 261 130-400 10^3/uL Mean Platelet Volume 10.4 7.4-10.4 FL Immature Granulocyte % (Auto) 1 % Neutrophils (%) (Auto) 69 42-75 % Lymphocytes (%) (Auto) 16 12-44 % Monocytes (%) (Auto) 11 0-12 % Eosinophils (%) (Auto) 3 0-10 % Basophils (%) (Auto) 1 0-10 % Neutrophils # (Auto) 6.0 1.8-7.8 X 10^3 Lymphocytes # (Auto) 1.4 1.0-4.0 X 10^3 Monocytes # (Auto) 1.0 0.0-1.0 X 10^3 Eosinophils # (Auto) 0.2 0.0-0.3 10^3/uL Basophils # (Auto) 0.0 0.0-0.1 10^3/uL Immature Granulocyte # (Auto) 0.1 0.0-0.1 10^3/uL Sodium Level 136 135-145 MMOL/L Potassium Level 4.5 3.6-5.0 MMOL/L Chloride Level 107 98-107 MMOL/L Carbon Dioxide Level 9 *L 21-32 MMOL/L Anion Gap 20 H 5-14 MMOL/L Blood Urea Nitrogen 88 H 7-18 MG/DL Creatinine 9.64 H 0.60-1.30 MG/DL Estimat Glomerular Filtration Rate 6 BUN/Creatinine Ratio 9 Glucose Level 94 70-105 MG/DL Calcium Level 8.9 8.5-10.1 MG/DL Corrected Calcium 8.7 8.5-10.1 MG/DL Magnesium Level 1.5 L 1.6-2.4 MG/DL Total Bilirubin 0.3 0.1-1.0 MG/DL Aspartate Amino Transf (AST/SGOT) 10 5-34 U/L Alanine Aminotransferase (ALT/SGPT) 5 0-55 U/L Alkaline Phosphatase 118 40-136 U/L Total Protein 7.4 6.4-8.2 GM/DL Albumin 4.3 3.2-4.5 GM/DL Urine Color YELLOW Urine Clarity SL CLOUDY Urine pH 5.5 5-9 Urine Specific [place] 1.020 1.016-1.022 Urine Protein 1+ H NEGATIVE Urine Glucose (UA) NEGATIVE NEGATIVE Urine Ketones NEGATIVE NEGATIVE Urine Nitrite NEGATIVE NEGATIVE Urine Bilirubin NEGATIVE NEGATIVE Urine Urobilinogen 0.2 < = 1.0 MG/DL Urine Leukocyte Esterase NEGATIVE NEGATIVE Urine RBC (Auto) 1+ H NEGATIVE Urine RBC 0-2 /HPF Urine WBC 5-10 H /HPF Urine Squamous Epithelial Cells 0-2 /HPF Urine Crystals NONE /LPF Urine Bacteria TRACE /HPF Urine Casts PRESENT /LPF Urine Hyaline Casts /LPF Urine Granular Casts 2-5 H /LPF Urine Coarse Granular Casts 0-2 H /LPF Urine White Blood Cell Casts 0-2 H /LPF Urine Mucus SMALL H /LPF Urine Culture Indicated YES My Orders Orders - LIMON,AMIE L DO Cbc With Automated Diff (04/20/20 08:52) Comprehensive Metabolic Panel (04/20/20 08:52) Magnesium (04/20/20 08:52) Ua Culture If Indicated (04/20/20 08:52) Ct Head Wo (04/20/20 09:26) Lactated Ringers (Lr 1000 Ml Iv Solution (04/20/20 10:23) Urine Culture (04/20/20 11:00) Vital Signs/I&O 04/20/20 08:36 Temp 36.1 Pulse 93 Resp 20 B/P (MAP) 125/51 (75) Pulse Ox 100 O2 Delivery Room Air Capillary Refill : Progress Note : Time: 11:35 Progress Note Patient with acute on chronic renal failure. He will be given a 1 L bolus of IV fluids and then started IV fluids at 150 mL an hour. I did call and discuss with [facility] where patient has been in the past. Patient was accepted and will be transferred via EMS. Diagnostic Imaging Diagonstic Imaging: CT Plain Films/CT/US/NM/MRI: head Comments [facility], [place] NAME: MIRNA RAMIREZ [facility] REC#: [id number] PT STATUS: REG ER : 1955 PHYSICIAN: AMIE LIMON DO ADMIT DATE: 04/20/20/ER FS Draft Date of Exam:04/20/20 CT HEAD WO PROCEDURE: CT head without contrast. TECHNIQUE: Multiple contiguous axial images were obtained through the brain without the use of intravenous contrast. Auto Exposure Controls were utilized during the CT exam to meet ALARA standards for radiation dose reduction. INDICATION: Confusion. COMPARISON: None. FINDINGS: No intracranial hemorrhage, mass effect, hydrocephalus or extra-axial fluid collections. No CT evidence of territorial infarction. Osseous structures are intact. Mastoids are clear. Mucosal thickening in the right maxillary sinus. IMPRESSION: No acute intracranial CT findings. Reviewed: Reviewed by Me, Reviewed/Discussed Departure Impression Primary Impression: Acute on chronic renal failure Qualified Codes: N17.9 - Acute kidney failure, unspecified; N18.9 - Chronic kidney disease, unspecified Disposition: S[facility]-TRM HOSP Condition: Stable Transfer Transfer Reason: Exceeds level of care Transfer Progress Notes Discussed with resident physician Dr. Levine, who patiently excepted for . Patient given IV fluids. Transferred to [facility] in stable condition Transfer Facility: [facility] Method of Transfer: EMS Departure-Patient Inst. Referrals: SELF,HERBERT MCCLURE (PCP/Family) Primary Care Physician AMIE LIMON DO Apr 20, 2020 08:52
[2020-04-20 09:16] LABS: BASOPHILS % (AUTO) 1 % (0-10); EOSINOPHILS % (AUTO) 3 % (0-10); HEMATOCRIT 25 % (40-54); HEMOGLOBIN 7.9 G/DL (13.3-17.7); LYMPHOCYTES % (AUTO) 16 % (12-44); MEAN CORPUSCULAR HEMOGLOBIN 32 PG (25-34); MEAN CORPUSCULAR HGB CONC 32 G/DL (32-36); MEAN CORPUSCULAR VOLUME 98 FL (80-99); MEAN PLATELET VOLUME 10.4 FL (7.4-10.4); MONOCYTES % (AUTO) 11 % (0-12); NEUTROPHILS % (AUTO) 69 % (42-75); PLATELET COUNT 261 10^3/uL (130-400); WHITE BLOOD COUNT 8.7 10^3/uL (4.3-11.0)
[2020-04-20 09:17] LABS: EOSINOPHILS # (AUTO) 0.2 10^3/uL (0.0-0.3); LYMPHOCYTES # (AUTO) 1.4 X 10^3 (1.0-4.0)
[2020-04-20 09:26] LABS: POTASSIUM 4.5 MMOL/L (3.6-5.0)
[2020-04-20 09:27] LABS: ALBUMIN 4.3 GM/DL (3.2-4.5); BILIRUBIN,TOTAL 0.3 MG/DL (0.1-1.0); CALCIUM 8.9 MG/DL (8.5-10.1); CREATININE SERUM 9.64 MG/DL (0.60-1.30); MAGNESIUM 1.5 MG/DL (1.6-2.4); TOTAL PROTEIN 7.4 GM/DL (6.4-8.2)
--- NOTE | 2020-04-20 10:16 | Diagnostic Imaging Report ---
PROCEDURE: CT head without contrast. TECHNIQUE: Multiple contiguous axial images were obtained through the brain without the use of intravenous contrast. Auto Exposure Controls were utilized during the CT exam to meet ALARA standards for radiation dose reduction. INDICATION: Confusion. COMPARISON: None. FINDINGS: No intracranial hemorrhage, mass effect, hydrocephalus or extra-axial fluid collections. No CT evidence of territorial infarction. Osseous structures are intact. Mastoids are clear. Mucosal thickening in the right maxillary sinus. IMPRESSION: No acute intracranial CT findings. Dictated by: Dictated on workstation # [id number]
[2020-04-20] MEDS ORDERED: LACTATED RINGERS 1,000 ML IV STA ×2 (10:23→11:36)
[2020-04-20 11:23] LABS: COLOR,URINE YELLOW
[2020-04-20 11:24] LABS: BACTERIA,URINE TRACE /HPF; BILIRUBIN,URINE NEGATIVE (NEGATIVE); CLARITY,URINE SL CLOUDY; GLUCOSE, URINE (UA) NEGATIVE (NEGATIVE); KETONES,URINE NEGATIVE (NEGATIVE); LEUKOCYTE ESTERASE ,URINE NEGATIVE (NEGATIVE); NITRITE,URINE NEGATIVE (NEGATIVE); PH,URINE 5.5 (5-9); PROTEIN,URINE 1+ (NEGATIVE); RBC,URINE 0-2 /HPF; SQUAMOUS EPITHELIAL CELL,UR 0-2 /HPF
[2020-04-20 11:25] LABS: WHITE BLOOD CELL CASTS, URINE 0-2 /LPF
[2020-04-20 13:45] VITALS: BP 129/78
== END 2020-04-20 13:45 | disposition short-term general hospital (02) ==
LOC: EDUNIT# 08:35 → ER FS 08:42
DX: N17.9 Acute kidney failure, unspecified (principal); N18.9 Chronic kidney disease, unspecified; E03.9 Hypothyroidism, unspecified; K50.90 Crohn's disease, unspecified, without complications; Z86.73 Personal history of transient ischemic attack (TIA), and cerebral infarction without residual deficits; Z79.890 Hormone replacement therapy; Z88.0 Allergy status to penicillin; Z88.1 Allergy status to other antibiotic agents; Z88.5 Allergy status to narcotic agent; Z88.6 Allergy status to analgesic agent; Z88.8 Allergy status to other drugs, medicaments and biological substances
CPT/HCPCS: 36415; 70450; 80053; 81000; 83735; 85025; 87088

== ENCOUNTER → 2020-05-17 | Outpatient (CLI) | payer MEDICARE ==
--- NOTE | 2020-05-17 14:45 | Diagnostic Imaging Report ---
INDICATION: Multiple myeloma, initial staging. TECHNIQUE: The serum blood glucose level at the time of injection was 110 mg/dL. The patient was administered 14.1 mCi of F-18 FDG intravenously in the left antecubital location and whole body PET imaging was performed. Noncontrast CT was also performed for attenuation correction and anatomic correlation. COMPARISON: No prior PET/CT study is available for comparison. FINDINGS: There is symmetric activity throughout the brain. The soft tissues of the neck are unremarkable. No mediastinal or hilar hypermetabolism is identified. No pulmonary parenchymal hypermetabolism is identified. There is physiologic activity throughout the GI and tracts of the abdomen and pelvis. There are innumerable osteolytic lesions throughout the cervical, thoracic, and lumbar spine. There are lytic lesions involving the calvarium as well as bilateral ribs. The findings are consistent with the patient's diagnosis of multiple myeloma. Many of these lesions do show some hypermetabolic activity. A lytic lesion in the upper thoracic spine demonstrated an SUV max of 5.8. A right acetabular lesion is hypermetabolic. There are hypermetabolic rib lesions as well as right humerus and right scapula. There is some mild uptake involving the left femur at an area of sclerosis which may represent bone infarcts. No other suspicious abnormality is seen. IMPRESSION: There are numerous osteolytic lesions throughout the spine, ribs, and calvarium as well as the long bones of the extremities, consistent with the patient's diagnosis of multiple myeloma. Many of these do show hypermetabolism. Dictated by: Dictated on workstation # [id number]
== END ==
LOC: RAD 10:49
PROVIDERS: ATTEND Family Medicine
DX: C90.00 Multiple myeloma not having achieved remission (principal)
CPT/HCPCS: 78816; A9552

== ENCOUNTER 2020-05-26 04:30 | Emergency (ER) | payer MEDICARE ==
[~2020-05-26] VITALS: Ht 188 cm; Wt 92.3 kg
[2020-05-26] MEDS ORDERED: LACTATED RINGERS 1,000 ML IV STA (04:48)
--- NOTE | 2020-05-26 04:48 | ED GI ---
General Chief Complaint: Abdominal/GI Problems Stated Complaint: ABD PAIN History of Present Illness Date Seen by Provider: May 26, 2020 Time Seen by Provider: 04:45 Initial Comments 64-year-old male presents with some left-sided abdominal pain at vomiting. Patient's had one episode of vomiting. Patient is a dialysis patient with Crohn's disease with numerous surgeries. Patient feels like he is kind of backed up. He denies any fevers or chills. Allergies and Home Medications Allergies Coded Allergies: Penicillins (Verified Allergy, Severe, EDEMA, 07/25/19) adhesive tape (Verified Allergy, Severe, RASH, 07/25/19) cefazolin (Verified Allergy, Severe, RASH, 07/25/19) cephalexin (Verified Allergy, Severe, RASH, 07/25/19) morphine (Verified Allergy, Severe, EDEMA, takes Hydromorphone at home, 12/30/19) butabarbital (Verified Allergy, Unknown, 07/25/19) butorphanol (Verified Allergy, Unknown, 07/25/19) ibuprofen (Verified Allergy, Unknown, 07/25/19) piperacillin (Verified Allergy, Unknown, EDEMA, 07/25/19) promethazine (Verified Allergy, Unknown, 07/25/19) silicone (Verified Allergy, Unknown, 07/25/19) zolpidem (Verified Allergy, Unknown, 07/25/19) ofloxacin (Verified Adverse Reaction, Unknown, DIARRHEA, 07/25/19) Home Medications Acetaminophen 325 Mg Capsule, 650 MG PO Q8H PRN for PAIN-MILD (1-4), (Reported) Azathioprine 50 Mg Tablet, 50 MG PO DAILY, (Reported) Famotidine 20 Mg Tablet, 20 MG PO Q24H Prescribed by: INGE ROMERO on 01/01/20 1142 Hydromorphone HCl 8 Mg Tablet, 8 MG PO Q6H PRN for PAIN-SEVERE (8-10), (Reported) Levothyroxine Sodium 25 Mcg Tablet, 25 MCG PO DAILY, (Reported) Lisinopril 5 Mg Tablet, 5 MG PO DAILY, (Reported) Methadone HCl 10 Mg Tablet, 10 MG PO Q6- 8H, (Reported) Multivitamin 1 Each Tablet, 1 EACH PO DAILY, (Reported) Peg 400/Hypromellose/Glycerin 15 Ml Drops, 2 DROPS OU PRN PRN for DRY EYES, (Reported) Pregabalin 75 Mg Capsule, 75 MG PO TID, (Reported) Temazepam 15 Mg Capsule, 15-30 MG PO HS PRN for SLEEP, (Reported) Terbinafine HCl 250 Mg Tablet, 250 MG PO DAILY, (Reported) Venlafaxine HCl 75 Mg Cap.er.24h, 75 MG PO DAILY, (Reported) TAKES 75MG +150MG TO EQUAL 225MG DAILY Venlafaxine HCl 150 Mg Cap.er.24h, 150 MG PO DAILY, (Reported) TAKES 75MG +150MG TO EQUAL 225MG DAILY Patient Home Medication List Home Medication List Reviewed: Yes Review of Systems Review of Systems Constitutional: No chills, No fever Respiratory: Denies Cough, Denies Shortness of Air Cardiovascular: Denies Chest Pain Gastrointestinal: See HPI, Abdominal Pain, Nausea, Vomiting Genitourinary: No Symptoms Reported Musculoskeletal: no symptoms reported Skin: no symptoms reported Psychiatric/Neurological: No Symptoms Reported Endocrine: No Symptoms Reported Past Dzzpulp-Oucsrw-Rtbgwm Hx Past Med/Social Hx: Reviewed Nursing Past Med/Soc Hx Patient Social History Alcohol Use: Denies Use Smoking Status: Never a Smoker 2nd Hand Smoke Exposure: No Recent Hopitalizations: No Immunizations Up To Date Date of Pneumonia Vaccine: Jan 19, 2017 Date of Influenza Vaccine: Nov 14, 2019 Seasonal Allergies Seasonal Allergies: No Past Medical History Surgeries: Yes (X11 ABDOMIAL, EYE) Appendectomy, Bowel Surgery, Eye Surgery, Gallbladder Respiratory: Yes Currently Using CPAP: No Currently Using BIPAP: No Cardiac: Yes (BLOD CLOT, PERICARDITIS) Deep Vein Thrombosis, Pericarditis Neurological: Yes (BRAIN STEM STROKE) Stroke Genitourinary: Yes Renal Failure, Dialysis Gastrointestinal: Yes Crohns Disease, Obstructive Bowel Musculoskeletal: No Endocrine: Yes Hypothyroidsim HEENT: No Cataract Loss of Vision: Denies Hearing Impairment: Denies Cancer: Yes Psychosocial: No Integumentary: No Blood Disorders: Yes Family Medical History Asthma Physical Exam Vital Signs Vital Signs - First Documented 05/26/20 04:41 Temp 37.2 Pulse 102 Resp 16 B/P (MAP) 156/89 (111) Pulse Ox 96 O2 Delivery Room Air Capillary Refill : Height/Weight/BMI Height: '" Weight: lbs. oz. kg; 26.00 BMI Method: General Appearance: mild distress Neck: non-tender Respiratory: lungs clear, normal breath sounds Cardiovascular: normal peripheral pulses, regular rate, rhythm Gastrointestinal: soft, tenderness (Left upper and lower quadrant), other (Numerous abdominal scars from previous surgery) Extremities: normal range of motion, non-tender Neurologic/Psychiatric: alert, normal mood/affect, oriented x 3 Skin: warm/dry Progress/Results/Core Measures Results/Orders Lab Results Laboratory Tests Test 05/26/20 04:50 Range/Units White Blood Count 10.0 4.3-11.0 10^3/uL Red Blood Count 3.21 L 4.35-5.85 10^6/uL Hemoglobin 9.6 L 13.3-17.7 G/DL Hematocrit 29 L 40-54 % Mean Corpuscular Volume 91 80-99 FL Mean Corpuscular Hemoglobin 30 25-34 PG Mean Corpuscular Hemoglobin Concent 33 32-36 G/DL Red Cell Distribution Width 15.9 H 10.0-14.5 % Platelet Count 223 130-400 10^3/uL Mean Platelet Volume 9.6 7.4-10.4 FL Immature Granulocyte % (Auto) 1 % Neutrophils (%) (Auto) 84 H 42-75 % Lymphocytes (%) (Auto) 7 L 12-44 % Monocytes (%) (Auto) 7 0-12 % Eosinophils (%) (Auto) 2 0-10 % Basophils (%) (Auto) 1 0-10 % Neutrophils # (Auto) 8.4 H 1.8-7.8 X 10^3 Lymphocytes # (Auto) 0.7 L 1.0-4.0 X 10^3 Monocytes # (Auto) 0.7 0.0-1.0 X 10^3 Eosinophils # (Auto) 0.2 0.0-0.3 10^3/uL Basophils # (Auto) 0.1 0.0-0.1 10^3/uL Immature Granulocyte # (Auto) 0.1 0.0-0.1 10^3/uL Neutrophils % (Manual) 78 % Lymphocytes % (Manual) 8 % Monocytes % (Manual) 7 % Eosinophils % (Manual) 1 % Band Neutrophils 6 % Poikilocytosis 1+ Elliptocytes SLIGHT Erythrocyte Sedimentation Rate 86 H 0-30 MM/HR Sodium Level 145 135-145 MMOL/L Potassium Level 3.8 3.6-5.0 MMOL/L Chloride Level 104 98-107 MMOL/L Carbon Dioxide Level 27 21-32 MMOL/L Anion Gap 14 5-14 MMOL/L Blood Urea Nitrogen 35 H 7-18 MG/DL Creatinine 5.68 #H 0.60-1.30 MG/DL Estimat Glomerular Filtration Rate 10 BUN/Creatinine Ratio 6 Glucose Level 120 H 70-105 MG/DL Calcium Level 8.2 L 8.5-10.1 MG/DL Corrected Calcium 8.4 L 8.5-10.1 MG/DL Total Bilirubin 0.5 0.1-1.0 MG/DL Aspartate Amino Transf (AST/SGOT) 9 5-34 U/L Alanine Aminotransferase (ALT/SGPT) 6 0-55 U/L Alkaline Phosphatase 77 40-136 U/L C-Reactive Protein 5.02 H <0.50 MG/DL Total Protein 6.7 6.4-8.2 GM/DL Albumin 3.8 3.2-4.5 GM/DL Lipase 55 8-78 U/L My Orders Orders - LIMON,AMIE L DO Cbc With Automated Diff (05/26/20 04:48) Comprehensive Metabolic Panel (05/26/20 04:48) Lipase (05/26/20 04:48) Ua Culture If Indicated (05/26/20 04:48) Erythrocyte Sedimentation Rate (05/26/20 04:48) Crp Fs (05/26/20 04:48) Ondansetron Injection (Zofran Injectio (05/26/20 05:00) Lactated Ringers (Lr 1000 Ml Iv Solution (05/26/20 04:48) Ct Abdomen/Pelvis Wo (05/26/20 04:51) Manual Differential (05/26/20 04:50) Fentanyl Inj (Sublimaze Injection) (05/26/20 05:45) Methylprednisolone Sod Succ (Solu-Medrol (05/26/20 05:45) Medications Given in ED Current Medications Medications Dose Ordered Sig/Ceasar Route Start Time Stop Time Status Last Admin Dose Admin Fentanyl Citrate 75 mcg ONCE ONCE IVP 05/26/20 05:45 05/26/20 05:46 DC 05/26/20 05:51 75 MCG Methylprednisolone Sodium Succinate 125 mg ONCE ONCE IVP 05/26/20 05:45 05/26/20 05:46 DC 05/26/20 05:50 125 MG Ondansetron HCl 4 mg ONCE ONCE IVP 05/26/20 05:00 05/26/20 05:01 DC 05/26/20 04:57 4 MG Vital Signs/I&O 05/26/20 04:41 Temp 37.2 Pulse 102 Resp 16 B/P (MAP) 156/89 (111) Pulse Ox 96 O2 Delivery Room Air Progress Progress Note : Progress Note Patient reports he feels like his bowels are start to move little better. CT shows no bowel obstruction. It does show mild inflammatory enteritis consistent with his Crohn's. Patient has prednisone Zofran and Phenergan at home for nausea. Patient would like to try going home and see if things improve. If not he will return for further evaluation and possible admission Diagnostic Imaging Diagonstic Imaging: CT Plain Films/CT/US/NM/MRI: abdomen Comments Inflammatory enteritis consistent with Crohn's disease Lytic lesions consistent with multiple myeloma Reviewed: [facility] Impression Primary Impression: Crohn disease Qualified Codes: K50.919 - Crohn's disease, unspecified, with unspecified complications Additional Impressions: Multiple myeloma Qualified Codes: C90.00 - Multiple myeloma not having achieved remission Dependence on renal dialysis Disposition: HOME, SELF-CARE Condition: Stable Departure-Patient Inst. Referrals: SELF,HERBERT MCCLURE (PCP/Family) Primary Care Physician Patient Instructions: Inflammatory Bowel Disease (DC) Add. Discharge Instructions: Clear liquid diet, advance as tolerated Return to the ER as needed Follow-up with your primary care provider in 3 to 4 days for recheck of today's symptoms All discharge instructions reviewed with patient and/or family. Voiced understanding. AMIE LIMON DO May 26, 2020 04:48
[2020-05-26] MEDS ORDERED: ONDANSETRON 4 MG/2 ML (SDV) Z0FRAN IVP ONE (05:00)
[2020-05-26 05:20] LABS: BASOPHILS % (AUTO) 1 % (0-10); EOSINOPHILS % (AUTO) 2 % (0-10); HEMATOCRIT 29 % (40-54); HEMOGLOBIN 9.6 G/DL (13.3-17.7); LYMPHOCYTES % (AUTO) 7 % (12-44); MEAN CORPUSCULAR HEMOGLOBIN 30 PG (25-34); MEAN CORPUSCULAR HGB CONC 33 G/DL (32-36); MEAN CORPUSCULAR VOLUME 91 FL (80-99); MEAN PLATELET VOLUME 9.6 FL (7.4-10.4); MONOCYTES % (AUTO) 7 % (0-12); NEUTROPHILS % (AUTO) 84 % (42-75); PLATELET COUNT 223 10^3/uL (130-400)
[2020-05-26 05:21] LABS: BASOPHILS # (AUTO) 0.1 10^3/uL (0.0-0.1); EOSINOPHILS # (AUTO) 0.2 10^3/uL (0.0-0.3); LYMPHOCYTES # (AUTO) 0.7 X 10^3 (1.0-4.0); MONOCYTES # (AUTO) 0.7 X 10^3 (0.0-1.0); NEUTROPHILS # (AUTO) 8.4 X 10^3 (1.8-7.8)
[2020-05-26 05:36] LABS: BAND NEUTROPHILS 6 %; ELLIPT/OVALOCYTES SLIGHT; EOSINOPHILS % (MANUAL) 1 %; LYMPHOCYTES % (MANUAL) 8 %; MONOCYTES % (MANUAL) 7 %; NEUTROPHILS % (MANUAL) 78 %; POIKILOCYTOSIS 1+
[2020-05-26 05:37] LABS: ERYTHROCYTE SEDIMENTATION RATE 86 MM/HR (0-30); POTASSIUM 3.8 MMOL/L (3.6-5.0)
[2020-05-26 05:38] LABS: ALBUMIN 3.8 GM/DL (3.2-4.5); BILIRUBIN,TOTAL 0.5 MG/DL (0.1-1.0); CALCIUM 8.2 MG/DL (8.5-10.1); CREATININE SERUM 5.68 MG/DL (0.60-1.30); TOTAL PROTEIN 6.7 GM/DL (6.4-8.2)
[2020-05-26] MEDS ORDERED: fentaNYL INJ 100 MCG/2 ML AMP IVP ONE (05:45)
[2020-05-26] MEDS ORDERED: methylPREDNISolone 125 MG (Solu-MEDROL) VIAL IVP ONE (05:45)
--- NOTE | 2020-05-26 06:47 | Diagnostic Imaging Report ---
EXAMINATION: CT Abdomen Pelvis without contrast. TECHNIQUE: Multiple contiguous axial images were obtained through the abdomen and pelvis without the use of intravenous contrast. All CT scans use one or more of the following dose optimizing techniques: automated exposure control, MA and/or KvP adjustment based on a patient size and exam type, or iterative reconstruction. HISTORY: Abdominal pain, history of Crohn's disease. COMPARISON: CT abdomen pelvis 01/20/2020 FINDINGS: Lung bases: Bibasilar dependent atelectasis. Solid organs: The liver is normal. The gallbladder is surgically absent. There is no biliary ductal dilation. Pancreas is normal. Spleen is normal. Adrenal glands are normal. The kidneys are normal without visualized calculus or hydronephrosis. Bowel: Long segment of small bowel wall thickening and surrounding inflammatory stranding within the left upper quadrant. No bowel obstruction. Surgical changes from partial colectomy. Peritoneum: There is mild abdominal ascites and prominent mesenteric inflammatory fat stranding. No loculated fluid collection or intra-abdominal free air. No suspicious lymphadenopathy. Vasculature: Calcification of the aorta without aneurysm. Musculoskeletal: There is a mottled, lytic appearance throughout the osseous structures which did have a similar appearance on a prior CT from 01/20/2020. Multilevel degenerative changes of the spine without acute compression fracture. Pelvis: The prostate gland is normal. The urinary bladder is normal. IMPRESSION: 1. Long segment of small bowel wall thickening and surrounding inflammatory stranding within the left upper abdomen compatible with inflammatory enteritis given history of Crohn's disease. Infectious enteritis could have a similar appearance. 2. Mild ascites which may be reactive. 3. Redemonstrated lytic appearance throughout the osseous structures compatible with history of multiple myeloma. 4. Agree with preliminary interpretation. Dictated by: Dictated on workstation # [id number]
[2020-05-26 06:52] VITALS: BP 159/72
[2020-05-26] MEDS ORDERED: HEParin (CENTRAL IV FLUSH) 500 UNIT/5 ML SYR IV ONE (07:00)
== END 2020-05-26 06:52 | disposition home or self-care (01) ==
LOC: EDUNIT# 04:30 → ER FS 04:34
DX: C90.00 Multiple myeloma not having achieved remission (principal); K50.90 Crohn's disease, unspecified, without complications; I10 Essential (primary) hypertension; E03.9 Hypothyroidism, unspecified; Z99.2 Dependence on renal dialysis; Z88.0 Allergy status to penicillin; Z88.1 Allergy status to other antibiotic agents; Z88.5 Allergy status to narcotic agent; Z88.8 Allergy status to other drugs, medicaments and biological substances; Z88.6 Allergy status to analgesic agent; Z86.73 Personal history of transient ischemic attack (TIA), and cerebral infarction without residual deficits; Z79.890 Hormone replacement therapy
CPT/HCPCS: 36415; 36556; 74176; 80053; 83690; 85007; 85027; 85652; 86141

== ENCOUNTER 2020-07-31 12:57 | Emergency (ER) | payer MEDICARE ==
[~2020-07-31] VITALS: Ht 187.9 cm; Wt 90.0 kg
[2020-07-31 13:31] LABS: HEMATOCRIT 23 % (40-54); HEMOGLOBIN 7.2 G/DL (13.3-17.7); MEAN CORPUSCULAR HEMOGLOBIN 32 PG (25-34); MEAN CORPUSCULAR HGB CONC 31 G/DL (32-36); MEAN CORPUSCULAR VOLUME 104 FL (80-99); PLATELET COUNT 136 10^3/uL (130-400); WHITE BLOOD COUNT 4.8 10^3/uL (4.3-11.0)
[2020-07-31 13:32] LABS: BASOPHILS % (AUTO) 0 % (0-10); EOSINOPHILS # (AUTO) 0.3 10^3/uL (0.0-0.3); EOSINOPHILS % (AUTO) 6 % (0-10); LYMPHOCYTES # (AUTO) 0.3 X 10^3 (1.0-4.0); LYMPHOCYTES % (AUTO) 7 % (12-44); MEAN PLATELET VOLUME 10.1 FL (7.4-10.4); MONOCYTES # (AUTO) 0.4 X 10^3 (0.0-1.0); MONOCYTES % (AUTO) 8 % (0-12); NEUTROPHILS # (AUTO) 3.8 X 10^3 (1.8-7.8); NEUTROPHILS % (AUTO) 79 % (42-75)
[2020-07-31 13:47] LABS: ALANINE AMINOTRANSFERASE 5 U/L (0-55); ALBUMIN 3.5 GM/DL (3.2-4.5); ALKALINE PHOSPHATASE 79 U/L (40-136); BILIRUBIN,TOTAL 0.6 MG/DL (0.1-1.0); BUN/CREATININE RATIO 7; CALCIUM 6.6 MG/DL (8.5-10.1); CARBON DIOXIDE 22 MMOL/L (21-32); CHLORIDE 104 MMOL/L (98-107); CREATININE SERUM 7.57 MG/DL (0.60-1.30); GFR ESTIMATED 7; GLUCOSE 127 MG/DL (70-105); POTASSIUM 5.4 MMOL/L (3.6-5.0); SODIUM 142 MMOL/L (135-145); TOTAL PROTEIN 6.5 GM/DL (6.4-8.2)
--- NOTE | 2020-07-31 13:52 | Diagnostic Imaging Report ---
Clinical indication: Patient with shortness of air. Exam: Portable chest x-ray upright view. Comparisons: Chest x-ray dated 12/29/2019j` Findings: There is interval development of a moderate amount of diffuse patchy lung infiltrates throughout both lungs. Stable blunting of left costophrenic angle which may be related to scarring. There is no right pleural effusion. Pulmonary vasculature is partially obscured. Cardiac silhouette is within normal limits. There are degenerative spurs involving the thoracic spine. Port-A-Cath seen overlying the right chest again seen in the distal superior vena cava. Interval placement of vascular access catheter overlying the right chest region. Impression: 1: There is interval development of diffuse bilateral lung infiltrates. 2: Interval placement of vascular access catheter on left side in good position. 3: Pulmonary vasculature does not appear significantly congested and the heart size is within normal limits. Dictated by: Dictated on workstation # [id number]
[2020-07-31 13:55] LABS: EOSINOPHILS % (MANUAL) 4 %; LYMPHOCYTES % (MANUAL) 7 %; MONOCYTES % (MANUAL) 3 %; NEUTROPHILS % (MANUAL) 86 %
[2020-07-31 13:56] LABS: ELLIPT/OVALOCYTES SLIGHT; HYPOCHROMASIA SLIGHT; POLYCHROMASIA MODERATE; TOXIC GRANULATION/VACUOLAZATIO 1+
--- NOTE | 2020-07-31 14:31 | ED Respiratory ---
General Chief Complaint: Respiratory Problems Stated Complaint: SOB | COUGH Nursing Triage Note: Pt arrival and assisted with WC for c/o SOA. Pt has has Home O2 x 1 week for new hypoxia diagnosis at rest. Pt to wear 2 L/M per n.c. 24hrs/7days/week. Pt states he awoke "gurgling". Source: patient History of Present Illness Date Seen by Provider: Jul 31, 2020 Time Seen by Provider: 13:00 Initial Comments Patient is a 64-year-old male with history of Crohn's disease, multiple myeloma, end-stage renal disease on dialysis who presents with shortness of breath. Patient states he has been on home oxygen for 1 week and that he woke up this morning with shortness of breath. He reports gurgling respirations which have since improved. He denies cough, sore throat, fever, chills, nausea vomiting or sweats. He denies increased leg pain or swelling. Patient dialyzes Saturday, Saturday and Saturday and reports completing a full dialysis session 2 days ago. Patient still makes urine. Patient is a DNR and is in the process of enrolling in hospice. Timing/Duration: just prior to arrival Severity: moderate Prior Episodes/Possible Cause: other Modifying Factors: Improves With Other Associated Symptoms: other Allergies and Home Medications Allergies Coded Allergies: Penicillins (Verified Allergy, Severe, EDEMA, 07/25/19) adhesive tape (Verified Allergy, Severe, RASH, 07/25/19) cefazolin (Verified Allergy, Severe, RASH, 07/25/19) cephalexin (Verified Allergy, Severe, RASH, 07/25/19) morphine (Verified Allergy, Severe, EDEMA, takes Hydromorphone at home, 12/30/19) butabarbital (Verified Allergy, Unknown, 07/25/19) butorphanol (Verified Allergy, Unknown, 07/25/19) ibuprofen (Verified Allergy, Unknown, 07/25/19) piperacillin (Verified Allergy, Unknown, EDEMA, 07/25/19) promethazine (Verified Allergy, Unknown, 07/25/19) silicone (Verified Allergy, Unknown, 07/25/19) zolpidem (Verified Allergy, Unknown, 07/25/19) ofloxacin (Verified Adverse Reaction, Unknown, DIARRHEA, 07/25/19) Home Medications Acetaminophen 325 Mg Capsule, 650 MG PO Q8H PRN for PAIN-MILD (1-4), (Reported) Azathioprine 50 Mg Tablet, 50 MG PO DAILY, (Reported) Famotidine 20 Mg Tablet, 20 MG PO Q24H Prescribed by: INGE ROMERO on 01/01/20 1142 Hydromorphone HCl 8 Mg Tablet, 8 MG PO Q6H PRN for PAIN-SEVERE (8-10), (Reported) Levothyroxine Sodium 25 Mcg Tablet, 25 MCG PO DAILY, (Reported) Lisinopril 5 Mg Tablet, 5 MG PO DAILY, (Reported) Methadone HCl 10 Mg Tablet, 10 MG PO Q6- 8H, (Reported) Multivitamin 1 Each Tablet, 1 EACH PO DAILY, (Reported) Peg 400/Hypromellose/Glycerin 15 Ml Drops, 2 DROPS OU PRN PRN for DRY EYES, (Reported) Pregabalin 75 Mg Capsule, 75 MG PO TID, (Reported) Temazepam 15 Mg Capsule, 15-30 MG PO HS PRN for SLEEP, (Reported) Terbinafine HCl 250 Mg Tablet, 250 MG PO DAILY, (Reported) Venlafaxine HCl 75 Mg Cap.er.24h, 75 MG PO DAILY, (Reported) TAKES 75MG +150MG TO EQUAL 225MG DAILY Venlafaxine HCl 150 Mg Cap.er.24h, 150 MG PO DAILY, (Reported) TAKES 75MG +150MG TO EQUAL 225MG DAILY Patient Home Medication List Home Medication List Reviewed: Yes Review of Systems Review of Systems Constitutional: see HPI EENTM: see HPI Respiratory: see HPI Cardiovascular: see HPI Gastrointestinal: see HPI Genitourinary: see HPI Musculoskeletal: see HPI Skin: see HPI Psychiatric/Neurological: See HPI Hematologic/Lymphatic: See HPI Immunological/Allergic: see HPI All Other Systems Reviewed Negative Unless Noted: Yes Past Aqwjprx-Jxwskz-Irqgoh Hx Past Med/Social Hx: Reviewed Nursing Past Med/Soc Hx Patient Social History Alcohol Use: Denies Use Smoking Status: Never a Smoker 2nd Hand Smoke Exposure: No Recent Infectious Disease Expo: No Recent Hopitalizations: No Immunizations Up To Date Date of Pneumonia Vaccine: Jan 19, 2017 Date of Influenza Vaccine: Nov 14, 2019 Seasonal Allergies Seasonal Allergies: No Past Medical History Surgeries: Yes (X11 ABDOMINAL, EYE) Appendectomy, Bowel Surgery, Eye Surgery, Gallbladder Respiratory: Yes (HYPOXIA DX ON O2@ 2L/M) Currently Using CPAP: No Currently Using BIPAP: No Cardiac: Yes (BLOOD CLOT, PERICARDITIS) Deep Vein Thrombosis, Pericarditis Neurological: Yes (BRAIN STEM STROKE) Stroke Genitourinary: Yes Renal Failure, Dialysis Gastrointestinal: Yes Crohns Disease, Obstructive Bowel Musculoskeletal: No Endocrine: Yes Hypothyroidsim HEENT: No Cataract Loss of Vision: Denies Hearing Impairment: Denies Cancer: Yes Psychosocial: No Integumentary: No Blood Disorders: Yes Family Medical History Asthma Physical Exam Vital Signs - First Documented 07/31/20 13:05 Temp 36.6 Pulse 99 Resp 15 B/P (MAP) 164/78 (106) O2 Delivery Nasal Cannula O2 Flow Rate 2.00 Capillary Refill : Less Than 3 Seconds Height: '" Weight: lbs. oz. kg; 25.00 BMI Method: General Appearance: no apparent distress Eyes: Bilateral Eye Normal Inspection, Bilateral Eye PERRL, Bilateral Eye EOMI HEENT: PERRL/EOMI, normal ENT inspection, pharynx normal Neck: supple Respiratory: no respiratory distress, decreased breath sounds, rhonchi Cardiovascular: regular rate, rhythm Gastrointestinal: soft, other Genital/Rectal: other Extremities: no pedal edema Neurologic/Psychiatric: no motor/sensory deficits, alert, oriented x 3, disoriented x 3 Skin: warm/dry, other Focused Exam Sepsis Stage: Ruled Out Lactate Level 07/31/20 13:27: Lactic Acid Level 1.34 Lactic Acid Level Laboratory Tests Test 07/31/20 13:27 Lactic Acid Level 1.34 MMOL/L (0.50-2.00) Progress/Results/Core Measures Suspected Sepsis Recent Fever Within 48 Hours: No Infection Criteria Present: None New/Unexplained Altered Menta: No Sepsis Screen: No Definite Risk SIRS Temperature: Pulse: 99 Respiratory Rate: 15 Laboratory Tests 07/31/20 13:27: White Blood Count 4.8 Blood Pressure 164 /78 Mean: 106 07/31/20 13:27: Lactic Acid Level 1.34 Laboratory Tests 07/31/20 13:27: Creatinine 7.57#H, Platelet Count 136, Total Bilirubin 0.6 Results/Orders Lab Results Laboratory Tests Test 07/31/20 13:27 Range/Units White Blood Count 4.8 4.3-11.0 10^3/uL Red Blood Count 2.25 L 4.35-5.85 10^6/uL Hemoglobin 7.2 L 13.3-17.7 G/DL Hematocrit 23 L 40-54 % Mean Corpuscular Volume 104 H 80-99 FL Mean Corpuscular Hemoglobin 32 25-34 PG Mean Corpuscular Hemoglobin Concent 31 L 32-36 G/DL Red Cell Distribution Width 17.6 H 10.0-14.5 % Platelet Count 136 130-400 10^3/uL Mean Platelet Volume 10.1 7.4-10.4 FL Immature Granulocyte % (Auto) 1 % Neutrophils (%) (Auto) 79 H 42-75 % Lymphocytes (%) (Auto) 7 L 12-44 % Monocytes (%) (Auto) 8 0-12 % Eosinophils (%) (Auto) 6 0-10 % Basophils (%) (Auto) 0 0-10 % Neutrophils # (Auto) 3.8 1.8-7.8 X 10^3 Lymphocytes # (Auto) 0.3 L 1.0-4.0 X 10^3 Monocytes # (Auto) 0.4 0.0-1.0 X 10^3 Eosinophils # (Auto) 0.3 0.0-0.3 10^3/uL Basophils # (Auto) 0.0 0.0-0.1 10^3/uL Immature Granulocyte # (Auto) 0.0 0.0-0.1 10^3/uL Neutrophils % (Manual) 86 % Lymphocytes % (Manual) 7 % Monocytes % (Manual) 3 % Eosinophils % (Manual) 4 % Toxic Granulation 1+ Polychromasia MODERATE Hypochromasia SLIGHT Elliptocytes SLIGHT Sodium Level 142 135-145 MMOL/L Potassium Level 5.4 H 3.6-5.0 MMOL/L Chloride Level 104 98-107 MMOL/L Carbon Dioxide Level 22 21-32 MMOL/L Anion Gap 16 H 5-14 MMOL/L Blood Urea Nitrogen 51 H 7-18 MG/DL Creatinine 7.57 #H 0.60-1.30 MG/DL Estimat Glomerular Filtration Rate 7 BUN/Creatinine Ratio 7 Glucose Level 127 H 70-105 MG/DL Lactic Acid Level 1.34 0.50-2.00 MMOL/L Calcium Level 6.6 L 8.5-10.1 MG/DL Corrected Calcium 7.0 L 8.5-10.1 MG/DL Magnesium Level 2.0 1.6-2.4 MG/DL Total Bilirubin 0.6 0.1-1.0 MG/DL Aspartate Amino Transf (AST/SGOT) 12 5-34 U/L Alanine Aminotransferase (ALT/SGPT) 5 0-55 U/L Alkaline Phosphatase 79 40-136 U/L Troponin I < 0.30 <0.30 NG/ML Total Protein 6.5 6.4-8.2 GM/DL Albumin 3.5 3.2-4.5 GM/DL My Orders Orders - SREE TALAVERA DO Cbc With Automated Diff (07/31/20 13:12) Comprehensive Metabolic Panel (07/31/20 13:12) Chest 1 View Ap/Pa Only (07/31/20 13:12) Troponin I Fs (07/31/20 13:12) Ekg Tracing (07/31/20 13:12) Magnesium (07/31/20 13:12) Manual Differential (07/31/20 13:27) Lactic Acid Analyzer (07/31/20 14:31) Blood Culture (07/31/20 14:31) Ct Chest Wo (07/31/20 14:31) Doxycycline Hyclate Tablet (Vibramycin T (07/31/20 16:15) Vital Signs/I&O 07/31/20 13:05 Temp 36.6 Pulse 99 Resp 15 B/P (MAP) 164/78 (106) O2 Delivery Nasal Cannula O2 Flow Rate 2.00 Capillary Refill : Less Than 3 Seconds Blood Pressure Mean: 106 Departure Communication (Admissions) Chest x-ray: Bilateral patchy infiltrates. CT chest: Diffuse bilateral patchy infiltrates, lymphadenopathy, infectious versus inflammatory. Multiple osteolytic lesions. Complete radiology report reviewed. Patient with dyspnea with multiple myeloma abnormal chest x-ray. Patient is afebrile does not require increased oxygen. He maintains O2 saturation greater than 95% on 2 L. He states he feels better than this morning and requests discharge home. Etiology is not clear. IV contrast is contraindicated. Doxycycline given for possible pneumonic infiltrates. Patient has follow-up plans with his PCP tomorrow and oncologist later this week. Return precautions reviewed. Patient verbalizes understanding agreement discharge instructions prior to departure. Impression Primary Impression: Dyspnea Additional Impressions: Pneumonitis Multiple myeloma Disposition: HOME, SELF-CARE Condition: Improved Departure-Patient Inst. Decision time for Depature: 16:18 Referrals: HERBERT DAO MD (PCP/Family) Primary Care Physician Patient Instructions: Pneumonitis (DC) Add. Discharge Instructions: You were evaluated in the emergency department for shortness of breath. EKG lab and imaging studies were performed. The exact cause of your symptoms has not been determined but may be related to Ultima myeloma versus possible infection. Please continue home medications, oxygen use and take antibiotics as directed. Follow-up with your PCP tomorrow as scheduled and your oncologist later this week. Return to the ED if new or worsening symptoms. All discharge instructions reviewed with patient and/or family. Voiced understanding. Scripts Doxycycline Hyclate (Doxycycline Hyclate) 100 Mg Tablet 100 MG PO BID, #60 TAB Prov: SREE TALAVERA DO 07/31/20 SREE TALAVERA DO Jul 31, 2020 14:31
--- NOTE | 2020-07-31 15:48 | Diagnostic Imaging Report ---
CLINICAL INDICATION: Patient with multiple myeloma and shortness of breath. EXAM: CT scan of the chest performed without IV contrast. Sagittal and coronal reformatted images were created. All CT scans use one or more of the following dose optimizing techniques: automated exposure control, MA and/or KvP adjustment based on patient size and exam type or iterative reconstruction. COMPARISON: Whole-body PET/CT scan dated 05/17/2020. FINDINGS: There is diffuse patchy groundglass opacification throughout both lungs, which is worse in the right upper lobe/right lung apex region. There is also patchy areas of denser consolidation in left lung apex. There is interlobular septal thickening involving the lung apices and lung bases. There are small bilateral pleural effusions. There is mild atelectasis involving the posterior aspects of both lungs. Pulmonary bronchi show no significant abnormality. There are multiple prominent left nodes in the mediastinal and hilar region. Vascular access catheter seen overlying left chest with tip in the midsuperior vena cava region. Partially visualized right central line seen. There are numerous lytic lesions of varying sizes seen throughout the axial skeleton. This correlates with patient's history of multiple myeloma. There is no definite acute fracture seen. There is no axillary lymphadenopathy. Visualized portions of the upper abdomen show no significant abnormality. There is a small amount of fluid within the mid thoracic esophagus. Gynecomastia noted, bilaterally. There are hypertrophic spurs involving the thoracic spine. IMPRESSION: 1: There are diffuse patchy lung opacities and infiltrates seen throughout both lungs with right upper lobe affected the most. These findings may be related to infectious or inflammatory process. Pulmonary congestion may also be considered. There is lymphadenopathy. 2: There is interlobular septal thickening seen bilaterally and small bilateral pleural effusions which may be related to pulmonary congestion. 3: There is numerous lytic lesions seen throughout the visualized axial skeleton which may be related to multiple myeloma. Dictated by: Dictated on workstation # [id number]
[2020-07-31] MEDS ORDERED: HEParin (CENTRAL IV FLUSH) 500 UNIT/5 ML SYR IV ONE (16:15)
[2020-07-31] MEDS ORDERED: DOXYCYCLINE 100 MG (VIBRAMYCIN) TABLET PO SCH (16:15)
[2020-07-31] MEDS ORDERED: DOXY100T2 PO (16:19)
[2020-07-31 16:24] VITALS: BP 149/85
== END 2020-07-31 16:24 | disposition home or self-care (01) ==
LOC: EDUNIT# 12:57 → ER FS 13:00
DX: R06.00 Dyspnea, unspecified (principal); J18.9 Pneumonia, unspecified organism; C90.00 Multiple myeloma not having achieved remission; E03.9 Hypothyroidism, unspecified; K50.90 Crohn's disease, unspecified, without complications; N18.6 End stage renal disease; Z86.73 Personal history of transient ischemic attack (TIA), and cerebral infarction without residual deficits; Z79.890 Hormone replacement therapy; Z79.899 Other long term (current) drug therapy
CPT/HCPCS: 36415; 71045; 71250; 80053; 83605; 83735; 84484; 85007; 85027; 87040; 93005

== ENCOUNTER → 2020-08-03 | Outpatient (CLI) | payer MEDICARE ==
[~2020-08-03] MED LIST changes: +DOXY100T2 PO
== END ==
LOC: CARD 15:00
PROVIDERS: ATTEND Family Medicine
DX: I08.0 Rheumatic disorders of both mitral and aortic valves (principal)
CPT/HCPCS: 93306

== ENCOUNTER 2020-08-04 10:48 | Outpatient (RCR) | payer MEDICARE ==
[2020-05-09 16:34] LABS: BASOPHILS % (AUTO) 0 % (0-10); EOSINOPHILS # (AUTO) 0.2 10^3/uL (0.0-0.3); EOSINOPHILS % (AUTO) 3 % (0-10); HEMATOCRIT 30 % (40-54); HEMOGLOBIN 9.6 g/dL (13.3-17.7); LYMPHOCYTES # (AUTO) 0.6 10^3/uL (1.0-4.0); LYMPHOCYTES % (AUTO) 10 % (12-44); MEAN CORPUSCULAR HEMOGLOBIN 31 pg (25-34); MEAN CORPUSCULAR HGB CONC 32 g/dL (32-36); MEAN CORPUSCULAR VOLUME 95 fL (80-99); MEAN PLATELET VOLUME 10.4 fL (9.0-12.2); MONOCYTES # (AUTO) 0.7 10^3/uL (0.0-1.0); MONOCYTES % (AUTO) 11 % (0-12); NEUTROPHILS # (AUTO) 4.8 10^3/uL (1.8-7.8); NEUTROPHILS % (AUTO) 75 % (42-75); PLATELET COUNT 182 10^3/uL (130-400); WHITE BLOOD COUNT 6.4 10^3/uL (4.3-11.0)
[2020-05-09 17:00] LABS: ALBUMIN 3.9 GM/DL (3.2-4.5); BILIRUBIN,TOTAL 0.7 MG/DL (0.1-1.0); CALCIUM 8.4 MG/DL (8.5-10.1); CREATININE SERUM 4.17 MG/DL (0.60-1.30); POTASSIUM 3.9 MMOL/L (3.6-5.0); TOTAL PROTEIN 6.9 GM/DL (6.4-8.2)
[2020-05-16 08:07] LABS: IMMUNOFIX PATH REPORT NUMBER Complete (Complete)
[2020-05-17 14:12] LABS: BASOPHILS % (AUTO) 1 % (0-10); EOSINOPHILS # (AUTO) 0.3 10^3/uL (0.0-0.3); EOSINOPHILS % (AUTO) 4 % (0-10); HEMATOCRIT 25 % (40-54); HEMOGLOBIN 8.1 g/dL (13.3-17.7); LYMPHOCYTES # (AUTO) 0.9 10^3/uL (1.0-4.0); LYMPHOCYTES % (AUTO) 12 % (12-44); MEAN CORPUSCULAR HEMOGLOBIN 30 pg (25-34); MEAN CORPUSCULAR HGB CONC 32 g/dL (32-36); MEAN CORPUSCULAR VOLUME 95 fL (80-99); MEAN PLATELET VOLUME 9.6 fL (9.0-12.2); MONOCYTES # (AUTO) 0.5 10^3/uL (0.0-1.0); MONOCYTES % (AUTO) 7 % (0-12); NEUTROPHILS # (AUTO) 5.6 10^3/uL (1.8-7.8); NEUTROPHILS % (AUTO) 76 % (42-75); PLATELET COUNT 180 10^3/uL (130-400); WHITE BLOOD COUNT 7.3 10^3/uL (4.3-11.0)
[2020-05-17 14:41] LABS: ALBUMIN 3.8 GM/DL (3.2-4.5); BILIRUBIN,TOTAL 0.7 MG/DL (0.1-1.0); CALCIUM 8.1 MG/DL (8.5-10.1); CREATININE SERUM 7.56 MG/DL (0.60-1.30); POTASSIUM 4.3 MMOL/L (3.6-5.0); TOTAL PROTEIN 6.9 GM/DL (6.4-8.2)
[2020-05-24 14:05] LABS: BASOPHILS % (AUTO) 0 % (0-10); EOSINOPHILS # (AUTO) 0.3 10^3/uL (0.0-0.3); EOSINOPHILS % (AUTO) 4 % (0-10); HEMATOCRIT 22 % (40-54); HEMOGLOBIN 7.1 g/dL (13.3-17.7); LYMPHOCYTES # (AUTO) 0.5 10^3/uL (1.0-4.0); LYMPHOCYTES % (AUTO) 7 % (12-44); MEAN CORPUSCULAR HEMOGLOBIN 31 pg (25-34); MEAN CORPUSCULAR HGB CONC 32 g/dL (32-36); MEAN CORPUSCULAR VOLUME 97 fL (80-99); MEAN PLATELET VOLUME 10.1 fL (9.0-12.2); MONOCYTES # (AUTO) 0.5 10^3/uL (0.0-1.0); MONOCYTES % (AUTO) 8 % (0-12); NEUTROPHILS # (AUTO) 5.1 10^3/uL (1.8-7.8); NEUTROPHILS % (AUTO) 80 % (42-75); PLATELET COUNT 148 10^3/uL (130-400); WHITE BLOOD COUNT 6.4 10^3/uL (4.3-11.0)
[2020-05-24 14:28] LABS: ALBUMIN 3.5 GM/DL (3.2-4.5); BILIRUBIN,TOTAL 0.5 MG/DL (0.1-1.0); CALCIUM 8.1 MG/DL (8.5-10.1); CREATININE SERUM 7.12 MG/DL (0.60-1.30); POTASSIUM 3.8 MMOL/L (3.6-5.0); TOTAL PROTEIN 6.5 GM/DL (6.4-8.2)
[2020-05-31 13:31] LABS: BASOPHILS % (AUTO) 0 % (0-10); EOSINOPHILS # (AUTO) 0.4 10^3/uL (0.0-0.3); EOSINOPHILS % (AUTO) 6 % (0-10); HEMATOCRIT 27 % (40-54); HEMOGLOBIN 8.5 g/dL (13.3-17.7); LYMPHOCYTES # (AUTO) 0.7 10^3/uL (1.0-4.0); LYMPHOCYTES % (AUTO) 9 % (12-44); MEAN CORPUSCULAR HEMOGLOBIN 30 pg (25-34); MEAN CORPUSCULAR HGB CONC 32 g/dL (32-36); MEAN CORPUSCULAR VOLUME 95 fL (80-99); MEAN PLATELET VOLUME 9.9 fL (9.0-12.2); MONOCYTES # (AUTO) 0.5 10^3/uL (0.0-1.0); MONOCYTES % (AUTO) 7 % (0-12); NEUTROPHILS # (AUTO) 6.1 10^3/uL (1.8-7.8); NEUTROPHILS % (AUTO) 78 % (42-75); PLATELET COUNT 174 10^3/uL (130-400); WHITE BLOOD COUNT 7.8 10^3/uL (4.3-11.0)
[2020-05-31 13:56] LABS: ALBUMIN 3.8 GM/DL (3.2-4.5); BILIRUBIN,TOTAL 0.6 MG/DL (0.1-1.0); CALCIUM 7.8 MG/DL (8.5-10.1); CREATININE SERUM 6.54 MG/DL (0.60-1.30); POTASSIUM 4.8 MMOL/L (3.6-5.0); TOTAL PROTEIN 6.7 GM/DL (6.4-8.2)
[2020-06-06 14:56] LABS: BASOPHILS % (AUTO) 0 % (0-10); EOSINOPHILS # (AUTO) 0.4 10^3/uL (0.0-0.3); EOSINOPHILS % (AUTO) 5 % (0-10); HEMATOCRIT 26 % (40-54); HEMOGLOBIN 8.1 g/dL (13.3-17.7); LYMPHOCYTES # (AUTO) 0.9 10^3/uL (1.0-4.0); LYMPHOCYTES % (AUTO) 11 % (12-44); MEAN CORPUSCULAR HEMOGLOBIN 30 pg (25-34); MEAN CORPUSCULAR HGB CONC 31 g/dL (32-36); MEAN CORPUSCULAR VOLUME 96 fL (80-99); MEAN PLATELET VOLUME 9.7 fL (9.0-12.2); MONOCYTES # (AUTO) 0.6 10^3/uL (0.0-1.0); MONOCYTES % (AUTO) 7 % (0-12); NEUTROPHILS # (AUTO) 6.2 10^3/uL (1.8-7.8); NEUTROPHILS % (AUTO) 76 % (42-75); PLATELET COUNT 205 10^3/uL (130-400); WHITE BLOOD COUNT 8.2 10^3/uL (4.3-11.0)
[2020-06-06 15:16] LABS: ALBUMIN 4.1 GM/DL (3.2-4.5); BILIRUBIN,TOTAL 0.8 MG/DL (0.1-1.0); CALCIUM 8.7 MG/DL (8.5-10.1); CREATININE SERUM 3.94 MG/DL (0.60-1.30); POTASSIUM 3.8 MMOL/L (3.6-5.0); TOTAL PROTEIN 7.4 GM/DL (6.4-8.2)
[2020-06-13 15:22] LABS: BASOPHILS # (AUTO) 0.1 10^3/uL (0.0-0.1); BASOPHILS % (AUTO) 1 % (0-10); EOSINOPHILS # (AUTO) 0.2 10^3/uL (0.0-0.3); EOSINOPHILS % (AUTO) 3 % (0-10); HEMATOCRIT 22 % (40-54); HEMOGLOBIN 7.2 g/dL (13.3-17.7); LYMPHOCYTES # (AUTO) 0.4 10^3/uL (1.0-4.0); LYMPHOCYTES % (AUTO) 6 % (12-44); MEAN CORPUSCULAR HEMOGLOBIN 31 pg (25-34); MEAN CORPUSCULAR HGB CONC 32 g/dL (32-36); MEAN CORPUSCULAR VOLUME 96 fL (80-99); MEAN PLATELET VOLUME 9.4 fL (9.0-12.2); MONOCYTES # (AUTO) 0.4 10^3/uL (0.0-1.0); MONOCYTES % (AUTO) 5 % (0-12); NEUTROPHILS # (AUTO) 5.6 10^3/uL (1.8-7.8); NEUTROPHILS % (AUTO) 83 % (42-75); PLATELET COUNT 168 10^3/uL (130-400); WHITE BLOOD COUNT 6.8 10^3/uL (4.3-11.0)
[2020-06-13 15:43] LABS: ALBUMIN 3.9 GM/DL (3.2-4.5); BILIRUBIN,TOTAL 0.7 MG/DL (0.1-1.0); CALCIUM 7.1 MG/DL (8.5-10.1); CREATININE SERUM 4.18 MG/DL (0.60-1.30); POTASSIUM 3.5 MMOL/L (3.6-5.0); TOTAL PROTEIN 7.1 GM/DL (6.4-8.2)
[2020-06-20 15:03] LABS: BASOPHILS % (AUTO) 1 % (0-10); EOSINOPHILS # (AUTO) 0.4 10^3/uL (0.0-0.3); EOSINOPHILS % (AUTO) 4 % (0-10); LYMPHOCYTES # (AUTO) 0.7 10^3/uL (1.0-4.0); LYMPHOCYTES % (AUTO) 9 % (12-44); MEAN CORPUSCULAR HEMOGLOBIN 31 pg (25-34); MEAN CORPUSCULAR HGB CONC 33 g/dL (32-36); MEAN CORPUSCULAR VOLUME 97 fL (80-99); MONOCYTES # (AUTO) 0.6 10^3/uL (0.0-1.0); MONOCYTES % (AUTO) 7 % (0-12); NEUTROPHILS # (AUTO) 6.2 10^3/uL (1.8-7.8); NEUTROPHILS % (AUTO) 77 % (42-75); PLATELET COUNT 205 10^3/uL (130-400)
[2020-06-20 15:05] LABS: HEMATOCRIT 20 % (40-54); HEMOGLOBIN 6.5 g/dL (13.3-17.7)
[2020-06-20 15:27] LABS: ALBUMIN 3.9 GM/DL (3.2-4.5); BILIRUBIN,TOTAL 0.7 MG/DL (0.1-1.0); CREATININE SERUM 4.31 MG/DL (0.60-1.30); POTASSIUM 3.4 MMOL/L (3.6-5.0); TOTAL PROTEIN 6.9 GM/DL (6.4-8.2)
[2020-06-27 15:05] LABS: BASOPHILS # (AUTO) 0.1 10^3/uL (0.0-0.1); BASOPHILS % (AUTO) 1 % (0-10); EOSINOPHILS # (AUTO) 0.4 10^3/uL (0.0-0.3); EOSINOPHILS % (AUTO) 6 % (0-10); LYMPHOCYTES # (AUTO) 0.9 X 10^3 (1.0-4.0); LYMPHOCYTES % (AUTO) 13 % (12-44); MEAN CORPUSCULAR HEMOGLOBIN 31 pg (25-34); MEAN CORPUSCULAR HGB CONC 32 g/dL (32-36); MEAN CORPUSCULAR VOLUME 97 fL (80-99); MEAN PLATELET VOLUME 9.6 fL (9.0-12.2); MONOCYTES # (AUTO) 0.4 X 10^3 (0.0-1.0); MONOCYTES % (AUTO) 6 % (0-12); NEUTROPHILS # (AUTO) 4.9 X 10^3 (1.8-7.8); NEUTROPHILS % (AUTO) 73 % (42-75); PLATELET COUNT 272 10^3/uL (130-400); WHITE BLOOD COUNT 6.8 10^3/uL (4.3-11.0)
[2020-06-27 15:10] LABS: HEMATOCRIT 20 % (40-54); HEMOGLOBIN 6.5 g/dL (13.3-17.7)
[2020-06-27 15:25] LABS: BILIRUBIN,TOTAL 0.7 MG/DL (0.1-1.0); CALCIUM 8.1 MG/DL (8.5-10.1); CREATININE SERUM 3.85 MG/DL (0.60-1.30); POTASSIUM 3.8 MMOL/L (3.6-5.0); TOTAL PROTEIN 7.4 GM/DL (6.4-8.2)
[2020-07-04 14:34] LABS: BASOPHILS % (AUTO) 1 % (0-10); EOSINOPHILS # (AUTO) 0.4 10^3/uL (0.0-0.3); EOSINOPHILS % (AUTO) 6 % (0-10); HEMATOCRIT 21 % (40-54); LYMPHOCYTES # (AUTO) 0.7 10^3/uL (1.0-4.0); LYMPHOCYTES % (AUTO) 11 % (12-44); MEAN CORPUSCULAR HEMOGLOBIN 31 pg (25-34); MEAN CORPUSCULAR HGB CONC 32 g/dL (32-36); MEAN CORPUSCULAR VOLUME 96 fL (80-99); MONOCYTES # (AUTO) 0.5 10^3/uL (0.0-1.0); MONOCYTES % (AUTO) 8 % (0-12); NEUTROPHILS # (AUTO) 4.5 10^3/uL (1.8-7.8); NEUTROPHILS % (AUTO) 73 % (42-75); PLATELET COUNT 193 10^3/uL (130-400); WHITE BLOOD COUNT 6.2 10^3/uL (4.3-11.0)
[2020-07-04 14:36] LABS: HEMOGLOBIN 6.8 g/dL (13.3-17.7)
[2020-07-04 15:11] LABS: ALBUMIN 3.9 GM/DL (3.2-4.5); BILIRUBIN,TOTAL 0.7 MG/DL (0.1-1.0); CALCIUM 7.7 MG/DL (8.5-10.1); CREATININE SERUM 3.98 MG/DL (0.60-1.30); POTASSIUM 4.2 MMOL/L (3.6-5.0)
[2020-07-12 13:11] LABS: BASOPHILS % (AUTO) 1 % (0-10); EOSINOPHILS # (AUTO) 0.3 10^3/uL (0.0-0.3); EOSINOPHILS % (AUTO) 6 % (0-10); LYMPHOCYTES # (AUTO) 0.6 10^3/uL (1.0-4.0); LYMPHOCYTES % (AUTO) 14 % (12-44); MEAN CORPUSCULAR HEMOGLOBIN 32 pg (25-34); MEAN CORPUSCULAR HGB CONC 32 g/dL (32-36); MEAN CORPUSCULAR VOLUME 99 fL (80-99); MEAN PLATELET VOLUME 9.7 fL (9.0-12.2); MONOCYTES # (AUTO) 0.5 10^3/uL (0.0-1.0); MONOCYTES % (AUTO) 13 % (0-12); NEUTROPHILS # (AUTO) 2.7 10^3/uL (1.8-7.8); NEUTROPHILS % (AUTO) 65 % (42-75); PLATELET COUNT 145 10^3/uL (130-400); WHITE BLOOD COUNT 4.2 10^3/uL (4.3-11.0)
[2020-07-12 13:20] LABS: HEMATOCRIT 20 % (40-54); HEMOGLOBIN 6.5 g/dL (13.3-17.7)
[2020-07-12 13:32] LABS: ALBUMIN 3.8 GM/DL (3.2-4.5); BILIRUBIN,TOTAL 0.9 MG/DL (0.1-1.0); CALCIUM 7.4 MG/DL (8.5-10.1); CREATININE SERUM 6.57 MG/DL (0.60-1.30); POTASSIUM 5.5 MMOL/L (3.6-5.0); TOTAL PROTEIN 6.7 GM/DL (6.4-8.2)
[2020-07-18 14:40] LABS: HEMOGLOBIN 7.3 g/dL (13.3-17.7)
[2020-07-18 14:42] LABS: BASOPHILS % (AUTO) 1 % (0-10); EOSINOPHILS # (AUTO) 0.3 10^3/uL (0.0-0.3); EOSINOPHILS % (AUTO) 6 % (0-10); HEMATOCRIT 22 % (40-54); LYMPHOCYTES # (AUTO) 0.6 10^3/uL (1.0-4.0); LYMPHOCYTES % (AUTO) 12 % (12-44); MEAN CORPUSCULAR HEMOGLOBIN 32 pg (25-34); MEAN CORPUSCULAR HGB CONC 33 g/dL (32-36); MEAN CORPUSCULAR VOLUME 97 fL (80-99); MEAN PLATELET VOLUME 10.3 fL (9.0-12.2); MONOCYTES # (AUTO) 0.3 10^3/uL (0.0-1.0); MONOCYTES % (AUTO) 7 % (0-12); NEUTROPHILS # (AUTO) 3.5 10^3/uL (1.8-7.8); NEUTROPHILS % (AUTO) 75 % (42-75); PLATELET COUNT 143 10^3/uL (130-400); WHITE BLOOD COUNT 4.7 10^3/uL (4.3-11.0)
[2020-07-18 15:03] LABS: ALBUMIN 3.7 GM/DL (3.2-4.5); BILIRUBIN,TOTAL 0.7 MG/DL (0.1-1.0); CALCIUM 8.6 MG/DL (8.5-10.1); CREATININE SERUM 3.76 MG/DL (0.60-1.30); POTASSIUM 3.6 MMOL/L (3.6-5.0); TOTAL PROTEIN 6.8 GM/DL (6.4-8.2)
[2020-07-25 15:05] LABS: BASOPHILS % (AUTO) 1 % (0-10); EOSINOPHILS # (AUTO) 0.4 10^3/uL (0.0-0.3); EOSINOPHILS % (AUTO) 8 % (0-10); HEMATOCRIT 24 % (40-54); HEMOGLOBIN 7.7 g/dL (13.3-17.7); LYMPHOCYTES # (AUTO) 0.5 10^3/uL (1.0-4.0); LYMPHOCYTES % (AUTO) 10 % (12-44); MEAN CORPUSCULAR HEMOGLOBIN 31 pg (25-34); MEAN CORPUSCULAR HGB CONC 32 g/dL (32-36); MEAN CORPUSCULAR VOLUME 98 fL (80-99); MONOCYTES # (AUTO) 0.5 10^3/uL (0.0-1.0); MONOCYTES % (AUTO) 9 % (0-12); NEUTROPHILS # (AUTO) 3.8 10^3/uL (1.8-7.8); NEUTROPHILS % (AUTO) 71 % (42-75); PLATELET COUNT 158 10^3/uL (130-400); WHITE BLOOD COUNT 5.3 10^3/uL (4.3-11.0)
[2020-07-25 15:28] LABS: ALBUMIN 3.8 GM/DL (3.2-4.5); BILIRUBIN,TOTAL 0.9 MG/DL (0.1-1.0); CALCIUM 8.8 MG/DL (8.5-10.1); CREATININE SERUM 4.17 MG/DL (0.60-1.30); POTASSIUM 4.3 MMOL/L (3.6-5.0); TOTAL PROTEIN 7.2 GM/DL (6.4-8.2)
[2020-08-01 15:23] LABS: BASOPHILS % (AUTO) 1 % (0-10); EOSINOPHILS # (AUTO) 0.2 10^3/uL (0.0-0.3); EOSINOPHILS % (AUTO) 4 % (0-10); HEMATOCRIT 21 % (40-54); LYMPHOCYTES # (AUTO) 0.4 10^3/uL (1.0-4.0); LYMPHOCYTES % (AUTO) 7 % (12-44); MEAN CORPUSCULAR HEMOGLOBIN 32 pg (25-34); MEAN CORPUSCULAR HGB CONC 32 g/dL (32-36); MEAN CORPUSCULAR VOLUME 101 fL (80-99); MEAN PLATELET VOLUME 10.2 fL (9.0-12.2); MONOCYTES # (AUTO) 0.4 10^3/uL (0.0-1.0); MONOCYTES % (AUTO) 8 % (0-12); NEUTROPHILS # (AUTO) 4.3 10^3/uL (1.8-7.8); NEUTROPHILS % (AUTO) 79 % (42-75); PLATELET COUNT 139 10^3/uL (130-400); WHITE BLOOD COUNT 5.5 10^3/uL (4.3-11.0)
[2020-08-01 15:26] LABS: HEMOGLOBIN 6.6 g/dL (13.3-17.7)
[2020-08-01 15:41] LABS: ALBUMIN 3.7 GM/DL (3.2-4.5); BILIRUBIN,TOTAL 0.8 MG/DL (0.1-1.0); CREATININE SERUM 4.05 MG/DL (0.60-1.30); POTASSIUM 4.2 MMOL/L (3.6-5.0); TOTAL PROTEIN 6.9 GM/DL (6.4-8.2)
[~2020-08-04] VITALS: Ht 182.9 cm; Wt 92.5 kg
[~2020-08-04 10:48] MED LIST changes: +BORTEZOMIB 3.5 MG VELCADE IV SCH; +DARBEPOETIN 40 MCG/ML (ARANESP) 1 ML VIAL SC SCH; +DENOSUMAB 120 MG/1.7 ML (XGEVA) SQ SCH; +MAGNESIUM SULFATE (CANCER CTR) 2 GM in NS (IVPB) CANCER CENTER 100 ML IV ONE; +NS (IVPB) CANCER CENTER 250 ML ONE; +NS IV 1000 ML (CANCER CTR) 1,000 ML IV SCH; +NS IV 500 ML (CANCER CENTER) 500 ML ONE
== END 2020-08-07 | disposition home or self-care (01) ==
LOC: ONC 10:48
PROVIDERS: ATTEND Internal Medicine Hematology & Oncology
DX: C90.00 Multiple myeloma not having achieved remission (principal); M89.9 Disorder of bone, unspecified
CPT/HCPCS: 80053; 82232; 82784 ×3; 83883; 84165; 85025; 86334; G0463; 36430; 36591; 83735; 84155; 86850; 86900; 86901; 86920; 86922; 96365; 96372; 96401; 96402; 99213

== ENCOUNTER 2020-08-26 14:50 | Outpatient (RCR) | payer MEDICARE ==
[2020-08-08 14:56] LABS: BASOPHILS % (AUTO) 0 % (0-10); EOSINOPHILS # (AUTO) 0.4 10^3/uL (0.0-0.3); EOSINOPHILS % (AUTO) 6 % (0-10); HEMATOCRIT 27 % (40-54); HEMOGLOBIN 8.4 g/dL (13.3-17.7); LYMPHOCYTES # (AUTO) 0.5 X 10^3 (1.0-4.0); LYMPHOCYTES % (AUTO) 7 % (12-44); MEAN CORPUSCULAR HEMOGLOBIN 32 pg (25-34); MEAN CORPUSCULAR HGB CONC 32 g/dL (32-36); MEAN CORPUSCULAR VOLUME 100 fL (80-99); MEAN PLATELET VOLUME 10.2 fL (9.0-12.2); MONOCYTES # (AUTO) 0.7 X 10^3 (0.0-1.0); MONOCYTES % (AUTO) 10 % (0-12); NEUTROPHILS # (AUTO) 5.1 X 10^3 (1.8-7.8); NEUTROPHILS % (AUTO) 76 % (42-75); PLATELET COUNT 135 10^3/uL (130-400); WHITE BLOOD COUNT 6.7 10^3/uL (4.3-11.0)
[2020-08-08 15:11] LABS: ALBUMIN 3.7 GM/DL (3.2-4.5); BILIRUBIN,TOTAL 0.7 MG/DL (0.1-1.0); CALCIUM 8.5 MG/DL (8.5-10.1); CREATININE SERUM 4.46 MG/DL (0.60-1.30); POTASSIUM 4.5 MMOL/L (3.6-5.0); TOTAL PROTEIN 6.7 GM/DL (6.4-8.2)
[2020-08-16 13:07] LABS: BASOPHILS % (AUTO) 0 % (0-10); EOSINOPHILS # (AUTO) 0.5 10^3/uL (0.0-0.3); EOSINOPHILS % (AUTO) 6 % (0-10); HEMATOCRIT 28 % (40-54); HEMOGLOBIN 8.6 g/dL (13.3-17.7); LYMPHOCYTES # (AUTO) 0.7 10^3/uL (1.0-4.0); LYMPHOCYTES % (AUTO) 9 % (12-44); MEAN CORPUSCULAR HEMOGLOBIN 32 pg (25-34); MEAN CORPUSCULAR HGB CONC 31 g/dL (32-36); MEAN CORPUSCULAR VOLUME 106 fL (80-99); MEAN PLATELET VOLUME 10.4 fL (9.0-12.2); MONOCYTES # (AUTO) 1.1 10^3/uL (0.0-1.0); MONOCYTES % (AUTO) 15 % (0-12); NEUTROPHILS # (AUTO) 5.1 10^3/uL (1.8-7.8); NEUTROPHILS % (AUTO) 68 % (42-75); PLATELET COUNT 146 10^3/uL (130-400); WHITE BLOOD COUNT 7.5 10^3/uL (4.3-11.0)
[2020-08-16 13:22] LABS: ALBUMIN 3.7 GM/DL (3.2-4.5); BILIRUBIN,TOTAL 0.9 MG/DL (0.1-1.0); CALCIUM 8.1 MG/DL (8.5-10.1); CREATININE SERUM 6.47 MG/DL (0.60-1.30); POTASSIUM 5.2 MMOL/L (3.6-5.0); TOTAL PROTEIN 7.1 GM/DL (6.4-8.2)
[2020-08-22 15:13] LABS: LYMPHOCYTES # (AUTO) 0.6 10^3/uL (1.0-4.0); LYMPHOCYTES % (AUTO) 8 % (12-44)
[2020-08-22 15:15] LABS: BASOPHILS % (AUTO) 0 % (0-10); EOSINOPHILS # (AUTO) 0.4 10^3/uL (0.0-0.3); EOSINOPHILS % (AUTO) 5 % (0-10); HEMATOCRIT 26 % (40-54); HEMOGLOBIN 7.7 g/dL (13.3-17.7); MEAN CORPUSCULAR HEMOGLOBIN 32 pg (25-34); MEAN CORPUSCULAR HGB CONC 30 g/dL (32-36); MEAN CORPUSCULAR VOLUME 106 fL (80-99); MEAN PLATELET VOLUME 10.4 fL (9.0-12.2); MONOCYTES # (AUTO) 0.7 10^3/uL (0.0-1.0); MONOCYTES % (AUTO) 9 % (0-12); NEUTROPHILS # (AUTO) 5.9 10^3/uL (1.8-7.8); NEUTROPHILS % (AUTO) 77 % (42-75); PLATELET COUNT 121 10^3/uL (130-400); WHITE BLOOD COUNT 7.7 10^3/uL (4.3-11.0)
[2020-08-22 15:29] LABS: ALBUMIN 3.8 GM/DL (3.2-4.5); BILIRUBIN,TOTAL 0.8 MG/DL (0.1-1.0); CALCIUM 9.2 MG/DL (8.5-10.1); CREATININE SERUM 3.79 MG/DL (0.60-1.30); POTASSIUM 4.2 MMOL/L (3.6-5.0); TOTAL PROTEIN 6.9 GM/DL (6.4-8.2)
[2020-08-25 14:27] LABS: MAGNESIUM 2.2 MG/DL (1.6-2.4)
[~2020-08-26 14:50] MED LIST changes: -DARBEPOETIN 40 MCG/ML (ARANESP) 1 ML VIAL SC SCH; -MAGNESIUM SULFATE (CANCER CTR) 2 GM in NS (IVPB) CANCER CENTER 100 ML IV ONE; -NS (IVPB) CANCER CENTER 250 ML ONE; -NS IV 1000 ML (CANCER CTR) 1,000 ML IV SCH; -NS IV 500 ML (CANCER CENTER) 500 ML ONE
== END 2020-08-29 08:44 | disposition home or self-care (01) ==
LOC: ONC 14:50
PROVIDERS: ATTEND Internal Medicine Hematology & Oncology
DX: C90.00 Multiple myeloma not having achieved remission (principal); M89.9 Disorder of bone, unspecified; D64.9 Anemia, unspecified
CPT/HCPCS: 80053; 83735; 85025; 96401; 99213

== ENCOUNTER → 2020-08-30 | Outpatient (CLI) | payer MEDICARE ==
[~2020-08-30] MED LIST changes: -BORTEZOMIB 3.5 MG VELCADE IV SCH; +CATHETER FLUSH 10 ML SYR IV PRN; -DENOSUMAB 120 MG/1.7 ML (XGEVA) SQ SCH; +GADOBUTROL 7.5 MMOL/7.5 ML (GADAVIST) VIAL IV ONE; +HOLD METFORMIN - RECEIVED CONTRAST 20 ML VIAL IV SCH; +IOHEXOL 350 MG/ML 100 ML (OMNIPAQUE 350) VIAL IV ONE; +NS 100 ML (IVPB) BAG IV ONE
--- NOTE | 2020-08-30 14:35 | Diagnostic Imaging Report ---
PROCEDURE: CT head with and without contrast. TECHNIQUE: Multiple contiguous axial images were obtained through the brain before and after the administration of intravenous contrast. Auto Exposure Controls were utilized during the CT exam to meet ALARA standards for radiation dose reduction. INDICATION: Left periorbital and facial pain, patient has a history of multiple myeloma. Compared with CT head dated 04/20/2020 and correlated with the metabolic PET CT dated 05/17/2020. FINDINGS: A few punched out lytic foci in the high calvarium at the frontoparietal lobes near, at and below the level of the vertex unchanged. Some subtle bubbly lucencies in the temporal bones at the sphenoid wings unchanged. Brain itself showed no evidence for soft tissue mass, infarct, hemorrhage or edema and after contrast was administered. No abnormal or suspicious enhancing foci, mastoid air cells and middle ear cavities clear. The paranasal sinuses are clear. Bony and soft tissue orbital contents appeared unremarkable. No acute appearing pathology. IMPRESSION: 1. A few calvarial and skull base lucencies unchanged from comparison head CT, nonspecific but given the history, raises the question of intracranial involvement by known myeloma. 2. However the brain itself is unremarkable and there is no evidence for intracranial metastatic disease, hemorrhage, edema, infarct or abnormal enhancement. 3. The orbital contents and the paranasal sinuses themselves were all clear and no fracture identified. Dictated by: Dictated on workstation # [id number]
--- NOTE | 2020-08-30 16:38 | Diagnostic Imaging Report ---
CLINICAL INDICATION: Patient has history of multiple myeloma. Patient is on dialysis. EXAMS: 1: MRI of the thoracic spine performed without and with 7 mL of Gadavist IV contrast. Sequences include sagittal T1, sagittal T2, sagittal T2 fat-sat, axial T1, axial T2, axial T1 post IV contrast, and sagittal T1 fat-sat post IV contrast. 2: MRI of the lumbar spine performed without and with IV contrast in conjunction with MRI of the thoracic spine. Sequences include sagittal T2, sagittal T1, sagittal T2 fat-sat, axial T1, axial T2, sagittal T1 fat-sat post IV contrast, and axial T1 fat-sat post IV contrast. COMPARISON: CT scan of the abdomen and pelvis without contrast dated 05/26/2020. FINDINGS: MRI of the thoracic and lumbar spine shows numerous high T2, nearly isointense T1, avidly enhancing masses of varying sizes throughout the visualized axial skeleton. These findings are superimposed upon an overall low T1/low T2 signal. There is involvement of the visualized portions of the sacrum, iliac bones, and ribs. This finding was also noted on the comparison CT scan. There is no expansile infiltrative process seen causing encroachment of the central canal or neural foramina. MRI THORACIC SPINE: There is no acute thoracic spine fracture or dislocation. The thoracic spine has normal cord caliber with no abnormal signal. There are mild to moderately hypertrophic spurs involving the thoracic spine, most pronounced in its lower portion. There is facet arthropathy. There is small posterior disc bulge at the T2-T3, T7-T8, and T10-T11 levels which causes no significant central canal narrowing. There is minimal prominence to the posterior epidural fat involving the mid thoracic spine, which only measures 3 mm. There is [id number] multilevel neural foramen narrowing seen from facet arthropathy. There is no significant paraspinal soft tissue abnormality. MRI LUMBAR SPINE: There is no acute lumbar spine fracture or dislocation. The visualized portions of the distal thoracic spinal cord, conus medullaris, and cauda equina nerve roots are unremarkable. The conus medullaris tip is seen at the upper L1 vertebral body level. There is no significant paraspinal soft tissue abnormality. There is a 12 mm cyst involving the right kidney. L1-L2: There is no significant central canal or neural foramen narrowing. L2-L3: There is minimal disc bulging into the left foraminal region with minimal left neural foramen narrowing. There is no significant right neural foramen narrowing or central canal narrowing. L3-L4: There is mild bilateral facet arthropathy. There is minimal bilateral neural foramen narrowing. There is no significant central canal narrowing. L4-L5: There is minimal diffuse disc bulging. There is a focal annular tear posteriorly. There is mild bilateral facet arthropathy. There is mild right neural foramen narrowing and no significant left neural foramen narrowing. There is no significant central canal narrowing. L5-S1: There is a mild diffuse disc bulge and moderate loss of disc space height and bilateral facet arthropathy. There is [id number] bilateral neural foramen narrowing. There is no significant central canal stenosis. MRI OF THORACIC AND LUMBAR SPINE IMPRESSION: 1: There are numerous high T2, enhancing lesions throughout the visualized axial skeleton consistent with patient's history of multiple myeloma. There is no expansile infiltrative vertebral body lesion which encroaches upon the central canal or neural foramen regions. 2: There is thoracic spine and lumbar spine degenerative disease, as described above. Dictated by: Dictated on workstation # [id number]
== END ==
LOC: RAD 13:15
PROVIDERS: ATTEND Internal Medicine Hematology & Oncology
DX: C90.00 Multiple myeloma not having achieved remission (principal); M47.814 Spondylosis without myelopathy or radiculopathy, thoracic region; M47.816 Spondylosis without myelopathy or radiculopathy, lumbar region; M47.817 Spondylosis without myelopathy or radiculopathy, lumbosacral region; M51.24 Other intervertebral disc displacement, thoracic region; M51.26 Other intervertebral disc displacement, lumbar region; M51.27 Other intervertebral disc displacement, lumbosacral region; M48.04 Spinal stenosis, thoracic region; M48.061 Spinal stenosis, lumbar region without neurogenic claudication; M48.07 Spinal stenosis, lumbosacral region
CPT/HCPCS: 70470; 72157; 72158

== ENCOUNTER 2020-09-22 06:47 | Emergency (ER) | payer MEDICARE ==
[~2020-09-22] VITALS: Ht 187 cm; Wt 88.0 kg
[~2020-09-22 06:47] MED LIST changes: -CATHETER FLUSH 10 ML SYR IV PRN; -GADOBUTROL 7.5 MMOL/7.5 ML (GADAVIST) VIAL IV ONE; -HOLD METFORMIN - RECEIVED CONTRAST 20 ML VIAL IV SCH; -IOHEXOL 350 MG/ML 100 ML (OMNIPAQUE 350) VIAL IV ONE; -NS 100 ML (IVPB) BAG IV ONE
--- NOTE | 2020-09-22 07:01 | ED GI ---
General Stated Complaint: BLOODY STOOL History of Present Illness Date Seen by Provider: Sep 22, 2020 Time Seen by Provider: 07:01 Initial Comments 65-year-old male presents with bloody stool. Patient reports he been having bloody stool for about 2 days. Patient reports he has a history of multiple myeloma, is dialysis dependent and has Crohn's disease. Patient reports that his last hemoglobin was checked 2 days ago and it was 8.4 and has chronic anemia due to his multiple myeloma. Patient also he is due for dialysis today. Patient thought that the bloody stool with stop his leg did not come in. He reports that the loose stool. He has some mild abdominal discomfort. He also reports just a little bit of chest discomfort, no shortness of breath. Allergies and Home Medications Allergies Coded Allergies: Penicillins (Verified Allergy, Severe, EDEMA, 07/25/19) adhesive tape (Verified Allergy, Severe, RASH, 07/25/19) cefazolin (Verified Allergy, Severe, RASH, 07/25/19) cephalexin (Verified Allergy, Severe, RASH, 07/25/19) morphine (Verified Allergy, Severe, EDEMA, takes Hydromorphone at home, 12/30/19) butabarbital (Verified Allergy, Unknown, 07/25/19) butorphanol (Verified Allergy, Unknown, 07/25/19) ibuprofen (Verified Allergy, Unknown, 07/25/19) piperacillin (Verified Allergy, Unknown, EDEMA, 07/25/19) promethazine (Verified Allergy, Unknown, 07/25/19) silicone (Verified Allergy, Unknown, 07/25/19) zolpidem (Verified Allergy, Unknown, 07/25/19) ofloxacin (Verified Adverse Reaction, Unknown, DIARRHEA, 07/25/19) Home Medications Acetaminophen 325 Mg Capsule, 650 MG PO Q8H PRN for PAIN-MILD (1-4), (Reported) Azathioprine 50 Mg Tablet, 50 MG PO DAILY, (Reported) Doxycycline Hyclate 100 Mg Tablet, 100 MG PO BID Prescribed by: SREE TALAVERA on 07/31/20 1619 Famotidine 20 Mg Tablet, 20 MG PO Q24H Prescribed by: INGE ROMERO on 01/01/20 1142 Hydromorphone HCl 8 Mg Tablet, 8 MG PO Q6H PRN for PAIN-SEVERE (8-10), (Reported) Levothyroxine Sodium 25 Mcg Tablet, 25 MCG PO DAILY, (Reported) Lisinopril 5 Mg Tablet, 5 MG PO DAILY, (Reported) Methadone HCl 10 Mg Tablet, 10 MG PO Q6- 8H, (Reported) Multivitamin 1 Each Tablet, 1 EACH PO DAILY, (Reported) Peg 400/Hypromellose/Glycerin 15 Ml Drops, 2 DROPS OU PRN PRN for DRY EYES, (Re ported) Pregabalin 75 Mg Capsule, 75 MG PO TID, (Reported) Temazepam 15 Mg Capsule, 15-30 MG PO HS PRN for SLEEP, (Reported) Terbinafine HCl 250 Mg Tablet, 250 MG PO DAILY, (Reported) Venlafaxine HCl 75 Mg Cap.er.24h, 75 MG PO DAILY, (Reported) TAKES 75MG +150MG TO EQUAL 225MG DAILY Venlafaxine HCl 150 Mg Cap.er.24h, 150 MG PO DAILY, (Reported) TAKES 75MG +150MG TO EQUAL 225MG DAILY Patient Home Medication List Home Medication List Reviewed: Yes Review of Systems Review of Systems Constitutional: No chills; fever Respiratory: Denies Cough, Denies SOA at Rest Cardiovascular: Chest Pain; Denies Irregular Heart Rate, Denies Lightheadedness, Denies Palpitations Gastrointestinal: Diarrhea; Denies Nausea; Rectal Bleeding; Denies Vomiting Genitourinary: No Symptoms Reported Musculoskeletal: no symptoms reported Psychiatric/Neurological: No Symptoms Reported Hematologic/Lymphatic: See HPI Past Hnjvplw-Wmikrk-Kgvtuu Hx Seasonal Allergies Seasonal Allergies: No Past Medical History Surgeries: Yes (X11 ABDOMINAL, EYE) Appendectomy, Bowel Surgery, Eye Surgery, Gallbladder Respiratory: Yes (HYPOXIA DX ON O2@ 2L/M) Currently Using CPAP: No Currently Using BIPAP: No Cardiac: Yes (BLOOD CLOT, PERICARDITIS) Deep Vein Thrombosis, Pericarditis Neurological: Yes (BRAIN STEM STROKE) Stroke Genitourinary: Yes Renal Failure, Dialysis Gastrointestinal: Yes Crohns Disease, Obstructive Bowel Musculoskeletal: No Endocrine: Yes Hypothyroidsim HEENT: No Cataract Loss of Vision: Denies Hearing Impairment: Denies Cancer: Yes Psychosocial: No Integumentary: No Blood Disorders: Yes Family Medical History Asthma Physical Exam Vital Signs Vital Signs - First Documented 09/22/20 09/22/20 06:50 10:00 Temp 36.2 Pulse 107 Resp 18 B/P (MAP) 156/70 (98) Pulse Ox 97 O2 Delivery Room Air O2 Flow Rate 3.00 Capillary Refill : Height/Weight/BMI Height: '" Weight: lbs. oz. kg; 25.00 BMI Method: General Appearance: no apparent distress HEENT: PERRL/EOMI, pale conjunctivae (R), pale conjunctivae (L) Neck: full range of motion, supple Respiratory: lungs clear, normal breath sounds Cardiovascular: normal peripheral pulses, regular rate, rhythm Gastrointestinal: soft; No distended, No guarding, No rebound Extremities: non-tender, normal inspection Neurologic/Psychiatric: alert, normal mood/affect, oriented x 3 Skin: pallor Progress/Results/Core Measures Results/Orders Lab Results Laboratory Tests Test 09/22/20 07:06 Range/Units White Blood Count 9.8 4.3-11.0 10^3/uL Red Blood Count 1.34 L 4.35-5.85 10^6/uL Hemoglobin 4.6 *L 13.3-17.7 G/DL Hematocrit 15 *L 40-54 % Mean Corpuscular Volume 110 H 80-99 FL Mean Corpuscular Hemoglobin 34 25-34 PG Mean Corpuscular Hemoglobin Concent 31 L 32-36 G/DL Red Cell Distribution Width 20.6 H 10.0-14.5 % Platelet Count 174 130-400 10^3/uL Mean Platelet Volume 9.9 7.4-10.4 FL Immature Granulocyte % (Auto) 1 % Neutrophils (%) (Auto) 69 42-75 % Lymphocytes (%) (Auto) 17 12-44 % Monocytes (%) (Auto) 11 0-12 % Eosinophils (%) (Auto) 3 0-10 % Basophils (%) (Auto) 0 0-10 % Neutrophils # (Auto) 6.8 1.8-7.8 X 10^3 Lymphocytes # (Auto) 1.6 1.0-4.0 X 10^3 Monocytes # (Auto) 1.0 0.0-1.0 X 10^3 Eosinophils # (Auto) 0.3 0.0-0.3 10^3/uL Basophils # (Auto) 0.0 0.0-0.1 10^3/uL Immature Granulocyte # (Auto) 0.1 0.0-0.1 10^3/uL Erythrocyte Sedimentation Rate 52 H 0-30 MM/HR Sodium Level 134 L 135-145 MMOL/L Potassium Level 5.5 H 3.6-5.0 MMOL/L Chloride Level 96 L 98-107 MMOL/L Carbon Dioxide Level 20 L 21-32 MMOL/L Anion Gap 18 H 5-14 MMOL/L Blood Urea Nitrogen 91 H 7-18 MG/DL Creatinine 8.15 #H 0.60-1.30 MG/DL Estimat Glomerular Filtration Rate 7 BUN/Creatinine Ratio 11 Glucose Level 102 70-105 MG/DL Calcium Level 8.5 8.5-10.1 MG/DL Corrected Calcium 9.1 8.5-10.1 MG/DL Total Bilirubin 0.5 0.1-1.0 MG/DL Aspartate Amino Transf (AST/SGOT) 8 5-34 U/L Alanine Aminotransferase (ALT/SGPT) 6 0-55 U/L Alkaline Phosphatase 53 40-136 U/L Troponin I < 0.30 <0.30 NG/ML C-Reactive Protein 0.53 H <0.50 MG/DL Total Protein 5.2 L 6.4-8.2 GM/DL Albumin 3.2 3.2-4.5 GM/DL My Orders Orders - LIMON,AMIE L DO Cbc With Automated Diff (09/22/20 07:01) Comprehensive Metabolic Panel (09/22/20 07:01) Erythrocyte Sedimentation Rate (09/22/20 07:01) Crp Fs (09/22/20 07:01) Ekg Tracing (09/22/20 07:04) Monitor-Rhythm Ecg Trace Only (09/22/20 07:04) Troponin I Fs (09/22/20 07:04) Blood Products Transfusion: Re (09/22/20 07:43) Ns Iv 500 Ml (Sodium Chloride 0.9%) (09/22/20 07:53) Ns Iv 500 Ml (Sodium Chloride 0.9%) (09/22/20 08:30) Vital Signs/I&O 09/22/20 09/22/20 09/22/20 06:50 08:30 10:00 Temp 36.2 36.8 36.1 36.4 36.1 Pulse 107 90 74 Resp 18 16 B/P (MAP) 156/70 (98) 125/54 Pulse Ox 97 96 O2 Delivery Room Air Nasal Cannula O2 Flow Rate 3.00 Progress Progress Note : Progress Note Patient with active GI bleed with a hemoglobin drop from 8.4-4.6 over the last 2 days. Patient will be given 1 unit oh positive blood based on limited blood supply at this facility. Patient was graciously accepted by [facility] Dr. Blake. Patient to be transferred by EMS in stable but guarded condition. Departure Impression Primary Impression: Rectal bleed Additional Impressions: Anemia Qualified Codes: D50.9 - Iron deficiency anemia, unspecified Dependence on renal dialysis Disposition: XFER SHT-TRM HOSP Condition: Critical Transfer Transfer Reason: Exceeds level of care Time Spoke to Accepting Phy: 08:30 Transfer Progress Notes pt accepted [facility]- Dr Blake Transfer Facility: [facility] Method of Transfer: EMS Departure-Patient Inst. Referrals: SELF,HERBERT MCCLURE (PCP/Family) Primary Care Physician AMIE LMION DO Sep 22, 2020 07:01
[2020-09-22 07:30] LABS: WHITE BLOOD COUNT 9.8 10^3/uL (4.3-11.0)
[2020-09-22 07:31] LABS: HEMOGLOBIN 4.6 G/DL (13.3-17.7); MEAN CORPUSCULAR HEMOGLOBIN 34 PG (25-34)
[2020-09-22 07:32] LABS: BASOPHILS % (AUTO) 0 % (0-10); EOSINOPHILS # (AUTO) 0.3 10^3/uL (0.0-0.3); EOSINOPHILS % (AUTO) 3 % (0-10); HEMATOCRIT 15 % (40-54); LYMPHOCYTES # (AUTO) 1.6 X 10^3 (1.0-4.0); LYMPHOCYTES % (AUTO) 17 % (12-44); MEAN CORPUSCULAR HGB CONC 31 G/DL (32-36); MEAN CORPUSCULAR VOLUME 110 FL (80-99); MEAN PLATELET VOLUME 9.9 FL (7.4-10.4); MONOCYTES % (AUTO) 11 % (0-12); NEUTROPHILS # (AUTO) 6.8 X 10^3 (1.8-7.8); NEUTROPHILS % (AUTO) 69 % (42-75); PLATELET COUNT 174 10^3/uL (130-400)
[2020-09-22 07:41] LABS: SODIUM 134 MMOL/L (135-145)
[2020-09-22 07:43] LABS: CARBON DIOXIDE 20 MMOL/L (21-32); CHLORIDE 96 MMOL/L (98-107)
[2020-09-22 07:44] LABS: BUN/CREATININE RATIO 11; CREATININE SERUM 8.15 MG/DL (0.60-1.30); GFR ESTIMATED 7; GLUCOSE 102 MG/DL (70-105)
[2020-09-22 07:45] LABS: ALANINE AMINOTRANSFERASE 6 U/L (0-55); ALKALINE PHOSPHATASE 53 U/L (40-136); BILIRUBIN,TOTAL 0.5 MG/DL (0.1-1.0); CALCIUM 8.5 MG/DL (8.5-10.1)
[2020-09-22] MEDS ORDERED: NS IV 500 ML 500 ML ONE (07:53)
[2020-09-22 08:00] LABS: POTASSIUM 5.5 MMOL/L (3.6-5.0)
[2020-09-22 08:03] LABS: TOTAL PROTEIN 5.2 GM/DL (6.4-8.2)
[2020-09-22 08:04] LABS: ALBUMIN 3.2 GM/DL (3.2-4.5)
[2020-09-22 08:05] LABS: ERYTHROCYTE SEDIMENTATION RATE 52 MM/HR (0-30)
[2020-09-22] MEDS ORDERED: NS IV 500 ML 500 ML IV SCH (08:30)
[2020-09-22 10:00] VITALS: BP 125/54
--- OUTSIDE RECORDS SUMMARY | 2020-09-22 16:48 | XMS REPORT | Clinical Summary ---
Author Author [facility] Organization [facility] Address Unknown Phone Unavailable Care Team Providers Care News Intern Name Role Phone Self, Ben MCCLURE PCP Ralph Singh MD [phone] Alyssa Morejon RN [phone] Unavailable Anayeli Newton RN [phone] Unavailable Source Comments Some departments are not documenting in the electronic medical record. If you d o not see the information that you expected, contact Release of Information in [facility] Information Management department at [phone] for further assistan ce in locating additional records.[facility] Allergies Comments Active Allergy Reactions Severity Noted Date Cefazolin RASH Medium 06/02/2020 Ibuprofen HYPOTENSION High 06/02/2020 Morphine HYPOTENSION High 06/02/2020 Penicillins EDEMA Medium 06/02/2020 Promethazine PALPITATIONS Low 06/02/2020 Medications End Date Status Medication Sig Dispensed Refills Start Date Suspended promethazine (PHENERGAN) Take 25 mg by 0 25 mg tablet mouth every 6 hours as needed for Nausea or Vomiting. Suspended HYDROmorphone (DILAUDID) Take 8 mg by 0 4 mg tablet mouth daily as needed for Pain Suspended methadone (METHADOSE) 10 Take 10 mg by 0 mg tablet mouth every 8 hours Suspended temazepam (RESTORIL) 15 Take 15 mg by 0 mg capsule mouth at bedtime as needed. Suspended dexAMETHasone (DECADRON) Take 40 mg by 0 1 mg tab mouth every 7 days. Suspended lisinopriL (ZESTRIL) 5 mg Take 5 mg by 0 tablet mouth daily. Suspended folic acid 400 mcg tablet Take 666 mcg 0 by mouth daily. Suspended MELATONIN PO Take 3 mg by 0 mouth daily. Active Problems Problem Noted Date GI bleed 09/22/2020 Severe anemia 09/22/2020 Chest pain 09/22/2020 ESRD (end stage renal disease) 09/22/2020 Hyperkalemia 09/22/2020 Chronic respiratory failure with hypoxia 09/22/2020 Chronic pain due to neoplasm 09/22/2020 Stem cell transplant candidate 06/02/2020 Multiple myeloma not having achieved remission 05/11 Cancer Staging: Clinical: RISS Stage II (Lsdx-8-dgqrehaetpeyz (mg/L): 32, Albumin (g/dL): 3.2, ISS: Stage III, Hi gh-risk cytogenetics: Absent, LDH: Normal) - Signed by Ralph Singh MD on 06/01/2020 Encounters Care Team Description Date Type Specialty Oliva Corbin APRN-INSURANCE SERVICE REPRESENTATIVE Arrived 09/22/2020 Hospital Radiology Encounter David Blake MD [place] Perry Huston MD GI bleed 09/22/2020 Hospital Intensive Care Encounter 09/22/2020 Travel Vanessa Newton RN Care Coordination 08/09/2020 Telephone Oncology Vanessa Newton RN Care Coordination 08/05/2020 Telephone Oncology from Last 3 Months Surgical History Surgery Date Site/Laterality Comments HX APPENDECTOMY COLONOSCOPY HX CHOLECYSTECTOMY HX BOWEL RESECTION Bilateral Medical History Medical History Date Comments Multiple myeloma and immunoproliferative neoplasms (HCC) Renal failure Cancer of skin Hearing reduced Stomach disorder Family History Medical History Relation Name Comments Asthma Father Cancer-Prostate Father Stroke Father Cancer-Colon Maternal Grandfather Heart Disease Paternal Grandfather Relation Name Status Comments Father Alive Maternal Grandfather Paternal Grandfather Social History Date Tobacco Use Types Packs/Day Years Used Never Smoker Smokeless Tobacco: Never Used Comments Alcohol Use Standard Drinks/Week Never 0 (1 standard drink = 0.6 o z pure alcohol) Alcohol Habits Answer Date Recorded How often do you have a drink containing alcohol? Never 06/02/2020 How many drinks containing alcohol do you have on No t asked a typical day when you are drinking? How often do you have six or more drinks on one Not asked occasion? Sex Assigned at Date Recorded Not on file Date Recorded COVID-19 Exposure Response 09/22/2020 12:53 PM CDT In the last month, have you been in contact with [facility] to assess someone who was confirmed or suspected to have Coronavirus / COVID-19? Last Filed Vital Signs Reading Time Taken Comments Vital Sign 131/64 09/22/2020 4:00 PM CDT Blood Pressure 99 09/22/2020 4:00 PM CDT Pulse 36.6 C (97.8 F) 09/22/2020 1:45 PM CDT Temperature 16 06/02/2020 12:31 PM CDT Respiratory Rate 100% 09/22/2020 4:00 PM CDT Oxygen Saturation - - Inhaled Oxygen Concentration 89.3 kg (196 lb 13.9 oz) 09/22/2020 1:45 PM CDT Weight - - Height - - Body Mass Index Plan of Treatment Health Maintenance Due Date Last Done Comments MEDICARE ANNUAL WELLNESS 1955 VISIT HIV SCREENING 09/14/1971 DTAP/TDAP VACCINES (1 - 1974 Tdap) HEPATITIS C SCREENING 1974 PHYSICAL (COMPREHENSIVE) 1974 EXAM COLORECTAL CANCER 2006 SCREENING SHINGLES RECOMBINANT 2006 VACCINE (1 of 2) INFLUENZA VACCINE 11/11/2020 Procedures * The patient is currently admitted. The information in this section might not be complete until the patient is discharged. Comments Procedure Name Priority Date/Time Associated Diag nosis BLOOD GASES, CENTRAL Routine 09/22/2020 VENOUS 1:23 PM CDT BLOOD TYPE CONFIRMATION - Routine 09/22/2020 ORDER ONLY IF REQUESTED 1:15 PM CDT BY LAB CONSULT IV THERAPY TEAM Routine 09/22/2020 12:40 PM CDT POC GLUCOSE 09/22/2020 12:04 PM CDT CHEST SINGLE VIEW Routine 09/22/2020 12:03 PM CDT TYPE & CROSSMATCH STAT 09/22/2020 11:45 AM CDT C REACTIVE PROTEIN (CRP) Add on 09/22/2020 11:45 AM CDT BETA HYDROXYBUTYRATE STAT 09/22/2020 (KETONES) 11:45 AM CDT PROCALCITONIN STAT 09/22/2020 11:45 AM CDT HEMOGLOBIN A1C Routine 09/22/2020 11:45 AM CDT TSH WITH FREE T4 REFLEX Routine 09/22/2020 11:45 AM CDT BNP (B-TYPE NATRIURETIC Routine 09/22/2020 PEPTI) 11:45 AM CDT TROPONIN-I STAT 09/22/2020 11:45 AM CDT PHOSPHORUS Routine 09/22/2020 11:45 AM CDT MAGNESIUM Routine 09/22/2020 11:45 AM CDT LACTIC ACID (BG - RAPID Routine 09/22/2020 LACTATE) 11:45 AM CDT COMPREHENSIVE METABOLIC Routine 09/22/2020 PANEL 11:45 AM CDT PROTIME INR (PT) Routine 09/22/2020 11:45 AM CDT CBC AND DIFF Routine 09/22/2020 11:45 AM CDT from Last 3 Months Results * BLOOD GASES, CENTRAL VENOUS (09/22/2020 1:23 PM CDT) PH-Central 7.27 (L) 7.30 - 7.40 [facility] Venous PCO2-Central 44 >40 MMHG [facility] Venous PO2-Central 43 40 - 50 MMHG [facility] Venous Base 6.6 MMOL/L [facility] Deficit-Central Venous O2 Sat 58.4 (L) 65 - 75 % [facility] (Calc)-Central Venous Bicarb-Central 18.6 MMOL/L [facility] Venous Specimen Blood Performing Organization Address City/State/ZIP Code P greg Number MAIN LAB [address] [place] [address] * BLOOD TYPE CONFIRMATION - ORDER ONLY IF REQUESTED BY LAB (09/22/2020 1:15 PM CDT) ABO/RH(D) B POS [facility] Specimen Blood Performing Organization Address City/State/ZIP Code P greg Number [facility] [address] [place] [address] * POC GLUCOSE (09/22/2020 12:04 PM CDT) Glucose, POC 116 (H) 70 - 100 MG/DL [facility] Specimen Performing Organization Address City/[facility]/ZIP Code P greg Number [facility] [address] [place] [address] * CHEST SINGLE VIEW (09/22/2020 12:03 PM CDT) Specimen Impressions Performed At 1. Mild pulmonary edema with small left and trace rig ht pleural effusions. [facility] RESULTS Associated mild bibasilar atelectasis. By my electronic signature, I attest th at I have personally reviewed the images for this examination and formulated the interpretations and opinions expressed in this report Finalized by Luis Colon MD on 021 3:02 PM. Dictated by Nima Skinner MD on 09/22/2020 2:29 PM. Narrative Performed At CHEST SINGLE VIEW [facility] RESULTS INDICATION: chest pain COMPARISON STUDY: May 02, 2020. FINDINGS: Support Devices: Left internal jugular central venous catheter projects over the upper SVC. Right internal jugular chest port projects over the right chest wall with catheter tip projecting over the l ower SVC. Lungs/Pleura: Lung volume is normal. Di ffuse interstitial prominence throughout the lungs . Small left and trace right pleural effusion with mild bibasilar atelectasis. Heart and Mediastinum: The cardiomedias tinal silhouette is unchanged. Skeletal and soft tissue: Old rib fract ures. Lytic lesion in the anterior right sixth rib may represent patient's known myeloma. Procedure Note Interface, Radiant Results - 09/22/2020 3:05 PM CDT CHEST SINGLE VIEW INDICATION: chest pain COMPARISON STUDY: May 02, 2020. FINDINGS: Support Devices: Left internal jugular central venous catheter projects over the upper SVC. Right internal jugular chest port projects over the right chest wall with catheter tip projecting over the lower SVC. Lungs/Pleura: Lung volume is normal. Diffuse interstitial prominence throughout the lungs . Small left and trace right pleural effusion with mild bibasilar atelectasis. Heart and Mediastinum: The cardiomediastinal silhouette is unchanged. Skeletal and soft tissue: Old rib fractures. Lytic lesion in the anterior right sixth rib may represent patient's known myeloma. IMPRESSION 1. Mild pulmonary edema with small left and trace right pleural effusions. Associated mild bibasilar atelectasis. By my electronic signature, I attest that I have personally reviewed the images for this examination and formulated the interpretations and opinions expressed in this report Finalized by Luis Colon MD on 09/22/2020 3:02 PM. Dictated by Nima Skinner MD on 09/22/2020 2:29 PM. Performing Organization Address [facility] P greg Number [facility] RAD RESULTS * PROCALCITONIN (09/22/2020 11:45 AM CDT) Procalcitonin 1.51 ng/mL MAIN LAB Comment: Suspected Lower Respiratory Tract Infection: >0.25 ng/mL-Increased likeihood bacterial infection Suspected Sepsis: >0.5 ng/mL-Increased likelihood sepsis >2.0 ng/mL-High risk of sepsis/septic shock Specimen Blood Performing Organization Address [facility] P greg Number [facility] MAIN [facility] [address] [place] [address] * TSH WITH FREE T4 REFLEX (09/22/2020 11:45 AM CDT) TSH 4.09 0.35 - 5.00 MCU/ML [facility] Specimen Blood Performing Organization Address [facility] P greg Number [facility] [address] [place] [address] * BETA HYDROXYBUTYRATE (KETONES) (09/22/2020 11:45 AM CDT) Beta 0.2 <0.3 MMOL/L [facility] Hydroxybutyrate Comment: Beta hydroxybutyrate (BOHB) is the most abundant ketone (78%), followed by acetoacetate (20%) and acetone (2%). Measurement BOHB is recommended to assess ketones in DKA. Expected BOHB Results for DKA: Initial presentation high/increasing During treatment decreasing Resolved decreasing/normal Specimen Performing Organization Address [facility] P greg Number [facility] [address] [place] [address] * LACTIC ACID (BG - RAPID LACTATE) (09/22/2020 11:45 AM CDT) Pathologist [facility] Lactic Acid,BG 1.6 0.5 - 2.0 MMOL/L [facility] Specimen Blood Performing Organization Address City/[facility]/ZIP Code P greg Number [facility] MAIN [facility] [address] [place] [address] * TROPONIN-I (09/22/2020 11:45 AM CDT) Pathologist [facility] Troponin-I 0.02 0.0 - 0.05 NG/ML [facility] Specimen Blood Performing Organization Address City/[facility]/ZIP Code P greg Number [facility] [address] [place] [address] * PROTIME INR (PT) (09/22/2020 11:45 AM CDT) Pathologist [facility] INR 0.9 0.8 - 1.2 MAIN LAB Specimen Blood Performing Organization Address [facility] P greg Number [facility] [address] [place] [address] * CBC AND DIFF (09/22/2020 11:45 AM CDT) Pathologist [facility] White Blood 10.5 4.5 - 11.0 K/UL MAIN LAB Cells RBC 1.74 (L) 4.4 - 5.5 M/UL MAIN LAB Hemoglobin 5.6 (LL) 13.5 - 16.5 GM/DL MAIN LAB Comment: CRITICAL VALUE CALLED TO AND READ BACK BY/TIME/TECH DOMINIC CORBIN at 09/22/2020 14:19:49 by [id number] Hematocrit 17.2 (L) 40 - 50 % MAIN LAB MCV 98.6 80 - 100 FL MAIN LAB MCH 32.3 26 - 34 PG MAIN LAB MCHC 32.7 32.0 - 36.0 G/DL MAIN LAB RDW 23.0 (H) 11 - 15 % [facility] Platelet Count 148 (L) 150 - 400 K/UL MAIN LAB MPV 7.6 7 - 11 FL MAIN LAB Neutrophils 91 (H) 41 - 77 % MAIN LAB Lymphocytes 5 (L) 24 - 44 % MAIN LAB Monocytes 4 4 - 12 % MAIN LAB Eosinophils 0 0 - 5 % MAIN LAB Basophils 0 0 - 2 % MAIN LAB Absolute 9.58 (H) 1.8 - 7.0 K/UL [facility] Neutrophil Count Absolute Lymph 0.51 (L) 1.0 - 4.8 K/UL [facility] Count Absolute 0.37 0 - 0.80 K/UL [facility] Monocyte Count Absolute 0.02 0 - 0.45 K/UL [facility] Eosinophil Count Absolute 0.02 0 - 0.20 K/UL [facility] Basophil Count Specimen Blood Performing Organization Address City/[facility] Code P greg Number [facility] [address] [place] [address] * C REACTIVE PROTEIN (CRP) (09/22/2020 11:45 AM CDT) C-Reactive 0.50 <1.0 MG/DL [facility] Protein Specimen Performing Organization Address [facility] P greg Number MAIN LAB [address] [place] [id number] * PHOSPHORUS (09/22/2020 11:45 AM CDT) Phosphorus 9.1 (H) 2.0 - 4.5 MG/DL [facility] Specimen Blood Performing Organization Address [facility] P greg Number [facility] [address] [place] [address] * BNP (B-TYPE NATRIURETIC PEPTI) (09/22/2020 11:45 AM CDT) B Type 227.0 (H) 0 - 100 PG/ML [facility] Natriuretic Peptide Specimen Blood Performing Organization Address [facility] P greg Number MAIN LAB [address] [place] [address] * MAGNESIUM (09/22/2020 11:45 AM CDT) Magnesium 1.7 1.6 - 2.6 mg/dL [facility] Specimen Blood Performing Organization Address [facility] P greg Number [facility] [address] [place] [address] * HEMOGLOBIN A1C (09/22/2020 11:45 AM CDT) Hemoglobin A1C 5.0 4.0 - 6.0 % [facility] Comment: The ADA recommends that most patients with type 1 and type 2 diabetes maintain an A1c level <7%. Specimen Blood Performing Organization Address City/[facility] Code P greg Number [facility] [address] [place] [address] * COMPREHENSIVE METABOLIC PANEL (09/22/2020 11:45 AM CDT) Sodium 137 137 - 147 MMOL/L [facility] Potassium 7.0 (HH) 3.5 - 5.1 MMOL/L [facility] Comment: CRITICAL VALUE CALLED TO AND READ BACK BY/TIME/TECH DOMINIC CHIANG at 09/22/2020 13:08:03 by 1152 Chloride 102 98 - 110 MMOL/L [facility] Glucose 103 (H) 70 - 100 MG/DL [facility] Blood Urea 99 (H) 7 - 25 MG/DL [facility] Nitrogen Creatinine 8.54 (H) 0.4 - 1.24 MG/DL [facility] Calcium 8.3 (L) 8.5 - 10.6 MG/DL [facility] Total Protein 5.3 (L) 6.0 - 8.0 G/DL [facility] Total Bilirubin 0.3 0.3 - 1.2 MG/DL [facility] Albumin 3.2 (L) 3.5 - 5.0 G/DL [facility] Alk Phosphatase 45 25 - 110 U/L [facility] AST (SGOT) 9 7 - 40 U/L [facility] CO2 19 (L) 21 - 30 MMOL/L [facility] ALT (SGPT) 6 (L) 7 - 56 U/L [facility] Anion Gap 16 (H) 3 - 12 [facility] eGFR Non 6 (L) >60 mL/min [facility] Comment: [place] The eGFR is not validated f or use in drug dosing adjustments. Continue to use estimated creatinine clearance per dosing reference text. Please contact the Clinical Pharmacist for questions. eGFR 8 (L) >60 mL/min [facility] [place] Comment: The eGFR is not validated for use in drug dosing adjustments. Continue to use estimated creatinine clearance per dosing reference text. Please contact the Clinical Pharmacist for questions. Specimen Blood Performing Organization Address City/State/ZIP Code P greg Number [facility] [address] [place] [address] from Last 3 Months Additional Health Concerns Last Indicated Resolved Time Infection Onset Date 09/22/2020 C difficile Rule-Out 09/22/2020 Insurance Type Payer Benefit Subscriber ID Effective Phone Address Plan / Dates Group Medicare MEDICARE MEDICARE [id number] 1991-P PART A AND resent B [id number] 1 Advance Directives Patient Appliquer Zigzag Explanation Type Date Recorded Advance Directive/DPOA Date Inactivated Comments Code Status Date Activated DNAR-Full 09/22/2020 3:11 PM Intervention Provider has discussed Code Status Yes w/Patient or Family? Does the patient want any intervention Yes for a pre-arrest emergency which would necessitate transfer to an ICU setting? Respiratory emergency: does the patient No want to have intubation with mechanical ventilation? Symptomatic/hypotensive dysrhythmia with Yes a pulse: does the patient want cardioversion? Hypotension: does the patient want the Yes use of vasopressors if needed for blood pressure? Respiratory emergency: does the patient Yes want to have a trial of non-invasive positive pressure ventilation (NIPPV/BiPAP)? 09/22/2020 3:11 PM DNAR-Full 09/22/2020 12:16 PM Intervention Provider has discussed Code Status Yes w/Patient or Family? Does the patient want any intervention Yes for a pre-arrest emergency which would necessitate transfer to an ICU setting? Respiratory emergency: does the patient No want to have intubation with mechanical ventilation? Symptomatic/hypotensive dysrhythmia with Yes a pulse: does the patient want cardioversion? Hypotension: does the patient want the Yes use of vasopressors if needed for blood pressure? Respiratory emergency: does the patient Yes want to have a trial of non-invasive positive pressure ventilation (NIPPV/BiPAP)?
--- OUTSIDE RECORDS SUMMARY | 2020-09-22 16:48 | XMS REPORT | Encounter Summary ---
Author Author [facility] Organization [facility] Address Unknown Phone Unavailable Care Team Providers Care Plant Anatomist Name Role Phone Self, Ben MCCLURE PCP Ralph Singh MD [phone] Alyssa Morejon RN [phone] Unavailable Anayeli Newton RN [phone] Unavailable Reason for Visit * Reason Onset Date Comments Care Coordination 08/09/2020 Encounter Details Care Team Description Date Type Department Vanessa Newton RN Care Coordination 08/09/2020 Telephone Blood and Marrow Transplant: [address], [address] Social History Date Tobacco Use Types Packs/Day [...] Assigned at Date Recorded Not on file documented as of this encounter Miscellaneous Notes * Telephone Encounter - Vanessa Martino RN - 08/09/2020 9:54 AM CDT [facility] then called patient 's , she confirms patient is not interested in BMT. This PTC offered her dir ect phone number if patient or ever need anything in the future. Diane verba lized understanding. Anayeli Newton, RN Pager [phone] documented in this encounter Plan of Treatment Not on filedocumented as of this encounter Visit Diagnoses Not on filedocumented in this encounter Additional Health Concerns Assessment Noted Time A fall risk assessment has been completed for the pat ient 06/02/2020 12:31 PM CDT documented as of this encounter
--- OUTSIDE RECORDS SUMMARY | 2020-09-22 16:48 | XMS REPORT | Clinical Summary ---
Author Author [facility] Organization [facility] Address Unknown Phone Unavailable Care Team Providers Care Egg Separator Name Role Phone Self, Ben MCCLURE PCP Allergies Not on File Medications Not on file Active Problems Not on file Social History Date Tobacco Use Types Packs/Day Years Used Never Assessed Sex Assigned at Date Recorded Not on file Last Filed Vital Signs Not on file Plan of Treatment Not on file Results Not on filefrom Last 3 Months
--- OUTSIDE RECORDS SUMMARY | 2020-09-22 16:48 | XMS REPORT | Encounter Summary ---
Author Author [facility] Organization [facility] Address Unknown Phone Unavailable Care Team Providers Care Sports Clerk Name Role Phone Self, Ben MCCLURE PCP Ralph Singh MD [phone] Alyssa Morejon RN [phone] Unavailable Anayeli Newton RN [phone] Unavailable Reason for Visit * Reason Onset Date Comments Care Coordination 08/05/2020 Encounter Details Care Team Description Date Type Department Vanessa Newton RN Care Coordination 08/05/2020 Telephone Blood and Marrow Transplant: [address], [address] Social History Date Tobacco Use Types [...] Telephone Encounter - Vanessa Martino RN - 08/05/2020 3:[address] Logan's note on 08/01 patient is not interested in continuing with stem ce ll transplant. This PTC called patient to confirm and ensure patient has this PT C's phone number if he ever needs anything. No answer, PTC l/m with above information for him to return call. Anayeli Newton, RN Pager [phone] documented in this encounter Plan of Treatment Not on filedocumented as of this encounter Visit Diagnoses Not on filedocumented in this encounter Additional Health Concerns Assessment Noted Time A fall risk assessment has been completed for the pat ient 06/02/2020 12:31 PM CDT documented as of this encounter
--- OUTSIDE RECORDS SUMMARY | 2020-09-22 16:48 | XMS REPORT | Encounter Summary ---
Author Author [facility] Organization [facility] Address Unknown Phone Unavailable Care Team Providers Care Radioactive Waste Disposal Dispatcher Name Role Phone Self, Ben MCCLURE PCP Ralph Singh MD [phone] Alyssa Morejon RN [phone] Unavailable Anayeli Newton RN [phone] Unavailable Encounter Details Care Team Description Date Type Department 09/22/2020 Travel Social History Date Tobacco Use Types Packs/Day [...] month, have you been in contact with [facility] to assess someone who was confirmed or suspected to have Coronavirus / COVID-19? documented as of this encounter Plan of Treatment Not on filedocumented as of this encounter Visit Diagnoses Not on filedocumented in this encounter Additional Health Concerns Last Indicated Resolved Time Infection Onset Date 09/22/2020 C difficile Rule-Out 09/22/2020 Assessment Noted Time A fall risk assessment has been completed for the pat ient 09/22/2020 1:45 PM CDT documented as of this encounter
--- OUTSIDE RECORDS SUMMARY | 2020-09-22 16:48 | XMS REPORT | Encounter Summary ---
Author Author [facility] Organization [facility] Address Unknown Phone Unavailable Care Team Providers Care Websphere Commerce Consultant Name Role Phone Self, Ben MCCLURE PCP Ralph Singh MD [phone] Alyssa Morejon RN [phone] Unavailable Anayeli Newton RN [phone] Unavailable Encounter Details Care Team Description Date Type Department Oliva Corbin, CARPET INSTALLER HELPER-TAXONOMY TEACHER [address] [place] [address] Arrived 09/22/2020 Hospital Imaging: [facility], Encounter [facility] [address] [facility]. [address] [place] [address] Social History Date Tobacco Use Types Packs/Day [...] month, have you been in contact with [facility] to assess someone who was confirmed or suspected to have Coronavirus / COVID-19? documented as of this encounter Plan of Treatment Date/Time Name Type Priority Associated Diag noses 09/22/2020 11:51 AM CDT POC MICU US CARDIAC Imaging Routine LIMITED documented as of this encounter Visit Diagnoses Not on filedocumented in this encounter Additional Health Concerns Last Indicated Resolved Time Infection Onset Date 09/22/2020 C difficile Rule-Out 09/22/2020 Assessment Noted Time A fall risk assessment has been completed for the pat ient 09/22/2020 1:45 PM CDT documented as of this encounter
--- OUTSIDE RECORDS SUMMARY | 2020-09-22 16:48 | XMS REPORT | Clinical Summary ---
Author Author [facility] Address Unknown Phone Unavailable Care Team Providers Care Ammonia Solution Preparer Name Role Phone Found, Provider Not PCP Unavailable Source Comments [facility] Allergies Comments Active Allergy Reactions Severity Noted Date Butorphanol Tartrate Unknown 07/24/2010 Cephalexin Unknown 07/24/2010 Dicyclomine Unknown 07/24/2010 Ibuprofen Unknown 07/24/2010 Ofloxacin Unknown 07/24/2010 Penicillins Unknown 07/24/2010 Piperacillin Unknown 07/24/2010 Allergic to the IV form only Promethazine Other (See 07/24/2010 Comments) Zolpidem Unknown 07/24/2010 Medications * Please verify current medications with patient. End Date Status Medication Sig Dispensed Refills Start Date Active traZODone (DESYREL) 150 Take 150 mg 0 mg tablet by mouth at bedtime. Active temazepam (FOR RESTORIL) Take 30 mg by 0 30 mg capsule mouth every bedtime, as needed. For sleep Active methadone (FOR DOLOPHINE) Take 30 mg by 0 10 mg tablet mouth four times a day. Up to four times daily Active oxyCODONE (OXY-IR) 15 mg Take 15-30 mg 0 immediate release tablet by mouth every four hours, as needed. For break through pain Active PHENobarbital-belladonna Take 1-2 0 alkaloids 16.2 mg / tab tablets by (FOR ) mouth every 16.2-0.1037 -0.0194 mg six hours, as tablet needed. For stomach upset Active HYDROmorphone (FOR Take 1 tablet 20 tablet 0 07/28 DILAUDID) 4 mg tablet by mouth 1 every four hours, as needed for Moderate Pain. Active Problems Problem Noted Date Crohn's disease 07/25/2010 SBO (small bowel obstruction) 07/25/2010 Abdominal pain 07/24/2010 Social History Date Tobacco Use Types Packs/Day Years Used Never Smoker Smokeless Tobacco: Never Used Comments Alcohol Use Standard Drinks/Week No 0 (1 standard drink = 0.6 o z pure alcohol) Sex Assigned at Date Recorded Not on file Last Filed Vital Signs Reading Time Taken Comments Vital Sign 132/81 07/28/2010 7:52 AM MDT Blood Pressure 73 07/28/2010 7:52 AM MDT Pulse 37.1 C (98.8 F) 07/28/2010 7:52 AM MDT Temperature 18 07/28/2010 7:52 AM MDT Respiratory Rate 95% 07/28/2010 7:52 AM MDT Oxygen Saturation - - Inhaled Oxygen Concentration 85.6 kg (188 lb 11.4 oz) 07/24/2010 6:08 AM MDT Weight 188 cm (6' 2") 07/24/2010 6:08 AM MDT Height 24.23 07/24/2010 6:08 AM MDT Body Mass Index Plan of Treatment Health Maintenance Due Date Last Done Comments CT Colonography 1956 Colon cancer: DNA-based 1956 stool test (Cologuard) Sigmoidoscopy 1956 gFOBT or FIT 1956 COVID-19 Vaccine (1) 1968 Colonoscopy 2006 Colorectal Cancer 2006 Screening Influenza Vaccine (#1) 2020 Pneumococcal Vaccine: 65+ 2021 Years (1 of 1 - PPSV23) HPV Vaccine Aged Out No longer eligible based on patient's age to complete this topic Pneumococcal Vaccine: Aged Out No longer eligib le based on patient's age to Pediatrics (0 to 5 Years) complete this topic and At-Risk Patients (6 to 64 Years) Results Not on filefrom Last 3 Months Insurance Type Payer Benefit Subscriber ID Effective Phone Address Plan / Dates Group Medicare MEDICARE MEDICARE [id number] Effective [place] PART for all A&B dates [id number] [facility] (Home) [place], [place] [address] Advance Directives 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
--- OUTSIDE RECORDS SUMMARY | 2020-09-22 16:48 | XMS REPORT | Encounter Summary ---
Author Author [facility] Organization [facility] Address Unknown Phone Unavailable Care Team Providers Care Pilot Supervisor Name Role Phone Self, Ben MCCLURE PCP Ralph Singh MD [phone] Alyssa Morejon RN [phone] Unavailable Anayeli Newton RN [phone] Unavailable Reason for Visit * Auth/Cert Referred By Contact Referred To Contact Status Reason Specialty Diagnoses / Procedures Diagnoses GI bleed GI Bleed Encounter Details Care Team Description Date Type Department David Blake MD [address] [facility] Lvl [address] [place] [address] [phone] Perry Ramirez MD [address] [facility] Lvl [address] [place] [address] [phone] GI bleed 09/22/2020 Hospital Patient Care Unit B H63: Encounter [facility], [facility] [address] [facility] [address] [place] [address] Social History Date Tobacco Use Types Packs/Day [...] have you been in contact with Khadijah ble to assess someone who was confirmed or suspected to have Coronavirus / COVID-19? documented as of this encounter Last Filed Vital Signs Reading Time Taken Comments Vital Sign 131/64 09/22/2020 4:00 PM CDT Blood Pressure 99 09/22/2020 4:00 PM CDT Pulse 36.6 C (97.8 F) 09/22/2020 1:45 PM CDT Temperature - - Respiratory Rate 100% 09/22/2020 4:00 PM CDT Oxygen Saturation - - Inhaled Oxygen Concentration 89.3 kg (196 lb 13.9 oz) 09/22/2020 1:45 PM CDT Weight - - Height - - Body Mass Index documented in this encounter Progress Notes * Perry Ramirez MD - 09/22/2020 3:22 PM CDT MICU STAFF NOTE This note is a documentation of critical care independently provided for the pat ient today. I have seen, personally fully evaluated, and assessed the patient. The patient is critically ill with the conditions listed below: Active Hospital Problems Diagnosis GI bleed Severe anemia Chest pain ESRD (end stage renal disease) (HCC) Hyperkalemia Chronic respiratory failure with hypoxia (HCC) Chronic pain due to neoplasm Multiple myeloma not having achieved remission (HCC) I spent 85 minutes (excluding time spent performing or supervising any procedure s and independent of the time spent by the INTERNIST) providing and personally directin g critical care services including: Systems and physical examination Review and management of ICU prophylaxis and core measures Review of laboratory data Review of telemetry data Review of imaging studies Review of medications Fluid and electrolyte management The patient is a 65-year-old male with history of multiple myeloma requiring wee kly to every other week transfusions, end-stage renal disease on hemodialysis, c hronic hypoxemic respiratory failure on 2 L of oxygen, chronic pain on methadone who is being admitted to our medical ICU with a GI bleed, severe anemia and sev ere hyperkalemia. The patient states GI bleed started around 3 days ago. He pr esented this morning to an outside ER with chest pressure. He was found to have a hemoglobin of 4.5. 1 unit of packed red blood cells was given and the patient was transferred to our facility. On my exam: The patient is very pale, alert and oriented, heart with regular rat e and rhythm, decreased breathing sounds bilaterally, abdomen soft nontender, lo wer extremity without edema. Labs hemoglobin 5.6, platelets 147, white blood cell count 10.5, INR 0.9, potass ium 7, bicarb 19, anion gap 16, BNP 227. Assessment and plan: The patient is being admitted with GI bleed, severe anemia, severe hyperkalemia in the setting of chronic kidney disease on hemodialysis. We have contacted nephrology for an emergent dialysis. The patient got calcium gluconate on admission. We have also contacted GI. Start PPI BID (althouht most likely it is a lower GI bleed). We are going to transfuse with a goal of hemog lobin more than 7. We are going to obtain an EKG and trend troponins. We are a lso going to obtain a 2D echo. Otherwise continue supportive care. Perry Atkins MD T documented in this encounter Miscellaneous Notes * Advanced Care Planning/Resuscitation Status - Oliva Corbin APRN-NP - 09/22/2020 12:54 PM CDT Advance Care Planning/Resuscitation Status Conversation Individuals present for advance care planning conversation: advanced practice pr ovider, nurse and patient Pertinent details of conversation (including direct quotes from patient or surro gate): Patient would NOT like CPR or intubation. Agrees to vasopressors, cardioversion, and NIPPV. If he were not able to make decisions for self, states his Diane is his DPOA. Outcome of conversation: DNAR - Full Intervention Documents completed as a result of this conversation: None Other documents present, which outline patient/surrogate wishes: None Attestation? N/A documented in this encounter Plan of Treatment Date/Time Name Type Priority Associated Diag noses 09/22/2020 11:45 AM CDT TYPE & CROSSMATCH Blood Bank STAT 09/22/2020 11:51 AM CDT POC MICU US CARDIAC Imaging Routine LIMITED 09/22/2020 3:40 PM CDT TEG WITH KAOLIN Blood Bank Specimen in Lab 09/22/2020 3:40 PM CDT COVID-19 (SARS-COV-2) PCR Microbiology Routine Order Schedule Name Type Priority Associated Diag noses Used for early AM Blood Draw(0400) for 5 Days starting 09/23/2020 until 09/27/2020 CBC AND DIFF Lab Routine Used for early AM Blood Draw(0400) for 5 Days starting 09/23/2020 until 09/27/2020 COMPREHENSIVE METABOLIC Lab Routine PANEL Used for early AM Blood Draw(0400) until discontinued starting 09/23/2020 MAGNESIUM CELLULAR Lab Routine THERAPEUTICS Used for early AM Blood Draw(0400) until discontinued starting 09/23/2020 PHOSPHORUS CELLULAR Lab Routine THERAPEUTICS Q4HR for 3 Occurrences starting 09/23/19 21 until 09/22/2020, 1 completed TROPONIN-I Lab STAT ONE TIME for 1 Occurrences starting 09/11 until 09/22/2020 ECG 12-LEAD ECG STAT ONE TIME for 1 Occurrences starting 09/11 until 09/22/2020 POC MICU US CARDIAC Imaging Routine LIMITED Q6HR for 5 Days starting 09/22/2020 unti l 09/27/2020 CBC Lab STAT ONE TIME for 1 Occurrences starting 09/11 until 09/22/2020 HEMODIALYSIS INPATIENT Dialysis Routine ONE TIME for 1 Occurrences starting 09/11 until 09/22/2020 TEG WITH KAOLIN Blood Bank Specimen in Lab ONE TIME for 1 Occurrences starting 09/11 until 09/22/2020 COVID-19 (SARS-COV-2) PCR Microbiology Routine ONE TIME for 1 Occurrences starting 09/11 until 09/22/2020 2D + DOPPLER ECHO ECHO Routine Transfusion for 1 Occurrences starting 0 09/22/2020 TRANSFUSE RBC'S Blood Bank Routine ONE TIME for 1 Occurrences starting 09/11 until 09/22/2020 C DIFFICILE BY PCR Microbiology Routine ONE TIME for 1 Occurrences starting 09/11 until 09/22/2020 CULTURE-FECES Microbiology Routine W/SENSITIVITY Draw Next Run for 1 Occurrences starting 09/22/2020 until 09/22/2020 BASIC METABOLIC PANEL Lab STAT documented as of this encounter Procedures * The patient is currently admitted. [...] SINGLE VIEW Routine 09/22/2020 12:03 PM CDT PROCALCITONIN STAT 09/22/2020 11:45 AM CDT TSH WITH FREE T4 REFLEX Routine 09/22/2020 11:45 AM CDT BETA HYDROXYBUTYRATE STAT 09/22/2020 (KETONES) 11:45 AM CDT LACTIC ACID (BG - RAPID Routine 09/22/2020 LACTATE) 11:45 AM CDT TROPONIN-I STAT 09/22/2020 11:45 AM CDT PROTIME INR (PT) Routine 09/22/2020 11:45 AM CDT CBC AND DIFF Routine 09/22/2020 11:45 AM CDT TYPE & CROSSMATCH STAT 09/22/2020 11:45 AM CDT C REACTIVE PROTEIN (CRP) Add on 09/22/2020 11:45 AM CDT PHOSPHORUS Routine 09/22/2020 11:45 AM CDT BNP (B-TYPE NATRIURETIC Routine 09/22/2020 PEPTI) 11:45 AM CDT MAGNESIUM Routine 09/22/2020 11:45 AM CDT HEMOGLOBIN A1C Routine 09/22/2020 11:45 AM CDT COMPREHENSIVE METABOLIC Routine 09/22/2020 PANEL 11:45 AM CDT documented in this encounter Results * BLOOD GASES, CENTRAL VENOUS (09/22/2020 1:23 PM CDT) PH-Central 7.27 (L) 7.30 - 7.40 [facility] Venous PCO2-Central 44 >40 MMHG [facility] Venous PO2-Central 43 40 - 50 MMHG [facility] Venous Base 6.6 MMOL/L MAIN LAB Deficit-Central Venous O2 Sat 58.4 (L) 65 - 75 % [facility] (Calc)-Central Venous Bicarb-Central 18.6 MMOL/L MAIN LAB Venous Specimen Blood Performing Organization Address City/[facility] Code P greg Number MAIN LAB [address] [place] [address] * BLOOD TYPE CONFIRMATION - ORDER ONLY IF REQUESTED BY LAB (09/22/2020 1:15 PM CDT) ABO/RH(D) B POS MAIN LAB Specimen Blood Performing Organization Address [facility]/ZIP [facility] P greg Number MAIN LAB [address] [place] [address] * POC GLUCOSE (09/22/2020 12:04 PM CDT) Glucose, POC 116 (H) 70 - 100 MG/DL MAIN LAB Specimen Performing Organization Address [facility] P greg Number MAIN LAB [address] [place] [address] * CHEST SINGLE VIEW (09/22/2020 12:03 PM [...] on 09/22/2020 2:29 PM. Performing Organization Address City/State/ZIP Code P greg Number [facility] RAD RESULTS * C REACTIVE PROTEIN (CRP) (09/22/2020 11:45 AM CDT) C-Reactive 0.50 <1.0 MG/DL [facility] Protein Specimen Performing Organization Address City/State/ZIP Code P greg Number [facility] [address] [place] [address] * BETA HYDROXYBUTYRATE (KETONES) (09/22/2020 11:45 AM CDT) Beta 0.2 <0.3 MMOL/L [facility]IN [facility] Hydroxybutyrate Comment: Beta hydroxybutyrate (BOHB) is the most abundant ketone (78%), followed by acetoacetate (20%) and acetone (2%). Measurement BOHB is recommended to assess ketones in DKA. Expected BOHB Results for DKA: Initial presentation high/increasing During treatment decreasing Resolved decreasing/normal Specimen Performing Organization Address [facility] P greg Number [facility] [address] [place] [address] * PROCALCITONIN (09/22/2020 11:45 AM CDT) Procalcitonin 1.51 ng/mL [facility] Comment: Suspected Lower Respiratory Tract Infection: >0.25 ng/mL-Increased likeihood bacterial infection Suspected Sepsis: >0.5 ng/mL-Increased likelihood sepsis >2.0 ng/mL-High risk of sepsis/septic shock Specimen Blood Performing Organization Address [facility] P greg Number MAIN LAB [address] [place], [place] [phone] * HEMOGLOBIN A1C (09/22/2020 11:45 AM CDT) Hemoglobin A1C 5.0 4.0 - 6.0 % [facility] Comment: The ADA recommends that most patients with type 1 and type 2 diabetes maintain an A1c level <7%. Specimen Blood Performing Organization Address [facility] P greg Number MAIN LAB [address] [place] [phone] * TSH WITH FREE T4 REFLEX (09/22/2020 11:45 AM CDT) TSH 4.09 0.35 - 5.00 MCU/ML MAIN LAB Specimen Blood Performing Organization Address [facility] P greg Number MAIN LAB [address] [place] [phone] * BNP (B-TYPE NATRIURETIC PEPTI) (09/22/2020 11:45 AM CDT) B Type 227.0 (H) 0 - 100 PG/ML [facility] Natriuretic Peptide Specimen Blood Performing Organization Address [facility] P greg Number [facility] MAIN LAB [address] [place] [address] * TROPONIN-I (09/22/2020 11:45 AM CDT) Troponin-I 0.02 0.0 - 0.05 NG/ML [facility] MAIN [facility] Specimen Blood Performing Organization Address City/[facility] Code P greg Number [facility] MAIN [facility] [address] [place] [address] * PHOSPHORUS (09/22/2020 11:45 AM CDT) Phosphorus 9.1 (H) 2.0 - 4.5 MG/DL [facility] Specimen Blood Performing Organization Address City/[facility]/ZIP Code P greg Number [facility]IN [facility] [address] [place] [id number] * MAGNESIUM (09/22/2020 11:45 AM CDT) Magnesium 1.7 1.6 - 2.6 mg/dL [facility] Specimen Blood Performing Organization Address [facility] P greg Number [facility] MAIN [facility] [address] [place] [address] * LACTIC ACID (BG - RAPID LACTATE) (09/22/2020 11:45 AM CDT) Lactic Acid,BG 1.6 0.5 - 2.0 MMOL/L [facility] Specimen Blood Performing Organization Address [facility] P greg Number [facility] MAIN [facility] [address] [place] [address] * COMPREHENSIVE METABOLIC PANEL (09/22/2020 11:45 AM [...] Anion Gap 16 (H) 3 - 12 MAIN LAB eGFR Non 6 (L) >60 mL/min [facility] Comment: Thai The eGFR is not validated f or use in drug dosing adjustments. Continue to use estimated creatinine clearance per dosing reference text. Please contact the Clinical Pharmacist for questions. eGFR 8 (L) >60 mL/min [facility] Thai Comment: The eGFR is not validated for use in drug dosing adjustments. Continue to use estimated creatinine clearance per dosing reference text. Please contact the Clinical Pharmacist for questions. Specimen Blood Performing Organization Address City/State/ZIP Code P greg Number MAIN LAB [address] [place] [address] * PROTIME INR (PT) (09/22/2020 11:45 AM CDT) INR 0.9 0.8 - 1.2 [facility] Specimen Blood Performing Organization Address City/State/ZIP Code P greg Number [facility] [address] [place] [address] * CBC AND DIFF (09/22/2020 11:45 AM CDT) White Blood 10.5 4.5 - 11.0 K/UL [facility] Cells RBC 1.74 (L) 4.4 - 5.5 M/UL MAIN LAB Hemoglobin 5.6 (LL) 13.5 - 16.5 GM/DL MAIN LAB Comment: CRITICAL VALUE CALLED TO AND READ BACK BY/TIME/TECH DOMINIC CORBIN at 09/22/2020 14:19:49 by [id number] Hematocrit 17.2 (L) 40 - 50 % [facility] MCV 98.6 80 - 100 FL MAIN LAB MCH 32.3 26 - 34 PG MAIN LAB MCHC 32.7 32.0 - 36.0 G/DL MAIN LAB RDW 23.0 (H) 11 - 15 % [facility] Platelet Count 148 (L) 150 - 400 K/UL [facility] MPV 7.6 7 - 11 FL [facility] Neutrophils 91 (H) 41 - 77 % [facility] Lymphocytes 5 (L) 24 - 44 % [facility] Monocytes 4 4 - 12 % [facility] Eosinophils 0 0 - 5 % [facility] Basophils 0 0 - 2 % [facility] Absolute 9.58 (H) 1.8 - [...] Basophil Count Specimen Blood Performing Organization Address City/State/ZIP Code P greg Number [facility] [address] [place] [address] documented in this encounter Visit Diagnoses Diagnosis GI bleed - Primary Hemorrhage of gastrointestinal tract, u nspecified Severe anemia Chest pain Chest pain, unspecified Multiple myeloma not having achieved re mission (HCC) Multiple myeloma, without mention of king ving achieved remission ESRD (end stage renal disease) ([facility]) End stage renal disease Hyperkalemia Hyperpotassemia Chronic respiratory failure with hypoxi a (HCC) Chronic respiratory failure Chronic pain due to neoplasm documented in this encounter Admitting Diagnoses Diagnosis GI bleed Hemorrhage of gastrointestinal tract, u nspecified documented in this encounter Administered Medications Action Date Dose Rate Site Medication Order MAR Action pantoprazole (PROTONIX) injection 40 mg 40 mg, Intravenous, TWICE DAILY, First dose on Sat09/22/20 at 2100, Until Discontinued perflutren lipid microspheres (DEFINITY ) injection 1-20 Diluted mL 1-20 Diluted mL, Intravenous, ONCE PRN, 1 dose, Starting on Sat09/22/20 at 1538 , Until Sat09/22/20 at 2359, For Procedure, A solar energy sales specialist may only administer Definity through a saline lock. If IV is in use or a port, PICC, or central line is being used a nurse must administer. NOTE: This is a HIGH ALERT Medication., MAC Procedure Area Only - Medications sodium chloride 0.9 % infusion 2,000 mL, 2,000 mL, Intravenous, at 999 mL/hr, PRN IN IP DIALYSIS, 1 dose, Starting on Yisel 09/22/20 at 1413, Until Sat09/23/20 at 0613, for dialysis, Use to flush dialysis circuit during anticoagulation. Infuse 100-200 mL at 30-60 minute intervals, clamping arterial tubing during infusion. May ru n in at dialysis machine's set Blood Flow Rate. Only broomcorn grader can release and administer, Dialysis/Apheresis Procedur e sodium chloride 0.9 % infusion 250 mL, 200 mL, Intravenous, at 999 mL/hr, PRN IN IP DIALYSIS, 1 dose, Starting on Yisel 09/22/20 at 1413, Until Sat09/23/20 at 0613, Other..., hypotension secondary to dialysis, For bolus use only. May give bolus times 5 for symptoms of hypotension (i.e.: lightheadedness, cramping, diaphoresis, nausea, changes in LOC), contact provider if symptoms persist. May run in at dialysis machine's set Blood Flow Rate. Second Line therapy when ordered with Albumin. Only broomcorn grader can release and administer, Dialysis/Apheresis Procedure Action Date Dose Rate Site Medication Order MAR Action 09/22/2020 2:15 PM CDT 3.8 mL anticoagulant sodium citrate solution Given 1-6 mL 1-6 mL, Intra-catheter, PRN IN IP DIALYSIS, 1 dose, Starting on Yisel 09/22/20 at 1413, Until Sat09/22/20 at 1415, Other..., For use to pack vascula r access, Administer volume appropriate t o catheter lumen size. Only broomcorn grader can release and administer. NOTE: This is a HIGH ALERT Medication., Dialysis/Apheresis Procedure 09/22/2020 1:59 PM CDT 1 g 660 mL/hr calcium gluconate 1 g in sodium chloride Given - New 0.9% (NS) 110 mL IVPB (MB+) Bag 1 g, Intravenous, 110 mL, Administer over 10 Minutes, ONCE, 1 dose, On Yisel 09/22/20 at 1445, Infuse each 1gm over 1 0 minutes -- Please adjust duration accordingly. 09/22/2020 2:14 PM CDT 300 mL 999 mL/hr sodium chloride 0.9 % infusion Given - New 1,000 mL, 300 mL, Intravenous, at 999 Bag mL/hr, PRN IN IP DIALYSIS, 1 dose, Starting on Yisel 09/22/20 at 1413, Until Yisel 09/22/20 at 1414, Other..., Prime Rinse, For Prime/Rinseback May run in a t dialysis machine's set Blood Flow Rate. Only broomcorn grader can release and administer., Dialysis/Apheresis Procedure documented in this encounter Active and Recently Administered Medications Times are shown in CDT. 09/21/2020 09/22/2020 Medication Order 09/20/2020 1359 (Given - New Bag - Provider: Nadia Cabezas, DOMINIC) calcium gluconate 1 g in sodium chlorid e 0.9% (NS) 110 mL IVPB (MB+) (COMPLETED) 1 g, Intravenous, 110 mL, Administer over 10 Minutes, ONCE, 1 dose, On Yisel 09/22/20 at 1445, Infuse each 1gm over 1 0 minutes -- Please adjust duration accordingly. 1730 (Due) methadone (METHADOSE) tablet 10 mg 10 mg, Oral, EVERY 8 HOURS, First dose on Yisel 09/22/20 at 1730, Until Discontinued 2100 (Due) pantoprazole (PROTONIX) injection 40 mg 40 mg, Intravenous, TWICE DAILY, First dose on Yisel 09/22/20 at 2100, Until Discontinued 09/21/2020 09/22/2020 Medication Order 09/20/2020 1415 (Given - Provider: Aparna Garcia RN ) anticoagulant sodium citrate solution 1-6 mL (COMPLETED) 1-6 mL, Intra-catheter, PRN IN IP DIALYSIS, 1 dose, Starting on Yisel 09/22/20 at 1413, Until Yisel 09/22/20 at 1415, Other..., For use to pack vascula r access, Administer volume appropriate t o catheter lumen size. Only broomcorn grader can release and administer. NOTE: This is a HIGH ALERT Medication., Dialysis/Apheresis Procedure 1542 (Due) perflutren lipid microspheres (DEFINITY ) injection 1-20 Diluted mL 1-20 Diluted mL, Intravenous, ONCE PRN, 1 dose, Starting on Yisel 09/22/20 at 1538 , Until Yisel 09/22/20 at 2359, For Procedure, A solar energy sales specialist may only administer Definity through a saline lock. If IV is in use or a port, PICC, or central line is being used a nurse must administer. NOTE: This is a HIGH ALERT Medication., MAC Procedure Area Only - Medications sodium chloride 0.9 % infusion 2,000 mL, 2,000 mL, Intravenous, at 999 mL/hr, PRN IN IP DIALYSIS, 1 dose, Starting on Yisel 09/22/20 at 1413, Until Sat09/23/20 at 0613, for dialysis, Use to flush dialysis circuit during anticoagulation. Infuse 100-200 mL at 30-60 minute intervals, clamping arterial tubing during infusion. May ru n in at dialysis machine's set Blood Flow Rate. Only broomcorn grader can release and administer, Dialysis/Apheresis Procedur e 1414 (Given - New Bag - Provider: Aparna Garcia RN) sodium chloride 0.9 % infusion (COMPLETED) 1,000 mL, 300 mL, Intravenous, at 999 mL/hr, PRN IN IP DIALYSIS, 1 dose, Starting on Yisel 09/22/20 at 1413, Until Yisel 09/22/20 at 1414, Other..., Prime Rinse, For Prime/Rinseback May run in a t dialysis machine's set Blood Flow Rate. Only broomcorn grader can release and administer., Dialysis/Apheresis Procedure sodium chloride 0.9 % infusion 250 mL, 200 mL, Intravenous, at 999 mL/hr, PRN IN IP DIALYSIS, 1 dose, Starting on Yisel 09/22/20 at 1413, Until Sat09/23/20 at 0613, Other..., hypotension secondary to dialysis, For bolus use only. May give bolus times 5 for symptoms of hypotension (i.e.: lightheadedness, cramping, diaphoresis, nausea, changes in LOC), contact provider if symptoms persist. May run in at dialysis machine's set Blood Flow Rate. Second Line therapy when ordered with Albumin. Only broomcorn grader can release and administer, Dialysis/Apheresis Procedure documented in this encounter Orders First Ordered Date Medications Ordered That Might Not Have Count Last Ordered Date Been Administered methadone (METHADOSE) tablet 10 mg 1 01/2021 pantoprazole (PROTONIX) injection 40 mg 3 09/22/2020 perflutren lipid microspheres (DEFINITY) 1 09/22/2020 injection 1-20 Diluted mL sodium chloride 0.9 % infusion 2 09/22 First Ordered Date Lab Orders Without Results Count Last Ordere d Date PREPARE RBC'S 1 09/22/2020 TRANSFUSE RBC'S 1 09/22/2020 First Ordered Date Procedures Count Last Ordered Date CONSULT IV THERAPY TEAM 1 09/22/2020 First Ordered Date Diet Count Last Ordered Date DIET CLEAR LIQUID 1 09/22/2020 DIET NPO AT MIDNIGHT 1 09/22/2020 First Ordered Date Nursing Count Last Ordered Date IMPLEMENT ADULT ACTIVE SURVEILLANCE 1 PROTOCOL IMPLEMENT ADULT AND PEDIATRIC: SEASONAL 1 09/22/2020 INFLUENZA AND PNEUMOCOCCAL VACCINE SCREENING IMPLEMENT C DIFFICILE TESTING PROTOCOL 1 09/22/2020 IMPLEMENT CONFIRMATION BLOOD TYPE (CBT) 1 09/22/2020 PROTOCOL IMPLEMENT COVID-19 VACCINE PROTOCOL 1 IMPLEMENT EMERGENT SITUATIONS, CARE OF 1 09/22/2020 THE ADULT PATIENT PROTOCOL IMPLEMENT GENERAL IV LINE FLUSH PROTOCOL 1 09/22/2020 IMPLEMENT HEPATITIS B INFECTION CONTROL 1 09/22/2020 FOR HEMODIALYSIS PROTOCOL IMPLEMENT HYPOGLYCEMIA MANAGEMENT OF 1 0 09/22/2020 ADULT PATIENTS PROTOCOL IMPLEMENT IMPAIRED SKIN INTEGRITY WOUND 1 09/22/2020 CARE AND MAINTENANCE IMPLEMENT MANAGEMENT OF THE ADULT AND 1 09/22/2020 ADOLESCENT PATIENT WITH KNOWN OR SUSPECTED OBSTRUCTIVE SLEEP APNEA (LYNETTE) PROTOCOL IMPLEMENT SLEEP PROMOTION IN ADULT 1 01/2021 INPATIENT UNITS PROTOCOL (EXCLUDING MATERNAL CHILD) IMPLEMENT STANDARD BED AND PRESSURE 1 RELIEF SURFACE SELECTION PROTOCOL IMPLEMENT SUICIDE PREVENTION PROTOCOL 1 09/22/2020 IMPLEMENT SUSPECTED TRANSFUSION REACTION 2 09/22/2020 PROTOCOL NEURO CHECKS 4 09/22/2020 NOTIFY PHYSICIAN 1 09/22/2020 NOTIFY PHYSICIAN IF: 1 09/22/2020 NURSE COMMUNICATION 1 09/22/2020 VITAL SIGNS FOR TRANSFUSION 1 09/22/2020 WEIGH PATIENT 1 09/22/2020 First Ordered Date Code Status Count Last Ordered Date DNAR-FI (DO NOT ATTEMPT 1 09/22/2020 RESUSCITATION-FULL INTERVENTION) First Ordered Date Consult Count Last Ordered Date CONSULT GASTROENTEROLOGY PHYSICIAN 1 01/2021 CONSULT NEPHROLOGY PHYSICIAN 1 First Ordered Date Isolation Count Last Ordered Date DROPLET WITH EYE PROTECTION ISOLATION 1 09/22/2020 First Ordered Date OT Count Last Ordered Date OT CONSULT OCCUPATIONAL THERAPY 1 2020 First Ordered Date PT Count Last Ordered Date PT CONSULT PHYSICAL THERAPY 1 09/22/2020 First Ordered Date Admission Count Last Ordered Date ADMIT TO INPATIENT (NO BED REQUEST) 1 First Ordered Date Vital Signs Count Last Ordered Date VITAL SIGNS 1 09/22/2020 First Ordered Date Activity Count Last Ordered Date MOBILITY 1 09/22/2020 First Ordered Date Order Set Communication Count Last Ordered D ate VTE DRUG PROPHYLAXIS CONTRAINDICATED 1 0 09/22/2020 First Ordered Date Intake & Output Count Last Ordered Date INTAKE AND OUTPUT 1 09/22/[address] & Maintain Count Last Ordered Date PLACE AND MAINTAIN SCD 1 09/22/2020 documented in this encounter Additional Health Concerns Last Indicated Resolved Time Infection Onset Date 09/22/2020 C difficile Rule-Out 09/22/2020 Assessment Noted Time A fall risk assessment has been completed for the pat ient 09/22/2020 1:45 PM CDT documented as of this encounter
== END 2020-09-22 10:00 | disposition short-term general hospital (02) ==
LOC: EDUNIT# 06:47 → ER FS 06:48
DX: K62.5 Hemorrhage of anus and rectum (principal); D50.9 Iron deficiency anemia, unspecified; K50.90 Crohn's disease, unspecified, without complications; E03.9 Hypothyroidism, unspecified; Z99.2 Dependence on renal dialysis; Z86.73 Personal history of transient ischemic attack (TIA), and cerebral infarction without residual deficits; Z79.890 Hormone replacement therapy; Z79.899 Other long term (current) drug therapy
CPT/HCPCS: 36415; 80053; 84484; 85025; 85652; 86141; 86850; 86900; 86901; 86920; 86922; 93005; 93041; 99285; P9016

== ENCOUNTER 2020-11-21 14:36 | Outpatient (RCR) | payer MEDICARE ==
[2020-08-29 15:23] LABS: BASOPHILS % (AUTO) 0 % (0-10)
[2020-08-29 15:24] LABS: EOSINOPHILS # (AUTO) 0.5 10^3/uL (0.0-0.3); EOSINOPHILS % (AUTO) 6 % (0-10); HEMATOCRIT 23 % (40-54); HEMOGLOBIN 7.1 g/dL (13.3-17.7); LYMPHOCYTES # (AUTO) 0.6 10^3/uL (1.0-4.0); LYMPHOCYTES % (AUTO) 7 % (12-44); MEAN CORPUSCULAR HEMOGLOBIN 33 pg (25-34); MEAN CORPUSCULAR HGB CONC 31 g/dL (32-36); MEAN CORPUSCULAR VOLUME 108 fL (80-99); MONOCYTES # (AUTO) 0.7 10^3/uL (0.0-1.0); MONOCYTES % (AUTO) 9 % (0-12); NEUTROPHILS # (AUTO) 6.3 10^3/uL (1.8-7.8); NEUTROPHILS % (AUTO) 77 % (42-75); PLATELET COUNT 139 10^3/uL (130-400); WHITE BLOOD COUNT 8.1 10^3/uL (4.3-11.0)
[2020-08-29 15:41] LABS: ALBUMIN 3.7 GM/DL (3.2-4.5); BILIRUBIN,TOTAL 0.8 MG/DL (0.1-1.0); CALCIUM 8.5 MG/DL (8.5-10.1); CREATININE SERUM 4.36 MG/DL (0.60-1.30); POTASSIUM 4.5 MMOL/L (3.6-5.0); TOTAL PROTEIN 6.7 GM/DL (6.4-8.2)
[2020-09-05 15:22] LABS: BASOPHILS % (AUTO) 1 % (0-10); EOSINOPHILS # (AUTO) 0.3 10^3/uL (0.0-0.3); EOSINOPHILS % (AUTO) 5 % (0-10); HEMATOCRIT 22 % (40-54); LYMPHOCYTES # (AUTO) 0.6 X 10^3 (1.0-4.0); LYMPHOCYTES % (AUTO) 8 % (12-44); MEAN CORPUSCULAR HEMOGLOBIN 33 pg (25-34); MEAN CORPUSCULAR HGB CONC 31 g/dL (32-36); MEAN CORPUSCULAR VOLUME 107 fL (80-99); MEAN PLATELET VOLUME 9.8 fL (9.0-12.2); MONOCYTES # (AUTO) 0.7 X 10^3 (0.0-1.0); MONOCYTES % (AUTO) 10 % (0-12); NEUTROPHILS % (AUTO) 76 % (42-75); PLATELET COUNT 104 10^3/uL (130-400); WHITE BLOOD COUNT 6.5 10^3/uL (4.3-11.0)
[2020-09-05 15:27] LABS: HEMOGLOBIN 6.7 g/dL (13.3-17.7)
[2020-09-05 15:49] LABS: ALBUMIN 3.6 GM/DL (3.2-4.5); BILIRUBIN,TOTAL 0.8 MG/DL (0.1-1.0); CALCIUM 8.6 MG/DL (8.5-10.1); CREATININE SERUM 4.27 MG/DL (0.60-1.30); POTASSIUM 4.4 MMOL/L (3.6-5.0); TOTAL PROTEIN 6.7 GM/DL (6.4-8.2)
[2020-09-12 15:23] LABS: BASOPHILS % (AUTO) 1 % (0-10); EOSINOPHILS # (AUTO) 0.3 10^3/uL (0.0-0.3); EOSINOPHILS % (AUTO) 6 % (0-10); HEMATOCRIT 27 % (40-54); HEMOGLOBIN 8.6 g/dL (13.3-17.7); LYMPHOCYTES # (AUTO) 0.6 X 10^3 (1.0-4.0); LYMPHOCYTES % (AUTO) 10 % (12-44); MEAN CORPUSCULAR HEMOGLOBIN 33 pg (25-34); MEAN CORPUSCULAR HGB CONC 32 g/dL (32-36); MEAN CORPUSCULAR VOLUME 104 fL (80-99); MEAN PLATELET VOLUME 9.9 fL (9.0-12.2); MONOCYTES # (AUTO) 0.7 X 10^3 (0.0-1.0); MONOCYTES % (AUTO) 12 % (0-12); NEUTROPHILS % (AUTO) 72 % (42-75); PLATELET COUNT 89 10^3/uL (130-400); WHITE BLOOD COUNT 5.5 10^3/uL (4.3-11.0)
[2020-09-12 15:34] LABS: CALCIUM 9.2 MG/DL (8.5-10.1); CREATININE SERUM 4.19 MG/DL (0.60-1.30); POTASSIUM 4.3 MMOL/L (3.6-5.0)
[2020-09-20 15:13] LABS: MEAN CORPUSCULAR HEMOGLOBIN 33 pg (25-34)
[2020-09-20 15:15] LABS: BASOPHILS % (AUTO) 0 % (0-10); EOSINOPHILS # (AUTO) 0.4 10^3/uL (0.0-0.3); EOSINOPHILS % (AUTO) 4 % (0-10); HEMATOCRIT 27 % (40-54); HEMOGLOBIN 8.4 g/dL (13.3-17.7); LYMPHOCYTES # (AUTO) 0.8 10^3/uL (1.0-4.0); LYMPHOCYTES % (AUTO) 9 % (12-44); MEAN CORPUSCULAR HGB CONC 31 g/dL (32-36); MEAN CORPUSCULAR VOLUME 107 fL (80-99); MEAN PLATELET VOLUME 9.8 fL (9.0-12.2); MONOCYTES # (AUTO) 0.6 10^3/uL (0.0-1.0); MONOCYTES % (AUTO) 8 % (0-12); NEUTROPHILS # (AUTO) 6.5 10^3/uL (1.8-7.8); NEUTROPHILS % (AUTO) 78 % (42-75); PLATELET COUNT 161 10^3/uL (130-400); WHITE BLOOD COUNT 8.4 10^3/uL (4.3-11.0)
[2020-09-20 15:24] LABS: ALBUMIN 3.7 GM/DL (3.2-4.5); BILIRUBIN,TOTAL 0.7 MG/DL (0.1-1.0); CALCIUM 9.3 MG/DL (8.5-10.1); CREATININE SERUM 3.73 MG/DL (0.60-1.30); POTASSIUM 4.1 MMOL/L (3.6-5.0); TOTAL PROTEIN 6.7 GM/DL (6.4-8.2)
[2020-11-02 14:38] LABS: BASOPHILS % (AUTO) 0 % (0-10); EOSINOPHILS % (AUTO) 0 % (0-10); HEMATOCRIT 29 % (40-54); HEMOGLOBIN 9.2 g/dL (13.3-17.7); LYMPHOCYTES # (AUTO) 0.3 X 10^3 (1.0-4.0); LYMPHOCYTES % (AUTO) 5 % (12-44); MEAN CORPUSCULAR HEMOGLOBIN 31 pg (25-34); MEAN CORPUSCULAR HGB CONC 31 g/dL (32-36); MEAN CORPUSCULAR VOLUME 98 fL (80-99); MEAN PLATELET VOLUME 9.8 fL (9.0-12.2); MONOCYTES # (AUTO) 0.3 X 10^3 (0.0-1.0); MONOCYTES % (AUTO) 5 % (0-12); NEUTROPHILS # (AUTO) 5.9 X 10^3 (1.8-7.8); NEUTROPHILS % (AUTO) 89 % (42-75); PLATELET COUNT 140 10^3/uL (130-400); WHITE BLOOD COUNT 6.6 10^3/uL (4.3-11.0)
[2020-11-02 14:55] LABS: ALBUMIN 3.5 GM/DL (3.2-4.5); BILIRUBIN,TOTAL 0.6 MG/DL (0.1-1.0); CREATININE SERUM 2.73 MG/DL (0.60-1.30); POTASSIUM 3.9 MMOL/L (3.6-5.0); TOTAL PROTEIN 6.1 GM/DL (6.4-8.2)
[2020-11-07 15:00] LABS: BASOPHILS % (AUTO) 0 % (0-10); EOSINOPHILS % (AUTO) 0 % (0-10); HEMATOCRIT 29 % (40-54); HEMOGLOBIN 9.1 g/dL (13.3-17.7); LYMPHOCYTES # (AUTO) 0.4 X 10^3 (1.0-4.0); LYMPHOCYTES % (AUTO) 4 % (12-44); MEAN CORPUSCULAR HEMOGLOBIN 32 pg (25-34); MEAN CORPUSCULAR HGB CONC 32 g/dL (32-36); MEAN CORPUSCULAR VOLUME 100 fL (80-99); MEAN PLATELET VOLUME 9.9 fL (9.0-12.2); MONOCYTES # (AUTO) 0.4 X 10^3 (0.0-1.0); MONOCYTES % (AUTO) 4 % (0-12); NEUTROPHILS # (AUTO) 9.2 X 10^3 (1.8-7.8); NEUTROPHILS % (AUTO) 91 % (42-75); PLATELET COUNT 172 10^3/uL (130-400); WHITE BLOOD COUNT 10.1 10^3/uL (4.3-11.0)
[2020-11-07 15:24] LABS: CALCIUM 9.9 MG/DL (8.5-10.1); CREATININE SERUM 3.1 MG/DL (0.60-1.30); POTASSIUM 4.3 MMOL/L (3.6-5.0)
[2020-11-14 15:05] LABS: BASOPHILS % (AUTO) 0 % (0-10); EOSINOPHILS # (AUTO) 0.1 10^3/uL (0.0-0.3); EOSINOPHILS % (AUTO) 1 % (0-10); HEMATOCRIT 31 % (40-54); HEMOGLOBIN 9.6 g/dL (13.3-17.7); LYMPHOCYTES # (AUTO) 0.3 10^3/uL (1.0-4.0); LYMPHOCYTES % (AUTO) 4 % (12-44); MEAN CORPUSCULAR HEMOGLOBIN 32 pg (25-34); MEAN CORPUSCULAR HGB CONC 31 g/dL (32-36); MEAN CORPUSCULAR VOLUME 104 fL (80-99); MEAN PLATELET VOLUME 9.8 fL (9.0-12.2); MONOCYTES # (AUTO) 0.3 10^3/uL (0.0-1.0); MONOCYTES % (AUTO) 4 % (0-12); NEUTROPHILS # (AUTO) 7.7 10^3/uL (1.8-7.8); NEUTROPHILS % (AUTO) 91 % (42-75); PLATELET COUNT 170 10^3/uL (130-400); WHITE BLOOD COUNT 8.5 10^3/uL (4.3-11.0)
[2020-11-14 15:41] LABS: CALCIUM 9.4 MG/DL (8.5-10.1); CREATININE SERUM 4.28 MG/DL (0.60-1.30); POTASSIUM 4.4 MMOL/L (3.6-5.0)
[~2020-11-21 14:36] MED LIST changes: +ACETAMINOPHEN 325 MG TAB (TYLENOL) CANCER CTR PO PRN; +BORTEZOMIB 3.5 MG VELCADE IV SCH; +DENOSUMAB 120 MG/1.7 ML (XGEVA) SQ SCH; +METH-742 PO; -METH10TA2 PO; +MONTELUKAST 10 MG (SINGULAIR) TAB PO SCH; +NS (IVPB) CANCER CENTER 250 ML ONE; +[UNRECOGNIZED DRUG - OTHER] SQ SCH; +diphenhydrAMINE 25 MG TAB (BENADRYL) CANCER CENTER PO SCH
[2020-11-21 14:54] LABS: BASOPHILS % (AUTO) 0 % (0-10); EOSINOPHILS # (AUTO) 0.1 10^3/uL (0.0-0.3); EOSINOPHILS % (AUTO) 1 % (0-10); HEMATOCRIT 32 % (40-54); HEMOGLOBIN 10.1 g/dL (13.3-17.7); LYMPHOCYTES # (AUTO) 0.4 X 10^3 (1.0-4.0); LYMPHOCYTES % (AUTO) 6 % (12-44); MEAN CORPUSCULAR HEMOGLOBIN 33 pg (25-34); MEAN CORPUSCULAR HGB CONC 32 g/dL (32-36); MEAN CORPUSCULAR VOLUME 103 fL (80-99); MEAN PLATELET VOLUME 9.7 fL (9.0-12.2); MONOCYTES # (AUTO) 0.3 X 10^3 (0.0-1.0); MONOCYTES % (AUTO) 4 % (0-12); NEUTROPHILS # (AUTO) 5.9 X 10^3 (1.8-7.8); NEUTROPHILS % (AUTO) 88 % (42-75); PLATELET COUNT 157 10^3/uL (130-400); WHITE BLOOD COUNT 6.7 10^3/uL (4.3-11.0)
[2020-11-21 15:14] LABS: ALBUMIN 3.9 GM/DL (3.2-4.5); BILIRUBIN,TOTAL 0.8 MG/DL (0.1-1.0); CALCIUM 10.4 MG/DL (8.5-10.1); CREATININE SERUM 3.57 MG/DL (0.60-1.30); TOTAL PROTEIN 6.5 GM/DL (6.4-8.2)
== END 2020-11-27 | disposition home or self-care (01) ==
LOC: ONC 14:36
PROVIDERS: ATTEND Internal Medicine Hematology & Oncology
DX: Z51.11 Encounter for antineoplastic chemotherapy (principal); C90.00 Multiple myeloma not having achieved remission; D64.9 Anemia, unspecified; M47.814 Spondylosis without myelopathy or radiculopathy, thoracic region; M47.816 Spondylosis without myelopathy or radiculopathy, lumbar region; M47.817 Spondylosis without myelopathy or radiculopathy, lumbosacral region; M51.24 Other intervertebral disc displacement, thoracic region; M51.26 Other intervertebral disc displacement, lumbar region; M51.27 Other intervertebral disc displacement, lumbosacral region; M48.04 Spinal stenosis, thoracic region; M48.061 Spinal stenosis, lumbar region without neurogenic claudication; M48.07 Spinal stenosis, lumbosacral region
CPT/HCPCS: 36430; 36591; 80048; 80053; 82232; 82784; 83883; 84155; 84165; 85025; 86850; 86900; 86901; 86922; 96372; 96375; 96401; 99213

== ENCOUNTER 2020-12-26 14:44 | Outpatient (RCR) | payer MEDICARE ==
[2020-11-28 14:56] LABS: MEAN CORPUSCULAR VOLUME 105 fL (80-99)
[2020-11-28 14:58] LABS: BASOPHILS % (AUTO) 0 % (0-10); EOSINOPHILS # (AUTO) 0.1 10^3/uL (0.0-0.3); EOSINOPHILS % (AUTO) 1 % (0-10); HEMATOCRIT 31 % (40-54); HEMOGLOBIN 9.7 g/dL (13.3-17.7); LYMPHOCYTES # (AUTO) 0.4 10^3/uL (1.0-4.0); LYMPHOCYTES % (AUTO) 7 % (12-44); MEAN CORPUSCULAR HEMOGLOBIN 33 pg (25-34); MEAN CORPUSCULAR HGB CONC 32 g/dL (32-36); MEAN PLATELET VOLUME 9.8 fL (9.0-12.2); MONOCYTES # (AUTO) 0.5 10^3/uL (0.0-1.0); MONOCYTES % (AUTO) 9 % (0-12); NEUTROPHILS # (AUTO) 4.8 10^3/uL (1.8-7.8); NEUTROPHILS % (AUTO) 82 % (42-75); PLATELET COUNT 149 10^3/uL (130-400); WHITE BLOOD COUNT 5.9 10^3/uL (4.3-11.0)
[2020-12-19 10:24] LABS: BASOPHILS % (AUTO) 0 % (0-10); EOSINOPHILS # (AUTO) 0.2 10^3/uL (0.0-0.3); EOSINOPHILS % (AUTO) 3 % (0-10); HEMATOCRIT 33 % (40-54); HEMOGLOBIN 10.3 g/dL (13.3-17.7); LYMPHOCYTES # (AUTO) 0.7 10^3/uL (1.0-4.0); LYMPHOCYTES % (AUTO) 11 % (12-44); MEAN CORPUSCULAR HEMOGLOBIN 34 pg (25-34); MEAN CORPUSCULAR HGB CONC 32 g/dL (32-36); MEAN CORPUSCULAR VOLUME 107 fL (80-99); MEAN PLATELET VOLUME 9.5 fL (9.0-12.2); MONOCYTES # (AUTO) 0.5 10^3/uL (0.0-1.0); MONOCYTES % (AUTO) 8 % (0-12); NEUTROPHILS # (AUTO) 5.2 10^3/uL (1.8-7.8); NEUTROPHILS % (AUTO) 77 % (42-75); PLATELET COUNT 145 10^3/uL (130-400); WHITE BLOOD COUNT 6.7 10^3/uL (4.3-11.0)
[2020-12-19 10:42] LABS: ALANINE AMINOTRANSFERASE < 6 U/L (0-55); ALKALINE PHOSPHATASE 68 U/L (40-136); BILIRUBIN,TOTAL 0.8 MG/DL (0.1-1.0); BUN/CREATININE RATIO 10; CALCIUM 10.9 MG/DL (8.5-10.1); CARBON DIOXIDE 17 MMOL/L (21-32); CHLORIDE 101 MMOL/L (98-107); CREATININE SERUM 9.74 MG/DL (0.60-1.30); GFR ESTIMATED 5; GLUCOSE 93 MG/DL (70-105); POTASSIUM 5.6 MMOL/L (3.6-5.0); SODIUM 137 MMOL/L (135-145); TOTAL PROTEIN 6.9 GM/DL (6.4-8.2)
[~2020-12-26 14:44] MED LIST changes: -ACETAMINOPHEN 325 MG TAB (TYLENOL) CANCER CTR PO PRN; -BORTEZOMIB 3.5 MG VELCADE IV SCH; -DENOSUMAB 120 MG/1.7 ML (XGEVA) SQ SCH; -LISI-729 PO; +LISI5TAB20 PO; -MONTELUKAST 10 MG (SINGULAIR) TAB PO SCH; -NS (IVPB) CANCER CENTER 250 ML ONE; -TERB250T16 PO; +TERB250T88 PO; -[UNRECOGNIZED DRUG - OTHER] SQ SCH; -diphenhydrAMINE 25 MG TAB (BENADRYL) CANCER CENTER PO SCH
== END 2021-02-10 | disposition home or self-care (01) ==
LOC: ONC 14:44
PROVIDERS: ATTEND Internal Medicine Hematology & Oncology
DX: Z45.2 Encounter for adjustment and management of vascular access device (principal); C90.00 Multiple myeloma not having achieved remission; E03.9 Hypothyroidism, unspecified; N18.5 Chronic kidney disease, stage 5; D63.1 Anemia in chronic kidney disease; I63.9 Cerebral infarction, unspecified; I82.409 Acute embolism and thrombosis of unspecified deep veins of unspecified lower extremity; Z92.21 Personal history of antineoplastic chemotherapy
CPT/HCPCS: 85025; G0463; 36591; 80053; 82232; 82784; 83883; 99213

== ENCOUNTER → 2021-01-12 | Outpatient (CLI) | payer MEDICARE ==
--- NOTE | 2021-01-12 17:33 | Diagnostic Imaging Report ---
INDICATION: Right hip injury from a fall. 2 views of the right hip shows generalized osteoporosis with some small lytic areas present throughout the pelvis and femur. There is mild joint space narrowing of the hip. IMPRESSION: Mild degenerative changes of the hip. No fractures seen. There is decreased density with multiple small osteolytic lesions in the bones that could be due to metastatic disease or multiple myeloma. Dictated by: Dictated on workstation # [id number]
--- NOTE | 2021-01-12 17:35 | Diagnostic Imaging Report ---
INDICATION: Right rib injury from a fall. 3 views of the right ribs are obtained. There is expansile lesion in the right anterior 6th rib. There is slight deformity of the lateral 10th rib. IMPRESSION: Possible nondisplaced fracture right lateral 10th rib. Clinical correlation recommended. 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 There are no effusions or pneumothoraces. There is some osteolytic lesion seen in the humerus and scapula. Dictated by: Dictated on workstation # [id number]
== END ==
LOC: RAD FS 16:21
PROVIDERS: ATTEND Family Medicine
DX: M16.11 Unilateral primary osteoarthritis, right hip (principal); M89.9 Disorder of bone, unspecified; R07.81 Pleurodynia; W19.XXXA Unspecified fall, initial encounter
CPT/HCPCS: 71100; 73502